=== PATIENT | female | born 1960 | race Caucasian/White ===

== ENCOUNTER 2017-02-17 12:41 | Observation (INO) | payer OTHER ==
[~2017-02-17] VITALS: Ht 147.3 cm; Wt 83.4 kg
[~2017-02-17 12:41] MED LIST: DICL50TA3 PO; LEVO125T4 PO; LORA-373 PO; OMEP40CA2 PO
[2017-02-17 15:18] VITALS: BP 127/90; PULSE 93; RESP 18; TEMP 99; O2SAT 96
[2017-02-17] MEDS ORDERED: SODIUM CHLORIDE 0.9% FLUSH 10 ML FLUSH IV FLUSH PRN (16:00)
[2017-02-17] MEDS: NS + KCL 20 MEQ INJ 1,000 ML IV SCH (17:08)
[2017-02-17] MEDS: ONDANSETRON HCL 4 MG/2 ML VIAL IV PUSH PRN ×2 (17:08→23:28)
[2017-02-17] MEDS: ACETAMINOPHEN/HYDROcodone 325 MG/5 MG TAB PO PRN (17:09)
--- NOTE | 2017-02-17 17:30 | HHI.HP ---
[facility] Jose Mancuso MD Admission Diagnosis Diagnoses: (1) Sepsis Diagnosis: Principal (2) Diverticulitis Diagnosis: Principal (3) Leukocytosis Diagnosis: Principal Chief Complaint: Abdominal pain Travel History International Travel<30 Days: No Contact w/Intl Traveler <30 Da: No Sepsis Criteria SIRS Criteria (2 or more): Heart rate over 90, WBC > 98442, < 4000 or > 10% bands Sepsis Criteria (SIRS+source): Infect source susp/known History of Present Illness Written by Juliano Joe, acting as scribe for Dr. Saini on 02/17/17 at 17: 30. 56 year-old female with known history of asthma, hypothyroidism, hyperlipidemia , gastroesophageal reflux who presented to hospital because of abdominal pain. Patient states that her symptoms started one week ago where she had a minor abdominal discomfort located in the left middle area which was a 3/10 on a pain scale. Patient states that on the pain started moving all over her abdomen with developing abdominal distention, shooting pain down in her abdomen. Patient states that she had been constipated for 2 days and has not been able to eat for the last 2 days. She is only been drinking fluids. She states that her last bowel movement was green. She denied any hematochezia, melena. She did have 2 episodes of nausea vomiting 1 time night and one time yesterday morning. She denied any hematemesis or coffee-ground emesis. Patient states that all but she can't get comfortable without lying down. She states that whenever she sat up her pain was 5-6 on a pain scale. Because her pain has not improved and progressively got worse she went to emergency department for evaluation. Patient was found to have criteria for sepsis with leukocytosis, tachycardia, and CT finding of diverticulitis. Patient denies any previous history of diverticulitis. She has never had a colonoscopy. Review of Systems Gastrointestinal: COMPLAINS OF: Abdominal pain, Constipation, Nausea, Vomiting Musculoskeletal: COMPLAINS OF: Joint pain Except as stated in HPI: all other systems reviewed are Neg Past Family Social History Past Medical History Hyperlipidemia Hypothyroidism asthma Gastroesophageal reflux Past Surgical History Hysterectomy Right hip surgery Hiatal hernia surgery Reported Medications Reported Meds & Active Scripts Active Reported Lorazepam 0.5 Mg Tab 0.5 Mg PO BID Levothyroxine (Levothyroxine Sodium) 125 Mcg Tab 125 Mcg PO DAILY Diclofenac Sodium DR (Diclofenac Sodium) 50 Mg Tabdr 50 Mg PO BID Omeprazole 40 Mg Cap 40 Mg PO DAILY Allergies: Coded Allergies: No Known Allergies (Verified Allergy, Unknown, 02/17/17) Family History Reviewed is significant for mother with diabetes, father had intracranial hemorrhage Social History Patient does smoke intermittently. Approximately 2 cigarettes a day. Denies any alcohol use. She does smoke marijuana occasionally Physical Exam Vital Signs Vital Signs Date Time Temp Pulse Resp B/P (MAP) Pulse Ox O2 Delivery O2 Flow Rate FiO2 02/17/17 15:18 99.0 93 18 127/90 (102) 96 Physical Exam GENERAL: Well-developed, well-nourished, in no acute distress. alert and orientated HEENT: Head is normocephalic without any lesions or masses noted. Facial features are symmetric. Eyes: Pupils equal round reactive to light. Extraocular muscles are intact. Conjunctivae were clear. Oropharyngeal: Pharynx without any erythema edema. Tongue is midline without deviation. Buccal mucosa is moist without any masses or lesions NECK: Supple without any masses. Trachea midline no deviation. No JVD, no bruits are appreciated CARDIAC: Regular rhythm, regular rate. S1/S2 are heard. No murmurs gallops or rubs. LUNGS: Clear to auscultation bilaterally. No wheeze, rhonchi or rales. No use of accessory muscles on inspiration or expiration. ABDOMEN: Soft, mild generalized abdominal tenderness. Nondistended. Bowel sounds heard in all 4 quadrants. No organomegaly or masses. Negative rebound, negative guarding EXTREMITIES: No edema, pulses are equal bilaterally. No cyanosis or clubbing NEUROLOGY: Mood and affect appear appropriate. Cranial nerves II through XII grossly intact. Muscle strength 5/5 in upper and lower extremities bilaterally. Deep tendon reflexes are 2+ in upper and lower extremities bilaterally. Septic Shock Reassessment Heart: Regular rate and rhythm Lungs: Clear Skin: Warm, [place] Peripheral Pulses: Bounding Right Radial Bounding Left Radial Capillary Refill: Brisk, <2 seconds Caprini VTE Risk Assessment Caprini VTE Risk Assessment: Mod/High Risk (score >= 2) Caprini Risk Assessment Model Point Value = 1 Point Value = 2 Point Value = 3 Point Value = 5 Age 41-60 Minor surgery BMI > 25 kg/m2 Swollen legs Varicose veins or History of unexplained or recurrent spontaneous Oral contraceptives or hormone replacement Sepsis (< 1 month) Serious lung disease, including pneumonia (< 1 month) Abnormal pulmonary function Acute myocardial infarction Congestive heart failure (< 1 month) History of inflammatory bowel disease Medical patient at bed rest Age 61-74 Arthroscopic surgery Major open surgery (> 45 min) Laparoscopic surgery (> 45 min) Malignancy Confined to bed (> 72 hours) Immobilizing plaster cast Central venous access Age >= 75 History of VTE Family history of VTE Factor V Leiden Prothrombin [id number] Lupus anticoagulant Anticardiolipin antibodies Elevated serum homocysteine Heparin-induced thrombocytopenia Other congenital or acquired thrombophilia Stroke (< 1 month) Elective arthroplasty Hip, pelvis, or leg fracture Acute spinal cord injury (< 1 month) Prophylaxis Regimen Total Risk Factor Score Risk Level Prophylaxis Regimen 0-1 Low Early ambulation 2 Moderate Order ONE of the following: *Sequential Compression Device (SCD) *Heparin 5000 units SQ BID 3-4 Higher Order ONE of the following medications: *Heparin 5000 units SQ TID *Enoxaparin/Lovenox 40 mg SQ daily (WT < 150 kg, CrCl > 30 mL/min) *Enoxaparin/Lovenox 30 mg SQ daily (WT < 150 kg, CrCl > 10-29 mL/min) *Enoxaparin/Lovenox 30 mg SQ BID (WT < 150 kg, CrCl > 30 mL/min) AND/OR *Sequential Compression Device (SCD) 5 or more Highest Order ONE of the following medications: *Heparin 5000 units SQ TID (Preferred with Epidurals) *Enoxaparin/Lovenox 40 mg SQ daily (WT < 150 kg, CrCl > 30 mL/min) *Enoxaparin/Lovenox 30 mg SQ daily (WT < 150 kg, CrCl > 10-29 mL/min) *Enoxaparin/Lovenox 30 mg SQ BID (WT < 150 kg, CrCl > 30 mL/min) AND *Sequential Compression Device (SCD) Assessment and Plan Assessment and Plan Sepsis Patient met criteria on admission with leukocytosis, tachycardia, radiculitis Patient started on empirical antibiotics include Cipro and Flagyl Urine analysis was unremarkable Obtain blood cultures Monitor for any fever, signs of worsening infection Diverticulitis CT scan does indicate focal inflammatory changes with the mid sigmoid colon suggestive of diverticulitis. Patient started on Cipro and Flagyl Continue nothing by mouth, IV fluids, pain control Monitor for clinical improvement Hypothyroidism Continue home medications DVT prevention Sequential compression devices Juliano Joe Feb 17, 2017 17:30 Pretty Saini MD Feb 17, 2017 17:30
[2017-02-17 20:00] VITALS: BP 133/94; PULSE 91; RESP 18; TEMP 98.3; O2SAT 96
[2017-02-17] MEDS: metroNIDAZOLE 500 MG INJ 100 ML IV SCH (20:42)
[2017-02-17] MEDS: SODIUM CHLORIDE 0.9% FLUSH 10 ML FLUSH IV FLUSH SCH (21:00)
[2017-02-17] MEDS ORDERED: PROMETHAZINE HCL 25 MG SUPP RECTAL ONE (21:30)
[2017-02-17] MEDS: CIPROFLOXACIN 400 MG PREMIX 200 ML IV SCH (21:52)
[2017-02-17] MEDS: ACETAMINOPHEN 325 MG TAB PO PRN (23:37)
[2017-02-18] VITALS: BP 112/75; PULSE 84; RESP 16; TEMP 98; O2SAT 95
[2017-02-18 04:00] VITALS: BP 102/67; PULSE 82; RESP 18; TEMP 97.7; O2SAT 96
[2017-02-18] MEDS: metroNIDAZOLE 500 MG INJ 100 ML IV SCH ×3 (04:13→21:14)
[2017-02-18] MEDS: NS + KCL 20 MEQ INJ 1,000 ML IV SCH ×2 (04:13→15:59)
[2017-02-18] MEDS: LEVOTHYROXINE SODIUM 125 MCG TAB PO SCH (05:24)
[2017-02-18 07:08] LABS: BASOPHIL # 0.1 TH/MM3 (0-0.2); BASOPHIL % 0.8 % (0.0-2.0); EOSINOPHIL # 0.2 TH/MM3 (0-0.4); EOSINOPHIL % 1.4 % (0.0-4.0); HEMATOCRIT 37.1 % (35.0-46.0); HEMO FLAGS DIFF FINAL; LYMPH % 17.4 % (9.0-44.0); LYMPHOCYTE # 2.2 TH/MM3 (1.0-4.8); MEAN CELL VOLUME 87.6 FL (80.0-100.0); MEAN CORPUSCULAR HEMOGLOBIN 29.3 PG (27.0-34.0); MEAN CORPUSCULAR HGB CONC 33.4 % (32.0-36.0); MONO % 8.9 % (0.0-8.0); NEUT % 71.5 % (16.0-70.0); PLATELET COUNT 195 TH/MM3 (150-450); RED BLOOD COUNT 4.23 MIL/MM3 (4.00-5.30); RED CELL DISTRIBUTION WIDTH 13.2 % (11.6-17.2); WHITE BLOOD COUNT 12.6 TH/MM3 (4.0-11.0)
[2017-02-18 07:09] LABS: POTASSIUM 3.7 MEQ/L (3.5-5.1)
[2017-02-18 07:12] LABS: BICARBONATE 25.4 MEQ/L (21.0-32.0)
[2017-02-18 08:00] VITALS: BP 116/79; PULSE 85; RESP 16; TEMP 98.7; O2SAT 95
[2017-02-18] MEDS: PANTOPRAZOLE SOD 40 MG DELAYED RELEASE TAB PO SCH (09:25)
[2017-02-18] MEDS: SODIUM CHLORIDE 0.9% FLUSH 10 ML FLUSH IV FLUSH SCH ×2 (09:25→21:00)
[2017-02-18] MEDS: CIPROFLOXACIN 400 MG PREMIX 200 ML IV SCH ×2 (09:25→22:30)
[2017-02-18] MEDS: ACETAMINOPHEN/HYDROcodone 325 MG/5 MG TAB PO PRN ×2 (09:26→22:30)
[2017-02-18] MEDS: ONDANSETRON HCL 4 MG/2 ML VIAL IV PUSH PRN (09:26)
[2017-02-18 12:00] VITALS: BP 99/70; PULSE 83; RESP 15; TEMP 97.9; O2SAT 95
--- NOTE | 2017-02-18 12:18 | HHI.PR ---
Subjective Remarks No abdominal pain, no nausea or vomiting, patient eating Jell-O and doing well with that Objective Vitals Vital Signs Date Time Temp Pulse Resp B/P (MAP) Pulse Ox O2 Delivery O2 Flow Rate FiO2 02/18/17 10:36 18 02/18/17 08:00 98.7 85 16 116/79 (91) 95 02/18/17 04:00 97.7 82 18 102/67 (79) 96 02/18/17 00:00 98.0 84 16 112/75 (87) 95 02/17/17 20:00 98.3 91 18 133/94 (107) 96 02/17/17 15:18 99.0 93 18 127/90 (102) 96 I/O 02/17/17 02/17/17 02/17/17 02/18/17 02/18/17 02/18/17 07:00 15:00 23:00 07:00 15:00 23:00 Intake Total 1672 ml 1420 ml Balance 1672 ml 1420 ml Intake Oral 480 ml 480 ml IV Total 1192 ml 940 ml # Voids 5 3 # Bowel Movements 0 0 Result Diagram: 02/18/17 0650 02/18/17 0650 Objective Remarks GENERAL: This is a well-nourished, well-developed patient, in no apparent distress. SKIN: No rashes, warm and dry HEAD: Atraumatic. Normocephalic. EYES: Pupils equal round and reactive. Extraocular motions intact. No scleral icterus. ENT: Nose without bleeding, or drainage, Airway patent. NECK: Trachea midline. Supple CARDIOVASCULAR: Regular rate and rhythm without murmurs, gallops, or rubs. RESPIRATORY: Fair air entry bilaterally. No wheezes, rales, or rhonchi. GASTROINTESTINAL: Abdomen soft, non-tender, nondistended. Positive bowel sounds MUSCULOSKELETAL: Extremities without clubbing, cyanosis, or edema. Pedal pulses appreciated NEUROLOGICAL: Awake and alert. Moves all extremity. Normal speech.no focal neurological deficit A/P Problem List: (1) Sepsis ICD Code: A41.9 - Sepsis, unspecified organism (2) Diverticulitis ICD Code: K57.92 - Diverticulitis of intestine, part unspecified, without perforation or abscess without bleeding (3) Leukocytosis ICD Code: D72.829 - Elevated white blood cell count, unspecified Assessment and Plan Sepsis Patient met criteria on admission with leukocytosis, tachycardia, diverticuli Continue empirical antibiotics include Cipro and Flagyl Urine analysis was unremarkable Obtain blood cultures Monitor for any fever, signs of worsening infection Leukocytosis 12 K BTB seen and Diverticulitis CT scan does indicate focal inflammatory changes with the mid sigmoid colon suggestive of diverticulitis. Patient started on Cipro and Flagyl Continue nothing by mouth, IV fluids, pain control Monitor for clinical improvement Hypothyroidism Continue home medications Pretty Saini MD Feb 18, 2017 12:18
[2017-02-18 16:00] VITALS: BP 116/77; PULSE 92; RESP 16; TEMP 99.3; O2SAT 94
[2017-02-18 20:00] VITALS: BP 123/73; PULSE 101; RESP 20; TEMP 99.7; O2SAT 93
[2017-02-19] VITALS: BP 116/76; PULSE 98; RESP 18; TEMP 98.6; O2SAT 93
[2017-02-19] MEDS: NS + KCL 20 MEQ INJ 1,000 ML IV SCH ×2 (03:45→17:20)
[2017-02-19] MEDS: ACETAMINOPHEN 325 MG TAB PO PRN (05:41)
[2017-02-19] MEDS: LEVOTHYROXINE SODIUM 125 MCG TAB PO SCH (05:41)
[2017-02-19] MEDS: metroNIDAZOLE 500 MG INJ 100 ML IV SCH ×3 (07:27→20:36)
[2017-02-19 08:00] VITALS: BP 132/73; PULSE 87; RESP 18; TEMP 97.5; O2SAT 95
[2017-02-19] MEDS: PANTOPRAZOLE SOD 40 MG DELAYED RELEASE TAB PO SCH (08:42)
[2017-02-19] MEDS: SODIUM CHLORIDE 0.9% FLUSH 10 ML FLUSH IV FLUSH SCH ×2 (08:47→21:00)
[2017-02-19] MEDS: CIPROFLOXACIN 400 MG PREMIX 200 ML IV SCH ×3 (08:47→22:22)
--- NOTE | 2017-02-19 10:49 | HHI.PR ---
Subjective Remarks Patient still having significant tenderness to palpation in her abdomen No nausea or vomiting, she did pass some stool no blood I would keep her tonight for 1 more day of iv antibiotic, slowly advance her diet hopefully discharge in a.m. if abdominal pain improved Objective Vitals Vital Signs Date Time Temp Pulse Resp B/P (MAP) Pulse Ox O2 Delivery O2 Flow Rate FiO2 02/19/17 08:00 97.5 87 18 132/73 (92) 95 02/19/17 00:00 98.6 98 18 116/76 (89) 93 02/18/17 20:00 99.7 101 20 123/73 (90) 93 02/18/17 16:00 99.3 92 16 116/77 (90) 94 02/18/17 12:00 97.9 83 15 99/70 (80) 95 I/O 02/18/17 02/18/17 02/18/17 02/19/17 02/19/17 02/19/17 07:00 15:00 23:00 07:00 15:00 23:00 Intake Total 1420 ml 720 ml 755 ml 1100 ml Balance 1420 ml 720 ml 755 ml 1100 ml Intake Oral 480 ml 420 ml 480 ml 480 ml IV Total 940 ml 300 ml 275 ml 620 ml # Voids 3 1 4 3 # Bowel Movements 0 0 0 Result Diagram: 02/18/1750 02/18/17 0650 Objective Remarks GENERAL: This is a well-nourished, well-developed patient, in no apparent distress. SKIN: No rashes, warm and dry HEAD: Atraumatic. Normocephalic. EYES: Pupils equal round and reactive. Extraocular motions intact. No scleral icterus. ENT: Nose without bleeding, or drainage, Airway patent. NECK: Trachea midline. Supple CARDIOVASCULAR: Regular rate and rhythm without murmurs, gallops, or rubs. RESPIRATORY: Fair air entry bilaterally. No wheezes, rales, or rhonchi. GASTROINTESTINAL: Abdomen soft, non-tender, nondistended. Positive bowel sounds MUSCULOSKELETAL: Extremities without clubbing, cyanosis, or edema. Pedal pulses appreciated NEUROLOGICAL: Awake and alert. Moves all extremity. Normal speech.no focal neurological deficit A/P Problem List: (1) Sepsis ICD Code: A41.9 - Sepsis, unspecified organism (2) Diverticulitis ICD Code: K57.92 - Diverticulitis of intestine, part unspecified, without perforation or abscess without bleeding (3) Leukocytosis ICD Code: D72.829 - Elevated white blood cell count, unspecified Assessment and Plan Sepsis Patient met criteria on admission with leukocytosis, tachycardia, diverticuli Continue empirical antibiotics include Cipro and Flagyl Urine analysis was unremarkable Obtain blood cultures Monitor for any fever, signs of worsening infection Leukocytosis 12 K BTB seen and Diverticulitis CT scan does indicate focal inflammatory changes with the mid sigmoid colon suggestive of diverticulitis. Patient started on Cipro and Flagyl Advance diet gradually, DC IV fluids when oral diet improved, pain control Monitor for clinical improvement Hypothyroidism Continue home medications Discharge Planning In a.m. if abdominal tenderness improved Pretty Saini MD Feb 19, 2017 10:49
[2017-02-19 12:00] VITALS: BP 142/94; PULSE 92; RESP 18; TEMP 98.4; O2SAT 96
[2017-02-19 16:00] VITALS: BP_SYST 110; BP_SYST 136; BP_DIAS 63; BP_DIAS 78; PULSE 112; PULSE 60; RESP 18; RESP 20; TEMP 97.8; TEMP 99; O2SAT 95; O2SAT 96
[2017-02-19 20:00] VITALS: BP 114/76; PULSE 112; RESP 18; TEMP 99.8; O2SAT 94
[2017-02-20] VITALS: BP 124/76; PULSE 106; RESP 20; TEMP 98.2; O2SAT 96
[2017-02-20] MEDS: NS + KCL 20 MEQ INJ 1,000 ML IV SCH (03:39)
[2017-02-20] MEDS: metroNIDAZOLE 500 MG INJ 100 ML IV SCH (03:39)
[2017-02-20] MEDS: LEVOTHYROXINE SODIUM 125 MCG TAB PO SCH (05:28)
[2017-02-20 08:00] VITALS: BP 119/91; PULSE 84; RESP 20; TEMP 97.8; O2SAT 96
[2017-02-20] MEDS: SODIUM CHLORIDE 0.9% FLUSH 10 ML FLUSH IV FLUSH SCH (09:42)
[2017-02-20] MEDS: CIPROFLOXACIN 400 MG PREMIX 200 ML IV SCH (09:42)
[2017-02-20] MEDS: PANTOPRAZOLE SOD 40 MG DELAYED RELEASE TAB PO SCH (09:42)
[2017-02-20] MEDS ORDERED: CIPR-9 PO (11:26)
[2017-02-20] MEDS ORDERED: METR500T10 PO (11:26)
--- NOTE | 2017-02-20 11:27 | HHI.DCPOC ---
Discharge Care Plan Diagnosis: (1) Diverticulitis Goals to Promote Your Health * To prevent worsening of your condition and complications * To maintain your health at the optimal level Directions to Meet Your Goals Take your medications as prescribed Follow your dietary instruction Follow activity as directed Keep your appointments as scheduled Take your immunizations and boosters as scheduled If your symptoms worsen call your PCP, if no PCP go to Urgent Care Center or Emergency Room Smoking is Dangerous to Your Health. Avoid second hand smoke Call the 24-hour hour crisis hotline for domestic abuse at Subha Martinez MD Feb 20, 2017 11:27
--- NOTE | 2017-02-20 11:29 | HHI.DS ---
Discharge Summary Admission Date Feb 17, 2017 at 15:08 Discharge Date: Feb 20, 2017 Admitting Diagnosis Diverticulitis (1) Sepsis ICD Code: A41.9 - Sepsis, unspecified organism Diagnosis: Principal (2) Diverticulitis ICD Code: K57.92 - Diverticulitis of intestine, part unspecified, without perforation or abscess without bleeding Diagnosis: Principal (3) Leukocytosis ICD Code: D72.829 - Elevated white blood cell count, unspecified Diagnosis: Principal Procedures none Brief History - From Admission Written by Juliano Joe, acting as scribe for Dr. Saini on 02/17/17 at 17: 30. 56 year-old female with known history of asthma, hypothyroidism, hyperlipidemia , gastroesophageal reflux who presented to hospital because of abdominal pain. Patient states that her symptoms started one week ago where she had a minor abdominal discomfort located in the left middle area which was a 3/10 on a pain scale. Patient states that on the pain started moving all over her abdomen with developing abdominal distention, shooting pain down in her abdomen. Patient states that she had been constipated for 2 days and has not been able to eat for the last 2 days. She is only been drinking fluids. She states that her last bowel movement was green. She denied any hematochezia, melena. She did have 2 episodes of nausea vomiting 1 time night and one time yesterday morning. She denied any hematemesis or coffee-ground emesis. Patient states that all but she can't get comfortable without lying down. She states that whenever she sat up her pain was 5-6 on a pain scale. Because her pain has not improved and progressively got worse she went to emergency department for evaluation. Patient was found to have criteria for sepsis with leukocytosis, tachycardia, and CT finding of diverticulitis. Patient denies any previous history of diverticulitis. She has never had a colonoscopy. CBC/BMP: 02/18/17 0650 02/18/17 0650 Significant Findings Laboratory Tests Test 02/18/17 06:50 White Blood Count 12.6 TH/MM3 (4.0-11.0) Neutrophils (%) (Auto) 71.5 % (16.0-70.0) Monocytes (%) (Auto) 8.9 % (0.0-8.0) Neutrophils # (Auto) 9.0 TH/MM3 (1.8-7.7) Monocytes # (Auto) 1.1 TH/MM3 (0-0.9) Calcium Level 8.3 MG/DL (8.5-10.1) Imaging CT abdomen and pelvis completed 02/17 at [facility], did show mid sigmoid diverticulitis PE at Discharge GENERAL: This is a well-nourished, well-developed patient, in no apparent distress. SKIN: No rashes, warm and dry HEAD: Atraumatic. Normocephalic. EYES: Pupils equal round and reactive. Extraocular motions intact. No scleral icterus. ENT: Nose without bleeding, or drainage, Airway patent. NECK: Trachea midline. Supple CARDIOVASCULAR: Regular rate and rhythm without murmurs, gallops, or rubs. RESPIRATORY: Fair air entry bilaterally. No wheezes, rales, or rhonchi. GASTROINTESTINAL: Abdomen soft, non-tender, nondistended. Positive bowel sounds MUSCULOSKELETAL: Extremities without clubbing, cyanosis, or edema. Pedal pulses appreciated NEUROLOGICAL: Awake and alert. Moves all extremity. Normal speech.no focal neurological deficit Pt update on day of discharge Patient seen and evaluated in follow-up for diverticulitis. Overall improved. Abdominal pain and bowels are improved. No fever. Discharge plans discussed with patient and family at bedside Hospital Course This patient is a 56 her female who is treated for a flare of diverticulitis. She has had diverticular disease in the past but never had a flare of the inflammation. She was given IV antibiotics and improved. Overall patient did well and was discharged home after IV fluids and antibiotics Pt Condition on Discharge: Good Discharge Disposition: Discharge Home Discharge Time: > 30 minutes Discharge Instructions DIET: Follow Instructions for: Diverticulitis Diet, Low Fat Diet Activities you can perform: Regular-No Restrictions Follow up Referrals: PCP Follow-up - 1 Week New Medications: Ciprofloxacin (Cipro) 500 Mg Tab 500 MG PO BID for Infection, #20 TAB 0 Refills Metronidazole (Metronidazole) 500 Mg Tab 500 MG PO TID for Infection, #30 TAB 0 Refills Continued Medications: Diclofenac Sodium DR (Diclofenac Sodium DR) 50 Mg Tabdr 50 MG PO BID, TAB 0 Refills Levothyroxine (Levothyroxine) 125 Mcg Tab 125 MCG PO DAILY for Thyroid, TAB 0 Refills Lorazepam (Lorazepam) 0.5 Mg Tab 0.5 MG PO BID, TAB 0 Refills Omeprazole (Omeprazole) 40 Mg Cap 40 MG PO DAILY, CAP 0 Refills Subha Martinez MD Feb 20, 2017 11:29
== END 2017-02-20 12:52 | disposition home or self-care (01) ==
LOC: PHEDDLT 14:58 → PH3A 15:08
PROVIDERS: ADMIT Hospitalist; ATTEND Hospitalist
DX: K57.92 Diverticulitis of intestine, part unspecified, without perforation or abscess without bleeding (principal); A41.9 Sepsis, unspecified organism; E03.9 Hypothyroidism, unspecified; R00.0 Tachycardia, unspecified; K21.9 Gastro-esophageal reflux disease without esophagitis; J45.909 Unspecified asthma, uncomplicated; E78.5 Hyperlipidemia, unspecified; K59.00 Constipation, unspecified; R11.2 Nausea with vomiting, unspecified; F17.210 Nicotine dependence, cigarettes, uncomplicated; F12.90 Cannabis use, unspecified, uncomplicated
CPT/HCPCS: 74177; 80048; 80053; 81001; 83690; 85025; 87040; 96365; 96366; 96368; 96375; G0378; J0744; J2405; J3480; J7030; Q9967; 96361; 96367

== ENCOUNTER 2017-04-06 20:00 | Inpatient (IN) | payer OTHER, MEDICARE ==
[~2017-04-06] VITALS: Ht 147.3 cm; Wt 83.0 kg
[~2017-04-06 20:00] MED LIST changes: +CIPR-9 PO; -LORA-373 PO; +LORA0.5T PO; +METR1TAB76 PO
[2017-04-06 20:14] VITALS: BP 147/103; PULSE 125; RESP 18; TEMP 97.9; O2SAT 96
[2017-04-06 23:21] VITALS: BP 133/92; PULSE 98; RESP 18; O2SAT 95
[2017-04-06] MEDS ORDERED: SODIUM CHLOR 0.9% 1000 ML INJ 1,000 ML IV SCH (23:54)
[2017-04-07] VITALS (8 sets, daily range): BP systolic 94–133; BP diastolic 67–87; PULSE 75–84; RESP 18–20; TEMP 96.5–98; O2SAT 93–97
[2017-04-07] MEDS ORDERED: ONDANSETRON HCL 4 MG/2 ML VIAL IVP ONE
[2017-04-07] MEDS ORDERED: MORPHINE SULFATE 4 MG/ML INJ IV PUSH ONE
[2017-04-07] MEDS ORDERED: PIPERACIL-TAZO 3.375 GM PREMIX 50 ML IV ONE
[2017-04-07 00:34] LABS: AUTOMATED NEUTROPHIL # 8.7 TH/MM3 (1.8-7.7); BASOPHIL # 0.1 TH/MM3 (0-0.2); BASOPHIL % 0.7 % (0.0-2.0); EOSINOPHIL # 0.1 TH/MM3 (0-0.4); EOSINOPHIL % 1.2 % (0.0-4.0); HEMATOCRIT 43.7 % (35.0-46.0); LYMPH % 16.6 % (9.0-44.0); LYMPHOCYTE # 1.9 TH/MM3 (1.0-4.8); MEAN CELL VOLUME 88.5 FL (80.0-100.0); MEAN CORPUSCULAR HGB CONC 31.7 % (32.0-36.0); MONO % 6.4 % (0.0-8.0); NEUT % 75.1 % (16.0-70.0); PLATELET COUNT 296 TH/MM3 (150-450); RED BLOOD COUNT 4.94 MIL/MM3 (4.00-5.30); RED CELL DISTRIBUTION WIDTH 14.2 % (11.6-17.2); WHITE BLOOD COUNT 11.5 TH/MM3 (4.0-11.0)
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
[2017-04-07 00:41] LABS: HEMO FLAGS DIFF FINAL
[2017-04-07 00:43] LABS: CHLORIDE 104 MEQ/L (98-107); POTASSIUM 3.3 MEQ/L (3.5-5.1); SODIUM (NA) 136 MEQ/L (136-145)
[2017-04-07 00:47] LABS: ANION GAP 8 MEQ/L (5-15); BICARBONATE 24.3 MEQ/L (21.0-32.0); BLOOD UREA NITROGEN 14 MG/DL (7-18)
[2017-04-07 00:50] LABS: ALT (GPT) 20 U/L (10-53); AST (GOT) 13 U/L (15-37); GLOMERULAR FILTRATION RATE 85 ML/MIN (>89)
[2017-04-07 00:51] LABS: TOTAL BILIRUBIN ADULT 0.3 MG/DL (0.2-1.0)
[2017-04-07 00:53] LABS: ALKALINE PHOSPHATASE 87 U/L (45-117)
[2017-04-07] MEDS ORDERED: LACTULOSE SYRUP 20 GM/30 ML CUP PO PRN (01:00)
[2017-04-07] MEDS ORDERED: SODIUM CHLORIDE 0.9% FLUSH 10 ML FLUSH IV FLUSH PRN ×2 (01:00)
[2017-04-07] MEDS ORDERED: MAGNESIUM HYDROXIDE SUSP 30 ML CUP PO PRN (01:00)
[2017-04-07] MEDS ORDERED: SENNOSIDES 8.6 MG TAB PO PRN (01:00)
[2017-04-07] MEDS ORDERED: BISACODYL 10 MG SUPP RECTAL PRN (01:00)
[2017-04-07] MEDS ORDERED: ACETAMINOPHEN 325 MG TAB PO PRN (01:00)
[2017-04-07 01:04] LABS: APTT (PATIENT) 27.1 SEC (24.3-30.1); PROTHROMBIN TIME - PATIENT 10.8 SEC (9.8-11.6)
--- NOTE | 2017-04-07 01:05 | PD ---
HPI Chief Complaint: Abdominal Pain Time Seen by Provider: 23:54 Travel History International Travel<30 days: No Contact w/Intl Traveler<30days: No Traveled to known affect area: No History of Present Illness HPI 56-year-old female presents to the emergency department for evaluation of acute diverticulitis with abscess. Patient states she's had abdominal pain and recurrent diverticulitis since the middle of February with hospitalization here in the [facility] as well as in [place]. Patient was seen by her service correspondent today who is located in the [facility] area and she was referred to [facility] for an outpatient CT abdomen and pelvis. Patient was informed by her service correspondent that it showed evidence of acute diverticulitis and abscess and patient is currently taking Cipro and Flagyl for diverticulitis. Patient has had subjective fever and chills. Patient denies nausea or vomiting. Patient was encouraged to come to the hospital to be admitted and patient decided to return to [place] instead of staying in the [facility]. Patient denies other concerns or complaints. Patient is unable to identify exacerbating or alleviating factors. Patient rates her pain 6-8/10 in intensity. PFS Past Medical History Narrative Medical anxiety diverticulitis hypothyroidism tobacco use marijuana use nursing notes reviewed Anxiety: Yes Cancer: No Cardiovascular Problems: No Diminished Hearing: No Diverticulitis: Yes GERD: Yes Genitourinary: No Hiatal Hernia: Yes Musculoskeletal: No Neurologic: No Psychiatric: Yes Reproductive: No Respiratory: No Thyroid Disease: Yes Influenza Vaccination: Yes ?: Not Past Surgical History Abdominal Surgery: Yes (HERNIA REPAIR) Cardiac Surgery: No Gynecologic Surgery: Yes (ablation) Hysterectomy: Yes (Partial) Other Surgery: Yes Social History Alcohol Use: No Tobacco Use: Yes (ocassional) Substance Use: Yes (MARIJUANA OCC) Allergies-Medications (Allergen,Severity, Reaction): Coded Allergies: No Known Allergies (Verified Allergy, Unknown, 02/17/17) Reported Meds & Prescriptions Reported Meds & Active Scripts Active Metronidazole 500 Mg Tab 500 Mg PO TID Cipro (Ciprofloxacin HCl) 500 Mg Tab 500 Mg PO BID Reported Lorazepam 0.5 Mg Tab 0.5 Mg PO BID Levothyroxine (Levothyroxine Sodium) 125 Mcg Tab 125 Mcg PO DAILY Diclofenac Sodium DR (Diclofenac Sodium) 50 Mg Tabdr 50 Mg PO BID Omeprazole 40 Mg Cap 40 Mg PO DAILY Review of Systems Except as stated in HPI: all other systems reviewed are Neg General / Constitutional: Positive: Fever, Chills HENT: No: Congestion Cardiovascular: No: Chest Pain or Discomfort Respiratory: No: Shortness of Breath Gastrointestinal: Positive: Nausea, Abdominal Pain, No: Vomiting, Diarrhea Genitourinary: No: Flank Pain Musculoskeletal: No: Myalgias, Arthralgias Skin: No Rash Neurologic: No: Weakness Psychiatric: Positive: Anxiety Endocrine: No: Heat Intolerance Hematologic/Lymphatic: No: Easy Bruising Physical Exam Narrative GENERAL: Well-developed well-nourished female in no respiratory distress SKIN: Warm and dry. HEAD: Normocephalic. EYES: No scleral icterus. No injection or drainage. NECK: Supple, trachea midline. No JVD or lymphadenopathy. CARDIOVASCULAR: Regular rate and rhythm without murmurs, gallops, or rubs. RESPIRATORY: Breath sounds equal bilaterally. No accessory muscle use. GASTROINTESTINAL: Abdomen soft, bilateral lower quadrant tenderness to palpation without guarding or rebound, nondistended. MUSCULOSKELETAL: No cyanosis, or edema. BACK: Nontender without obvious deformity. No CVA tenderness. Data Data Last Documented VS Vital Signs Date Time Temp Pulse Resp B/P (MAP) Pulse Ox O2 Delivery O2 Flow Rate FiO2 04/07/17 00:49 95 Room Air 04/07/17 00:46 16 04/06/17 23:21 98 04/06/17 20:14 97.9 Orders Orders Complete Blood Count With Diff (04/06/17 23:54) Comprehensive Metabolic Panel (04/06/17 23:54) Lipase (04/06/17 23:54) Lactic Acid (04/06/17 23:54) Prothrombin Time / Inr (Pt) (04/06/17 23:54) Act Partial Throm Time (Ptt) (04/06/17 23:54) Urinalysis - C+S If Indicated (04/06/17 23:54) Iv Access Insert/Monitor (04/06/17 23:54) Ecg Monitoring (04/06/17 23:54) Oximetry (04/06/17 23:54) Morphine Inj (Morphine Inj) (04/07/17 00:00) Ondansetron Inj (Zofran Inj) (04/07/17 00:00) Sodium Chlor 0.9% 1000 Ml Inj (Ns 1000 M (04/06/17 23:54) Sodium Chloride 0.9% Flush (Ns Flush) (04/07/17 00:00) Chest, Single Ap (04/06/17 23:54) Piperacil-Tazo 3.375 Gm Premix (Zosyn 3. (04/07/17 00:00) NPO (04/06/17 23:54) Blood Culture (04/06/17 23:54) Piperacil-Tazo 4.5 Gm Premix (Zosyn 4.5 (04/07/17 06:00) Admit To Inpatient (04/07/17 ) Vital Signs (Adult) Q4H (04/07/17 00:57) Activity Oob With Assistance (04/07/17 00:57) Intake + Output RAEANN.QSHIFT (04/07/17 00:57) Diet Npo (04/07/17 Breakfast) Sodium Chlor 0.9% 1000 Ml Inj (Ns 1000 M (04/07/17 00:57) Sodium Chloride 0.9% Flush (Ns Flush) (04/07/17 01:00) Sodium Chloride 0.9% Flush (Ns Flush) (04/07/17 09:00) Ondansetron Inj (Zofran Inj) (04/07/17 01:00) Comprehensive Metabolic Panel (04/08/17 06:00) Complete Blood Count With Diff (04/08/17 06:00) Scd Bilateral/Knee High RAEANN.BID (04/07/17 00:57) Tee Bilateral/Knee High RAEANN.QSHIFT (04/07/17 01:00) Acetaminophen (Tylenol) (04/07/17 01:00) Morphine Inj (Morphine Inj) (04/07/17 01:00) Morphine Inj (Morphine Inj) (04/07/17 01:00) Docusate Sodium-Senna (Kelly-Colace) (04/07/17 09:00) Magnesium Hydroxide Liq (Milk Of Magnesi (04/07/17 01:00) Sennosides (Senokot) (04/07/17 01:00) Bisacodyl Supp (Dulcolax Supp) (04/07/17 01:00) Lactulose Liq (Lactulose Liq) (04/07/17 01:00) Inpatient Certification (04/07/17 ) Levothyroxine (Synthroid) (04/07/17 06:00) Lorazepam (Ativan) (04/07/17 09:00) Pantoprazole (Protonix) (04/07/17 09:00) Admit Order (Ed Use Only) (04/07/17 ) Activity Oob With Assistance (04/07/17 00:59) Notify Dr: Other (04/07/17 00:59) Consult General Surgery (04/07/17 ) Invasive Rad Dept Consult (04/07/17 ) Analytics Developer / Telemetry RAEANN.Q8H (04/07/17 00:59) Labs Laboratory Tests Test 04/07/17 00:15 White Blood Count 11.5 TH/MM3 Red Blood Count 4.94 MIL/MM3 Hemoglobin 13.8 GM/DL Hematocrit 43.7 % Mean Corpuscular Volume 88.5 FL Mean Corpuscular Hemoglobin 28.0 PG Mean Corpuscular Hemoglobin Concent 31.7 % Red Cell Distribution Width 14.2 % Platelet Count 296 TH/MM3 Mean Platelet Volume 8.8 FL Neutrophils (%) (Auto) 75.1 % Lymphocytes (%) (Auto) 16.6 % Monocytes (%) (Auto) 6.4 % Eosinophils (%) (Auto) 1.2 % Basophils (%) (Auto) 0.7 % Neutrophils # (Auto) 8.7 TH/MM3 Lymphocytes # (Auto) 1.9 TH/MM3 Monocytes # (Auto) 0.7 TH/MM3 Eosinophils # (Auto) 0.1 TH/MM3 Basophils # (Auto) 0.1 TH/MM3 CBC Comment DIFF FINAL Differential Comment Prothrombin Time 10.8 SEC Prothromb Time International Ratio 1.0 RATIO Activated Partial Thromboplast Time 27.1 SEC Blood Urea Nitrogen 14 MG/DL Creatinine 0.71 MG/DL Random Glucose 113 MG/DL Total Protein 8.3 GM/DL Albumin 3.0 GM/DL Calcium Level 9.0 MG/DL Alkaline Phosphatase 87 U/L Aspartate Amino Transf (AST/SGOT) 13 U/L Alanine Aminotransferase (ALT/SGPT) 20 U/L Total Bilirubin 0.3 MG/DL Sodium Level 136 MEQ/L Potassium Level 3.3 MEQ/L Chloride Level 104 MEQ/L Carbon Dioxide Level 24.3 MEQ/L Anion Gap 8 MEQ/L Estimat Glomerular Filtration Rate 85 ML/MIN Lactic Acid Level 0.9 mmol/L Lipase 126 U/L MDM Medical Decision Making Medical Screen Exam Complete: Yes Emergency Medical Condition: Yes Medical Record Reviewed: Yes Interpretation(s) Last Impressions Chest X-Ray 04/06/17 [id number] Signed Impressions: Service Date/Time: Friday, April 07, 2017 00:11 - CONCLUSION: No acute abnormality is identified. Jose Martinez MD CBC & BMP Diagram 04/07/17 00:15 Total Protein 8.3 H, Albumin 3.0 L, Calcium Level 9.0, Alkaline Phosphatase 87, Aspartate Amino Transf (AST/SGOT) 13 L, Alanine Aminotransferase (ALT/SGPT) 20, Total Bilirubin 0.3 Vital Signs Date Time Temp Pulse Resp B/P (MAP) Pulse Ox O2 Delivery O2 Flow Rate FiO2 04/07/17 00:49 95 Room Air 04/07/17 00:46 16 04/06/17 23:21 98 18 133/92 (106) 95 Room Air 04/06/17 23:14 18 04/06/17 20:14 97.9 125 18 147/103 (118) 96 Differential Diagnosis Abdominal pain, diverticulitis, abscess, perforation, UTI Narrative Course Request for patient's CT abdomen and pelvis performed at 3:30 [facility] was obtained and was consistent with a 3.3 x 3.2 x 3.4 cm abscess of the mid inferior wall of the sigmoid: Adherent to the wall with inflammatory changes of the bladder no free air no free fluid. Patient's imaging study was discussed with on-call general surgery and interventional radiology. Patient will be admitted to [facility] with consult to general surgery and interventional radiology regarding possible drain placement. Lab values resulted and patient given IV dose of Zosyn as she has developed abscess while on Cipro and Flagyl and continues to have evidence of acute diverticulitis on outpatient oral antibiotic. Patient's case also discussed with KYARA Melendez for admission Patient is aware of plan for admission and pain has been managed with morphine. Physician Communication Physician Communication Discussed with Gen. surgery; interventional radiology; medicine service Diagnosis Primary Impression: Abscess of sigmoid colon due to diverticulitis Admitting Information Admitting Physician Requests: Admit Isi Arellano MD Apr 07, 2017 01:05
[2017-04-07] MEDS: SODIUM CHLOR 0.9% 1000 ML INJ 1,000 ML IV SCH ×4 (01:52→23:59)
[2017-04-07] MEDS: ONDANSETRON HCL 4 MG/2 ML VIAL IVP PRN ×3 (02:56→18:27)
[2017-04-07] MEDS: MORPHINE SULFATE 4 MG/ML INJ IV PUSH PRN ×2 (02:57→06:39)
[2017-04-07] MEDS: LEVOTHYROXINE SODIUM 125 MCG TAB PO SCH (06:38)
[2017-04-07] MEDS: PIPERACIL-TAZO 4.5 GM PREMIX 100 ML IV SCH ×4 (06:38→23:56)
[2017-04-07] MEDS: SODIUM CHLORIDE 0.9% FLUSH 10 ML FLUSH IV FLUSH SCH ×2 (09:00→20:07)
[2017-04-07] MEDS: DOCUSATE SODIUM 50 MG/SENNA 8.6 MG TAB PO SCH ×2 (09:28→20:07)
[2017-04-07] MEDS: PANTOPRAZOLE SOD 40 MG DELAYED RELEASE TAB PO SCH (09:28)
[2017-04-07] MEDS: LORazepam 0.5 MG TAB PO SCH ×2 (09:29→20:07)
--- NOTE | 2017-04-07 10:15 | MB ---
cc: HELEN MEYER MD DATE OF CONSULTATION: 04/07/2017 REASON FOR CONSULTATION: Abdominal pain, history of diverticulitis, diverticular abscess. HISTORY OF PRESENT ILLNESS The patient is 56-year-old female presents to the emergency department with acute onset of diverticular abscess and abdominal pain. She states the pain has been going on since approximately February for which she was admitted for diverticulitis, placed on p.o. IV antibiotics with some improvement. However she notes that continued and a course of both IV and p.o. antibiotics. She did develop a worsening acute onset of abdominal pain within the last couple days that was 12/14 currently is on for out 10 after IV pain medication. She denied any fevers or chills. She does have occasional nausea and vomiting. She has pain primarily located in the left pelvis and umbilical region. She came to [facility] further workup including CT scan showing diverticular abscess to 1/2 cm. Therefore she was transferred to [place] for further intervention in management. She reports completing p.o. antibiotics yesterday. She has had a history of colonoscopy in 2014 which she reports was negative. PAST MEDICAL HISTORY Diverticulitis, hypothyroidism, reflux, hiatal hernia thyroid disease. PAST SURGICAL HISTORY Hernia repair, hysterectomy, right hip surgery SOCIAL HISTORY Denies EtOH occasional smoking. Occasional THC. ALLERGIES NO KNOWN DRUG ALLERGIES. MEDICATIONS See EMR. FAMILY HISTORY Further diabetes. Both parents obese. Father with hypertension. REVIEW OF SYSTEMS GENERAL: Denies headaches or chills. HEAD, EYES, EARS, NOSE, AND THROAT: Denies eye pain, ear pain. NECK: Denies swelling or pain. LUNGS: Denies cough or wheeze. HEART: Denies palpitation or chest pain. ABDOMEN: Complained of nausea, occasional vomiting and abdominal pain. Denies diarrhea. GENITOURINARY: Denies dysuria, hematuria. MUSCULOSKELETAL: Denies arthralgia, myalgias. SKIN: Denies rash or lesion. NEUROLOGIC: Denies numbness or weakness. PSYCHIATRIC: Complains of anxiety. ENDOCRINE: Denies polyuria, polydipsia. PHYSICAL EXAMINATION IN GENERAL: The patient in no acute distress. VITAL SIGNS: Temperature 97.9, pulse 98, respirations 60, blood pressure 123/75, saturation 97% on room air. HEAD, EYES, EARS, NOSE, AND THROAT: Pupils equal round reactive. Normal some gait traumatic. NECK: Supple. Trachea midline. LUNGS: Clear to auscultation bilateral expansion. HEART: S1-S2 regular. ABDOMEN: Soft, positives palpation in the infraumbilical area left pelvic area and no rebound. No guarding. EXTREMITIES: Warm, well-perfused. NEUROLOGIC: GCS of 15, 5/5 motor all extremities. LABORATORY AND DIAGNOSTIC DATA WBC 11.5. He will 30.8, hematocrit 43.7, platelets 296. Sodium 136, potassium 3.3, BUN of 14, creatinine 0.7, lactate 0.9, AST 13, ALT 20, albumin 40, INR one. CT scanner is unavailable at this time A chest x-ray shows no abnormality. At the review of previous CT scan done in mid February showing diverticulitis without abscess. Reports a CT scan done in the [facility] showing a 3 1/2 cm abscess. Official reports and images are pending. ASSESSMENT The patient is 56-year-old female acute recurrent divert due to light is now with abscess. PLAN A full clinical radiologic laboratory workup the patient above-named issues including acute diverticulitis at this point I recommend interventional consultation for a possible abscess drainage and evaluation. Further I recommend n.p.o. IV fluids, pain control, IV antibiotics will continue to follow with abdominal exams discussed with the patient regarding her somewhat longer chronic nature and not responsive to antibiotics. Therefore may warrant surgical intervention this hospital stay. I also discussed possible colostomy, but did discuss we will initially attempt nonoperative management. She does have a colonoscopy scheduled in June. I have discussed with her that would be prudent but may change based on clinical status. MD BETH Mcleod/sonya /8:07 AM /8:32 AM
[2017-04-07 10:27] LABS: BLOOD, URINE NEG (NEG); GLUCOSE,URINE NEG (NEG); KETONE, URINE NEG (NEG); NITRITE,URINE NEG (NEG)
[2017-04-07 10:43] LABS: COMMENT (UR) CULT NOT INDICATED; CULTURE IF INDICATED CULT NOT INDICATED; METHOD OF COLLECTION CLEAN CATCH; SQUAMOUS EPITHELIAL CELL URINE 0-5 /hpf (0-5); URINE COLOR YELLOW (YELLW/STRAW); WBC, URINE 0-2 /hpf (0-5)
[2017-04-07] MEDS ORDERED: DIATRIZOATE MEGLUM/DIATRIZOATE SOD 9 ML CUP PO ONE (11:30)
--- NOTE | 2017-04-07 15:00 | HHI.HP ---
[facility]PI Service [facility] Primary [facility] Physician Non-Staff Admission Diagnosis acute diverticulitis w abscess Diagnoses: (1) Diverticulitis (2) Leukocytosis (3) Abscess of sigmoid colon due to diverticulitis Chief Complaint: Abdominal pain, nausea and vomiting Travel History International Travel<30 Days: No Contact w/Intl Traveler <30 Da: No Traveled to Known Affected Are: No Sepsis Criteria SIRS Criteria (2 or more): Heart rate over 90, WBC > 93728, < 4000 or > 10% bands History of Present Illness Written by Dawn Bui, acting as scribe for Dr. Martinez on 04/07/17 at 14:37. Mrs. James is a 56-year-old female patient with a known medical history of diverticulitis, hypothyroidism and GERD who presented to the [facility] ED with continued abdominal pain. Patient states she was admitted to the hospital in February for diverticulitis and placed on IV antibiotics during hospitalization and was discharged on PO antibiotics, admitting to finishing the course yesterday. Patient states that some improvement was seen with intermittent continued abdominal pain but noticed the past several days she has developed a worsening pain. The pain "felt like she was giving ", rated a 10/10 on pain scale, located in her lower abdomen. Denies any recent fever, chills. Does admit to nausea and vomiting, has been unable to keep anything down this morning. Denies any recent dysuria. Admits to a few bouts of diarrhea. Denies any hematochezia. A CT was performed showing diverticular abscess. Last colonoscopy was in 2014 which was reportedly negative. Review of Systems Constitutional: DENIES: Fever, Chills Eyes: DENIES: Diplopia Ears, nose, mouth, throat: DENIES: Vertigo Respiratory: DENIES: Cough, Shortness of breath Cardiovascular: DENIES: Chest pain Gastrointestinal: COMPLAINS OF: Abdominal pain, Diarrhea, Nausea, Vomiting, DENIES: Black stools, Bloody stools, Constipation Musculoskeletal: DENIES: Joint pain Hematologic/lymphatic: DENIES: Bruising Psychiatric: DENIES: Anxiety Except as stated in HPI: all other systems reviewed are Neg Past Family Social History Past Medical History Hyperlipidemia Hypothyroidism asthma Gastroesophageal reflux Past Surgical History Hysterectomy Right hip surgery Hiatal hernia surgery Reported Medications Active Metronidazole 500 Mg Tab 500 Mg PO TID Cipro (Ciprofloxacin HCl) 500 Mg Tab 500 Mg PO BID Reported Lorazepam 0.5 Mg Tab 0.5 Mg PO BID Levothyroxine (Levothyroxine Sodium) 125 Mcg Tab 125 Mcg PO DAILY Diclofenac Sodium DR (Diclofenac Sodium) 50 Mg Tabdr 50 Mg PO BID Omeprazole 40 Mg Cap 40 Mg PO DAILY Allergies: Coded Allergies: No Known Allergies (Verified Allergy, Unknown, 02/17/17) Active Ordered Medications Current Medications Medications (Trade) Dose Ordered Sig/Shilpi Route Start Time Stop Time Status Last Admin Piperacillin Sod/ Tazobactam Sod 100 ml @ 200 mls/hr Q6H IV 04/07/17 06:00 04/07/17 12:03 Sodium Chloride 1,000 ml @ 100 mls/hr Q10H IV 04/07/17 00:57 04/07/17 10:57 (NS Flush) 2 ml UNSCH PRN IV FLUSH 04/07/17 01:00 (NS Flush) 2 ml BID IV FLUSH 04/07/17 09:00 (Zofran Inj) 4 mg Q6H PRN IVP 04/07/17 01:00 04/07/17 09:28 (Tylenol) 650 mg Q6H PRN PO 04/07/17 01:00 (Morphine Inj) 1 mg Q3H PRN IV PUSH 04/07/17 01:00 (Morphine Inj) 2 mg Q3H PRN IV PUSH 04/07/17 01:00 04/07/17 06:39 (Kelly-Colace) 1 tab BID PO 04/07/17 09:00 04/07/17 09:28 (Milk Of Magnesia Liq) 30 ml Q12H PRN PO 04/07/17 01:00 (Senokot) 17.2 mg Q12H PRN PO 04/07/17 01:00 (Dulcolax Supp) 10 mg DAILY PRN RECTAL 04/07/17 01:00 (Lactulose Liq) 30 ml DAILY PRN PO 04/07/17 01:00 (Synthroid) 125 mcg DAILY@0600 PO 04/07/17 06:00 04/07/17 06:38 (Ativan) 0.5 mg BID PO 04/07/17 09:00 04/07/17 09:29 (Protonix) 40 mg DAILY PO 04/07/17 09:00 04/07/17 09:28 Family History Reviewed is significant for mother with diabetes, father had intracranial hemorrhage Social History Patient does smoke intermittently. Approximately 2 cigarettes a day. Denies any alcohol use. She does smoke marijuana occasionally Physical Exam Vital Signs Vital Signs Date Time Temp Pulse Resp B/P (MAP) Pulse Ox O2 Delivery O2 Flow Rate FiO2 04/07/17 12:00 96.8 77 18 119/75 (90) 97 04/07/17 08:00 96.6 75 18 94/67 (76) 93 04/07/17 03:05 83 04/07/17 03:01 96.5 80 20 123/75 (91) 97 04/07/17 02:20 83 18 116/82 (93) 96 04/07/17 00:49 95 Room Air 04/07/17 00:46 16 04/06/17 23:21 98 18 133/92 (106) 95 Room Air 04/06/17 23:14 18 04/06/17 20:14 97.9 125 18 147/103 (118) 96 Physical Exam GENERAL: Well-developed, well-nourished, in no acute distress. alert and orientated HEENT: Head is normocephalic without any lesions or masses noted. Facial features are symmetric. Eyes: Pupils equal round reactive to light. Extraocular muscles are intact. Conjunctivae were clear. NECK: Supple. Trachea midline no deviation. No JVD, no bruits are appreciated CARDIAC: Regular rhythm, regular rate. S1/S2 are heard. No murmurs gallops or rubs. LUNGS: Clear to auscultation bilaterally. No wheeze, rhonchi or rales. No use of accessory muscles on inspiration or expiration. ABDOMEN: Soft, mild generalized abdominal tenderness. Nondistended. Bowel sounds heard in all 4 quadrants. No organomegaly or masses. Pain to palpation around umbilical area. EXTREMITIES: No edema, pulses are equal bilaterally. No cyanosis or clubbing NEUROLOGY: Mood and affect appear appropriate. Cranial nerves II through XII grossly intact. Muscle strength 5/5 in upper and lower extremities bilaterally. Deep tendon reflexes are 2+ in upper and lower extremities bilaterally. Laboratory Laboratory Tests Test 04/07/17 00:15 04/07/17 10:15 White Blood Count 11.5 Red Blood Count 4.94 Hemoglobin 13.8 Hematocrit 43.7 Mean Corpuscular Volume 88.5 Mean Corpuscular Hemoglobin 28.0 Mean Corpuscular Hemoglobin Concent 31.7 Red Cell Distribution Width 14.2 Platelet Count 296 Mean Platelet Volume 8.8 Neutrophils (%) (Auto) 75.1 Lymphocytes (%) (Auto) 16.6 Monocytes (%) (Auto) 6.4 Eosinophils (%) (Auto) 1.2 Basophils (%) (Auto) 0.7 Neutrophils # (Auto) 8.7 Lymphocytes # (Auto) 1.9 Monocytes # (Auto) 0.7 Eosinophils # (Auto) 0.1 Basophils # (Auto) 0.1 CBC Comment DIFF FINAL Differential Comment Prothrombin Time 10.8 Prothromb Time International Ratio 1.0 Activated Partial Thromboplast Time 27.1 Blood Urea Nitrogen 14 Creatinine 0.71 Random Glucose 113 Total Protein 8.3 Albumin 3.0 Calcium Level 9.0 Alkaline Phosphatase 87 Aspartate Amino Transf (AST/SGOT) 13 Alanine Aminotransferase (ALT/SGPT) 20 Total Bilirubin 0.3 Sodium Level 136 Potassium Level 3.3 Chloride Level 104 Carbon Dioxide Level 24.3 Anion Gap 8 Estimat Glomerular Filtration Rate 85 Lactic Acid Level 0.9 Lipase 126 Urine Collection Type CLEAN CATCH Urine Color YELLOW Urine Turbidity CLEAR Urine pH 5.0 Urine Specific [place] 1.026 Urine Protein NEG Urine Glucose (UA) NEG Urine Ketones NEG Urine Occult Blood NEG Urine Nitrite NEG Urine Bilirubin NEG Urine Leukocyte Esterase NEG Urine WBC 0-2 Urine Squamous Epithelial Cells 0-5 Microscopic Urinalysis Comment CULT NOT INDICATED Urine Collection Time 10:15 Date/Time Source Procedure Growth Status 04/07/17 00:20 Blood Peripheral Aerobic Blood Culture Pending Received 04/07/17 00:20 Blood Peripheral Anaerobic Blood Culture Pending Received Result Diagram: 04/07/17 0015 04/07/17 0015 Imaging Last Impressions Chest X-Ray 04/06/17 0220 Signed Impressions: Service Date/Time: Friday, April 07, 2017 00:11 - CONCLUSION: No acute abnormality is identified. MD Gordo Tobias VTE Risk Assessment Caprini VTE Risk Assessment: No/Low Risk (score <= 1) Caprini Risk Assessment Model Point Value = 1 Point Value = 2 Point Value = 3 Point Value = 5 Age 41-60 Minor surgery BMI > 25 kg/m2 Swollen legs Varicose veins or History of unexplained or recurrent spontaneous Oral contraceptives or hormone replacement Sepsis (< 1 month) Serious lung disease, including pneumonia (< 1 month) Abnormal pulmonary function Acute myocardial infarction Congestive heart failure (< 1 month) History of inflammatory bowel disease Medical patient at bed rest Age 61-74 Arthroscopic surgery Major open surgery (> 45 min) Laparoscopic surgery (> 45 min) Malignancy Confined to bed (> 72 hours) Immobilizing plaster cast Central venous access Age >= 75 History of VTE Family history of VTE Factor V Leiden Prothrombin [id number] Lupus anticoagulant Anticardiolipin antibodies Elevated serum homocysteine Heparin-induced thrombocytopenia Other congenital or acquired thrombophilia Stroke (< 1 month) Elective arthroplasty Hip, pelvis, or leg fracture Acute spinal cord injury (< 1 month) Prophylaxis Regimen Total Risk Factor Score Risk Level Prophylaxis Regimen 0-1 Low Early ambulation 2 Moderate Order ONE of the following: *Sequential Compression Device (SCD) *Heparin 5000 units SQ BID 3-4 Higher Order ONE of the following medications: *Heparin 5000 units SQ TID *Enoxaparin/Lovenox 40 mg SQ daily (WT < 150 kg, CrCl > 30 mL/min) *Enoxaparin/Lovenox 30 mg SQ daily (WT < 150 kg, CrCl > 10-29 mL/min) *Enoxaparin/Lovenox 30 mg SQ BID (WT < 150 kg, CrCl > 30 mL/min) AND/OR *Sequential Compression Device (SCD) 5 or more Highest Order ONE of the following medications: *Heparin 5000 units SQ TID (Preferred with Epidurals) *Enoxaparin/Lovenox 40 mg SQ daily (WT < 150 kg, CrCl > 30 mL/min) *Enoxaparin/Lovenox 30 mg SQ daily (WT < 150 kg, CrCl > 10-29 mL/min) *Enoxaparin/Lovenox 30 mg SQ BID (WT < 150 kg, CrCl > 30 mL/min) AND *Sequential Compression Device (SCD) Assessment and Plan Problem List: (1) Abscess of sigmoid colon due to diverticulitis ICD Code: K57.20 - Diverticulitis of large intestine with perforation and abscess without bleeding Status: Acute Plan: CT was performed at [facility] reportedly showing a 3.5 cm abscess. Awaiting official reports, unavailable in EMR. CXR reviewed showing no acute abnormality. Blood cultures drawn and pending. Follow. UA unremarkable. Lactic acid 0.9. Control pain, Morphine IV available PRN per pain scale. Bowel regimen, hold for diarrhea. Continue Protonix. Control nausea, Zofran available PRN. Started on Zosyn IV, continue. Consult placed to general surgery, has seen patient who has consulted radiology to possibly perform an I & D of the found abscess although surgeon requesting further imaging of CT. Ordered and awaiting results. Continue to follow. Until then, supportive care. (2) Leukocytosis ICD Code: D72.829 - Elevated white blood cell count, unspecified Plan: Mild. WBC 11.5 on presentation. Suspect secondary to above. Monitor for fevers. Follow CBC. Continue IV antibiotics. Continue IVF. (3) Hypokalemia ICD Code: E87.6 - Hypokalemia Plan: Suspect secondary to vomiting and diarrhea. K 3.3 on presentation. Replace as needed. Follow BMP. DVT Prophylaxis: SCDs. (4) Hypothyroidism ICD Code: E03.9 - Hypothyroidism, unspecified Plan: Continue home Levothyroxine. Assessment and Plan This note was transcribed by leander [[email or web address]]. I, Dr. Subha Martinez personally performed the history, physical exam, and medical decision making; and confirmed the accuracy of the information in the transcribed note. Authenticated by Dr. Subha Martinez on 04/07/17 at 15:03. Dawn Bui Apr 07, 2017 15:00 Subha Martinez MD Apr 07, 2017 16:06
[2017-04-07] MEDS ORDERED: POTASSIUM CHLOR 20 MEQ PREMIX 100 ML IV ONE (15:15)
[2017-04-07] MEDS ORDERED: IOHEXOL 350 MG/ML 10 ML VIAL (for RAD DIAG) IVCONTRAST ONE (16:48)
--- NOTE | 2017-04-07 17:04 | RADRPT ---
EXAM DATE/TIME: 04/07/2017 16:27 [facility] COMPARISON: CT ABDOMEN & PELVIS W CONTRAST, February 17, 2017, 10:08. INDICATIONS : Bilateral lower quadrant pain; evaluate for abscess. IV CONTRAST: 90 cc Omnipaque 350 (iohexol) IV ORAL CONTRAST: Partial prescribed oral contrast ingested. RADIATION DOSE: 21.03 CTDIvol (mGy) MEDICAL HISTORY : Diverticulitis. Hernia, hiatal. Gastroesophageal reflux disease. SURGICAL HISTORY : Hernia repair, partial hysterectomy, right pelvis fracture repair. ENCOUNTER: Initial ACUITY: 1 week PAIN SCALE: 6/10 LOCATION: Bilateral lower quadrant TECHNIQUE: Volumetric scanning of the abdomen and pelvis was performed. Using automated exposure control and ad justment of the mA and/or kV according to patient size, radiation dose was kept as low as reasonably achievable to obtain optimal diagnostic quality images. DICOM format image data is available electro nically for review and comparison. FINDINGS: Chronic diverticular disease and moderate severity acute diverticulitis seen of the sigmoid colon. Th ere is a very irregular fluid collection of the mid sigmoid colon measuring approximately 3.2 x 4.6 x 2.7 cm in size. It is contiguous with the roof of the urinary bladder and a fistula track may be dev eloping. However, I don't see any air in the urinary bladder to fully substantiate this. Umbilical hernia measuring approximately 2.5 cm across again noted. There is a short loop of small corbin wel contains in the hernia sac but no obstruction or inflammatory changes. Liver, spleen, pancreas, adrenal glands and kidneys are all within normal limits. Moderate size hiatal hernia noted, not significantly changed. Trace left base atelectasis noted. CONCLUSION: 1. Irregular diverticular abscess in the deep pelvic cavity and contiguous with the roof of the urina ry bladder. A safe drainage path is not clearly visualized. Interventional radiology consultation is pending. 2. Umbilical hernia containing fat and a short segment of small bowel. No obstruction or induration. 3. Small to moderate hiatal hernia again noted. 4. Trace left base atelectasis. Jose Tavares MD on April 07, 2017 at 16:54 Board Certified Radiologist. This report was verified electronically.
--- NOTE | 2017-04-07 17:10 | PD.RAD ---
Radiology Note IR consulted regarding drainage of diverticular abscess. This collection is too small for drainage at this time. Brenden Lopez MD Apr 07, 2017 17:10
[2017-04-08] VITALS (8 sets, daily range): BP systolic 118–141; BP diastolic 67–94; PULSE 85–94; RESP 16–20; TEMP 97.6–98.6; O2SAT 95–99
[2017-04-08] MEDS: PIPERACIL-TAZO 4.5 GM PREMIX 100 ML IV SCH ×3 (05:16→16:53)
[2017-04-08] MEDS: LEVOTHYROXINE SODIUM 125 MCG TAB PO SCH (05:17)
[2017-04-08 07:23] LABS: AUTOMATED NEUTROPHIL # 8.6 TH/MM3 (1.8-7.7); BASOPHIL % 0.2 % (0.0-2.0); EOSINOPHIL # 0.2 TH/MM3 (0-0.4); EOSINOPHIL % 1.4 % (0.0-4.0); HEMATOCRIT 38.5 % (35.0-46.0); HEMO FLAGS DIFF FINAL; LYMPH % 12.9 % (9.0-44.0); LYMPHOCYTE # 1.4 TH/MM3 (1.0-4.8); MEAN CELL VOLUME 89.4 FL (80.0-100.0); MEAN CORPUSCULAR HEMOGLOBIN 28.4 PG (27.0-34.0); MEAN CORPUSCULAR HGB CONC 31.8 % (32.0-36.0); MONO % 6.5 % (0.0-8.0); PLATELET COUNT 278 TH/MM3 (150-450); WHITE BLOOD COUNT 10.9 TH/MM3 (4.0-11.0)
[2017-04-08 07:25] LABS: CHLORIDE 105 MEQ/L (98-107); POTASSIUM 3.5 MEQ/L (3.5-5.1); SODIUM (NA) 140 MEQ/L (136-145)
[2017-04-08 07:30] LABS: ANION GAP 8 MEQ/L (5-15); BICARBONATE 26.8 MEQ/L (21.0-32.0)
[2017-04-08 07:31] LABS: BLOOD UREA NITROGEN 4 MG/DL (7-18)
[2017-04-08 07:33] LABS: ALT (GPT) 15 U/L (10-53); AST (GOT) 11 U/L (15-37); GLOMERULAR FILTRATION RATE 110 ML/MIN (>89)
[2017-04-08 07:35] LABS: TOTAL BILIRUBIN ADULT 0.6 MG/DL (0.2-1.0)
[2017-04-08 07:36] LABS: ALKALINE PHOSPHATASE 69 U/L (45-117)
--- NOTE | 2017-04-08 07:38 | HHI.PR ---
Subjective Remarks Seen in follow-up for intra-abdominal abscess. No events overnight. Patient without complaints today. Pain is minimal. No fevers. She findings discussed with patient Objective Vitals Vital Signs Date Time Temp Pulse Resp B/P (MAP) Pulse Ox O2 Delivery O2 Flow Rate FiO2 04/08/17 04:00 98.6 87 20 129/70 (89) 97 04/08/17 00:30 98.3 85 20 118/67 (84) 95 04/08/17 00:00 98.3 85 20 118/67 (84) 95 04/07/17 20:00 97.6 84 20 132/87 (102) 97 04/07/17 20:00 83 04/07/17 15:58 98.0 81 18 133/78 (96) 96 04/07/17 12:00 96.8 77 18 119/75 (90) 97 04/07/17 08:00 96.6 75 18 94/67 (76) 93 I/O 04/07/17 04/07/17 04/07/17 04/08/17 04/08/17 04/08/17 07:00 15:00 23:00 07:00 15:00 23:00 Intake Total 1050 ml 100 ml 1014 ml Output Total 400 ml Balance 1050 ml -400 ml 100 ml 1014 ml Intake Oral 0 ml IV Total 1050 ml 100 ml 1014 ml Output Emesis 400 ml # Voids 0 3 1 5 # Bowel Movements 0 Result Diagram: 04/08/17 0628 04/08/17 0628 Imaging Last Impressions Abdomen/Pelvis CT 04/07/17 0000 Signed Impressions: Service Date/Time: Friday, April 07, 2017 16:27 - CONCLUSION: 1. Irregular diverticular abscess in the deep pelvic cavity and contiguous with the roof of the urinary bladder. A safe drainage path is not clearly visualized. Interventional radiology consultation is pending. 2. Umbilical hernia containing fat and a short segment of small bowel. No obstruction or induration. 3. Small to moderate hiatal hernia again noted. 4. Trace left base atelectasis. Jose Tavares MD Chest X-Ray 04/06/17 0881 Signed Impressions: Service Date/Time: Friday, April 07, 2017 00:11 - CONCLUSION: No acute abnormality is identified. Jose Martinez MD Objective Remarks GENERAL: This is a well-nourished, well-developed patient, in no apparent distress. CARDIOVASCULAR: Regular rate and rhythm without murmurs, gallops, or rubs. RESPIRATORY: Clear to auscultation. Breath sounds equal bilaterally. No wheezes , rales, or rhonchi. GASTROINTESTINAL: Abdomen soft, non-tender, nondistended. Normal active bowel sounds MUSCULOSKELETAL: Extremities without clubbing, cyanosis, or edema. NEURO: Alert & Oriented x4 to person, place, time, situation. Moves all ext x4 A/P Problem List: (1) Abscess of sigmoid colon due to diverticulitis ICD Code: K57.20 - Diverticulitis of large intestine with perforation and abscess without bleeding Status: Acute Plan: Repeat CT abdomen pelvis does show of intra-abdominal abscess Continue IV Zosyn, IV morphine for pain as needed Protonix General surgery consult appreciated, collection too small for drainage per IR (2) Leukocytosis ICD Code: D72.829 - Elevated white blood cell count, unspecified Plan: Resolved, continue to follow clinically (3) Hypokalemia ICD Code: E87.6 - Hypokalemia Plan: Resolved (4) Hypothyroidism ICD Code: E03.9 - Hypothyroidism, unspecified Plan: Continue home Levothyroxine. Assessment and Plan Activity ad jaymie., telemetry Subha Ugarte MD Apr 08, 2017 07:38
--- NOTE | 2017-04-08 07:56 | HHI.PR ---
cc: Shaw Mae MD Subjective Subjective Notes no fevers, pain better, ir unable to drain abscess Objective Vitals/I&O Vital Signs Date Time Temp Pulse Resp B/P (MAP) Pulse Ox O2 Delivery O2 Flow Rate FiO2 04/08/17 04:00 98.6 87 20 129/70 (89) 97 04/07/17 00:49 Room Air Labs Laboratory Tests Test 04/07/17 10:15 04/08/17 06:28 Urine Collection Type CLEAN CATCH Urine Color YELLOW Urine Turbidity CLEAR Urine pH 5.0 Urine Specific [place] 1.026 Urine Protein NEG Urine Glucose (UA) NEG Urine Ketones NEG Urine Occult Blood NEG Urine Nitrite NEG Urine Bilirubin NEG Urine Leukocyte Esterase NEG Urine WBC 0-2 Urine Squamous Epithelial Cells 0-5 Microscopic Urinalysis Comment CULT NOT INDICATED Urine Collection Time 10:15 White Blood Count 10.9 Red Blood Count 4.30 Hemoglobin 12.2 Hematocrit 38.5 Mean Corpuscular Volume 89.4 Mean Corpuscular Hemoglobin 28.4 Mean Corpuscular Hemoglobin Concent 31.8 Red Cell Distribution Width 14.0 Platelet Count 278 Mean Platelet Volume 9.1 Neutrophils (%) (Auto) 79.0 Lymphocytes (%) (Auto) 12.9 Monocytes (%) (Auto) 6.5 Eosinophils (%) (Auto) 1.4 Basophils (%) (Auto) 0.2 Neutrophils # (Auto) 8.6 Lymphocytes # (Auto) 1.4 Monocytes # (Auto) 0.7 Eosinophils # (Auto) 0.2 Basophils # (Auto) 0.0 CBC Comment DIFF FINAL Differential Comment Blood Urea Nitrogen 4 Creatinine 0.57 Random Glucose 84 Total Protein 7.1 Albumin 2.5 Calcium Level 8.4 Alkaline Phosphatase 69 Aspartate Amino Transf (AST/SGOT) 11 Alanine Aminotransferase (ALT/SGPT) 15 Total Bilirubin 0.6 Sodium Level 140 Potassium Level 3.5 Chloride Level 105 Carbon Dioxide Level 26.8 Anion Gap 8 Estimat Glomerular Filtration Rate 110 Date/Time Source Procedure Growth Status 04/07/17 00:20 Blood Peripheral Aerobic Blood Culture Pending Received 04/07/17 00:20 Blood Peripheral Anaerobic Blood Culture Pending Received Abdomen: Other (soft mild ttp, no rebound, no guarding) A/P Assessment and Plan recurrent diverticulitis, abscess PLAN ok for clear liq diet abx pain control IR unable to drain abscess [facility] Shaw Mae MD Apr 08, 2017 07:56
[2017-04-08] MEDS: SODIUM CHLORIDE 0.9% FLUSH 10 ML FLUSH IV FLUSH SCH ×2 (09:00→21:19)
[2017-04-08] MEDS: DOCUSATE SODIUM 50 MG/SENNA 8.6 MG TAB PO SCH ×2 (09:00→21:19)
[2017-04-08] MEDS: LORazepam 0.5 MG TAB PO SCH ×2 (09:11→21:19)
[2017-04-08] MEDS: PANTOPRAZOLE SOD 40 MG DELAYED RELEASE TAB PO SCH (09:11)
--- NOTE | 2017-04-08 13:26 | RADRPT ---
EXAM DATE/TIME: 04/07/2017 00:00 [facility] COMPARISON: CT ABDOMEN & PELVIS W CONTRAST, April 07, 2017, 16:27. CONSULT: Interventional radiology was counseled regarding possible drainage of a suspected pelvic diverticular abscess. Review of recent CT exam demonstrates a developing phlegmonous collection in the very deep central pelvis caudal to the sigmoid diverticulitis. Abscess is not mature and there is insufficient focal volume for drainage catheter placement. Recommend continued antibiotic treatment with short int erval CT exam to assess for interval change. If the abscess has grown or matured further, percutaneou s drainage may be feasible. Brenden Lopez MD on April 08, 2017 at 13:20 Board Certified Radiologist. This report was verified electronically.
[2017-04-08] MEDS: SODIUM CHLOR 0.9% 1000 ML INJ 1,000 ML IV SCH (16:03)
[2017-04-08] MEDS: MORPHINE SULFATE 4 MG/ML INJ IV PUSH PRN (21:31)
[2017-04-09 01:27] VITALS: BP 130/73; PULSE 84; RESP 20; TEMP 97.8; O2SAT 95
[2017-04-09] MEDS: PIPERACIL-TAZO 4.5 GM PREMIX 100 ML IV SCH ×5 (01:59→23:36)
[2017-04-09] MEDS: SODIUM CHLOR 0.9% 1000 ML INJ 1,000 ML IV SCH ×3 (01:59→23:36)
[2017-04-09] MEDS: LEVOTHYROXINE SODIUM 125 MCG TAB PO SCH (05:45)
--- NOTE | 2017-04-09 07:28 | HHI.PR ---
cc: Shaw Mae MD Subjective Subjective Notes no fevers, increased pain overnight, +bm Objective Vitals/I&O Vital Signs Date Time Temp Pulse Resp B/P (MAP) Pulse Ox O2 Delivery O2 Flow Rate FiO2 04/09/17 01:27 97.8 84 20 130/73 (92) 95 04/07/17 00:49 Room Air Labs Date/Time Source Procedure Growth Status 04/07/17 00:20 Blood Peripheral Aerobic Blood Culture - Preliminary NO GROWTH IN 1 DAY Resulted 04/07/17 00:20 Blood Peripheral Anaerobic Blood Culture - Preliminary NO GROWTH IN 1 DAY Resulted Abdomen: Other (soft +ttp pelvic area, no rebound) A/P Assessment and Plan recurrent diverticulitis, abscess, IR unable to drain abscess PLAN ok for clear liq diet, will advance to full liquid abx pain control consider surgical intervention vs reCT in a few days Shaw Mae MD Apr 09, 2017 07:28
[2017-04-09 08:00] VITALS: BP 142/89; PULSE 78; RESP 16; TEMP 97.6; O2SAT 94
[2017-04-09 08:43] LABS: AUTOMATED NEUTROPHIL # 7.9 TH/MM3 (1.8-7.7); BASOPHIL # 0.1 TH/MM3 (0-0.2); BASOPHIL % 0.6 % (0.0-2.0); EOSINOPHIL # 0.2 TH/MM3 (0-0.4); EOSINOPHIL % 1.5 % (0.0-4.0); HEMATOCRIT 37.8 % (35.0-46.0); HEMO FLAGS DIFF FINAL; LYMPHOCYTE # 1.3 TH/MM3 (1.0-4.8); MEAN CELL VOLUME 89.2 FL (80.0-100.0); MEAN CORPUSCULAR HEMOGLOBIN 29.6 PG (27.0-34.0); MEAN CORPUSCULAR HGB CONC 33.2 % (32.0-36.0); MONO % 6.5 % (0.0-8.0); NEUT % 78.4 % (16.0-70.0); PLATELET COUNT 266 TH/MM3 (150-450); RED BLOOD COUNT 4.24 MIL/MM3 (4.00-5.30); WHITE BLOOD COUNT 10.1 TH/MM3 (4.0-11.0)
[2017-04-09] MEDS: LORazepam 0.5 MG TAB PO SCH ×2 (09:15→20:38)
[2017-04-09] MEDS: DOCUSATE SODIUM 50 MG/SENNA 8.6 MG TAB PO SCH ×2 (09:15→22:14)
[2017-04-09] MEDS: SODIUM CHLORIDE 0.9% FLUSH 10 ML FLUSH IV FLUSH SCH ×2 (09:15→20:38)
[2017-04-09] MEDS: PANTOPRAZOLE SOD 40 MG DELAYED RELEASE TAB PO SCH (09:15)
--- NOTE | 2017-04-09 11:22 | HHI.PR ---
Subjective Remarks Follow-up for repeat current diverticulitis and diverticular abscess Patient very emotional and stated that she is a little better but her pain is severe with different position. Patient very frustrated that she has been in and out of hospital since February almost every 2 weeks with no resolution of her symptoms. Patient stated that she really wants this to resolve during this admission. Deny any nausea vomiting. Remains afebrile. Objective Vitals Vital Signs Date Time Temp Pulse Resp B/P (MAP) Pulse Ox O2 Delivery O2 Flow Rate FiO2 04/09/17 01:27 97.8 84 20 130/73 (92) 95 04/08/17 20:00 97.6 94 20 121/76 (91) 96 04/08/17 14:00 98.2 94 16 141/94 (110) 99 04/08/17 12:00 98.2 93 16 140/75 (96) 96 I/O 04/08/17 04/08/17 04/08/17 04/09/17 04/09/17 04/09/17 07:00 15:00 23:00 07:00 15:00 23:00 Intake Total 1014 ml 200 ml Balance 1014 ml 200 ml Intake Oral 0 ml IV Total 1014 ml 200 ml # Voids 5 Result Diagram: 04/09/1725 04/08/17 0628 Imaging Objective Remarks GENERAL: In no acute distress CARDIOVASCULAR: Regular rate and rhythm without murmurs, gallops, or rubs. RESPIRATORY: Breath sounds equal bilaterally. No accessory muscle use. GASTROINTESTINAL: Abdomen soft, nondistended. + TTP lower abdomen. Negative for any peritoneal signs. MUSCULOSKELETAL: No cyanosis, or edema. BACK: Nontender without obvious deformity. No CVA tenderness. Medications and IVs Current Medications Morphine Sulfate (Morphine Inj) 3 mg ONCE ONCE IV PUSH Last administered on 00:41; Start 04/07/17 at 00:00; Stop 04/07/17 at 00:01; Status DC Ondansetron HCl (Zofran Inj) 4 mg ONCE ONCE IVP Last administered on 00:41; Start 04/07/17 at 00:00; Stop 04/07/17 at 00:01; Status DC Sodium Chloride 1,000 ml @ 125 mls/hr Q8H IV Last administered on 04/07/17 00 :40; Start 04/06/17 at 23:54; Stop 04/07/17 at 01:10; Status DC Sodium Chloride (NS Flush) 2 ml UNSCH PRN IV FLUSH FLUSH AFTER USING IV ACCESS ; Start 04/07/17 at 00:00; Stop 04/07/17 at 01:07; Status DC Piperacillin Sod/ Tazobactam Sod 50 ml @ 100 mls/hr ONCE ONCE IV Last administered on 04/07/17 00:40; Start 04/07/17 at 00:00; Stop 04/07/17 at 00:29 ; Status DC Piperacillin Sod/ Tazobactam Sod 100 ml @ 200 mls/hr Q6H IV Last administered on 04/09/17 05:44; Start 04/07/17 at 06:00 Sodium Chloride 1,000 ml @ 100 mls/hr Q10H IV Last administered on 04/09/17 01:59; Start 04/07/17 at 00:57 Sodium Chloride (NS Flush) 2 ml UNSCH PRN IV FLUSH FLUSH AFTER USING IV ACCESS ; Start 04/07/17 at 01:00 Sodium Chloride (NS Flush) 2 ml BID IV FLUSH Last administered on 04/08/17 21: 19; Start 04/07/17 at 09:00 Ondansetron HCl (Zofran Inj) 4 mg Q6H PRN IVP NAUSEA OR VOMITING Last administered on 04/07/17 18:27; Start 04/07/17 at 01:00 Acetaminophen (Tylenol) 650 mg Q6H PRN PO FEVER/PAIN SCALE 1 TO 2 Last administered on 04/08/17 17:34; Start 04/07/17 at 01:00 Morphine Sulfate (Morphine Inj) 1 mg Q3H PRN IV PUSH Pain 3-5; Start 04/07/17 at 01:00 Morphine Sulfate (Morphine Inj) 2 mg Q3H PRN IV PUSH Pain 6-10 Last administered on 04/08/17 21:31; Start 04/07/17 at 01:00 Senna/Docusate Sodium (Kelly-Colace) 1 tab BID PO Last administered on 09:15; Start 04/07/17 at 09:00 Magnesium Hydroxide (Milk Of Magnesia Liq) 30 ml Q12H PRN PO Mild constipation ; Start 04/07/17 at 01:00 Sennosides (Senokot) 17.2 mg Q12H PRN PO Moderate constipation; Start 04/07/17 at 01:00 Bisacodyl (Dulcolax Supp) 10 mg DAILY PRN RECTAL SEVERE CONSITIPATION; Start 04/07/17 at 01:00 Lactulose (Lactulose Liq) 30 ml DAILY PRN PO SEVERE CONSITIPATION; Start at 01:00 Levothyroxine Sodium (Synthroid) 125 mcg DAILY@0600 PO Last administered on 05:45; Start 04/07/17 at 06:00 Lorazepam (Ativan) 0.5 mg BID PO Last administered on 04/09/17 09:15; Start 04/07/17 at 09:00 Pantoprazole Sodium (Protonix) 40 mg DAILY PO Last administered on 04/09/17 09 :15; Start 04/07/17 at 09:00 Diatrizoate Meglum/ Diatrizoate Sod ( Gastroview Liq) 18 ml ONCE ONCE PO Last administered on 04/07/17 12:02; Start 04/07/17 at 11:30; Stop 04/07/17 at 11:31; Status DC Potassium Chloride 100 ml @ 50 mls/hr BOLUS ONCE IV Last administered on 04/07 16:00; Start 04/07/17 at 15:15; Stop 04/07/17 at 17:14; Status DC Iohexol (Omnipaque 350 Inj) 90 ml STK-MED ONCE IVCONTRAST Last administered on 04/07/17 16:48; Start 04/07/17 at 16:48; Stop 04/07/17 at 16:49; Status DC A/P Problem List: (1) Abscess of sigmoid colon due to diverticulitis ICD Code: K57.20 - Diverticulitis of large intestine with perforation and abscess without bleeding Status: Acute (2) Leukocytosis ICD Code: D72.829 - Elevated white blood cell count, unspecified (3) Hypokalemia ICD Code: E87.6 - Hypokalemia (4) Hypothyroidism ICD Code: E03.9 - Hypothyroidism, unspecified Assessment and Plan Abscess of sigmoid colon due to diverticulitis, recurrence -General surgeon following. -Currently on Zosyn. Continue with Zosyn. -Per general surgery will repeat CT scan of the abdomen and a couple days to determine if patient needs surgery. Hypokalemia -Replenish as needed. Hypothyroidism -Continue with Synthroid. Discharge Planning Patient will need a repeat CT scan in a couple days and possible surgery. Viviana Leon MD Apr 09, 2017 11:22
[2017-04-09 12:00] VITALS: BP 134/83; PULSE 91; RESP 16; TEMP 97.8; O2SAT 96
[2017-04-09] MEDS: MORPHINE SULFATE 4 MG/ML INJ IV PUSH PRN ×2 (13:02→22:15)
[2017-04-09 16:00] VITALS: BP 131/87; PULSE 85; RESP 16; TEMP 98.8; O2SAT 98
[2017-04-09 20:00] VITALS: BP 132/85; PULSE 90; RESP 20; TEMP 98.5; O2SAT 97
[2017-04-10] VITALS: BP 119/72; PULSE 78; RESP 20; TEMP 97.6; O2SAT 96
[2017-04-10 04:00] VITALS: BP 134/84; PULSE 80; RESP 22; TEMP 97.6; O2SAT 97
[2017-04-10] MEDS: LEVOTHYROXINE SODIUM 125 MCG TAB PO SCH (05:09)
[2017-04-10] MEDS: PIPERACIL-TAZO 4.5 GM PREMIX 100 ML IV SCH ×4 (05:09→23:56)
[2017-04-10 08:00] VITALS: BP 135/94; PULSE 76; RESP 16; TEMP 98; O2SAT 95
[2017-04-10] MEDS: PANTOPRAZOLE SOD 40 MG DELAYED RELEASE TAB PO SCH (08:31)
[2017-04-10] MEDS: DOCUSATE SODIUM 50 MG/SENNA 8.6 MG TAB PO SCH ×2 (08:31→20:32)
[2017-04-10] MEDS: SODIUM CHLOR 0.9% 1000 ML INJ 1,000 ML IV SCH ×2 (08:31→22:39)
[2017-04-10] MEDS: LORazepam 0.5 MG TAB PO SCH ×2 (08:31→20:32)
[2017-04-10] MEDS: SODIUM CHLORIDE 0.9% FLUSH 10 ML FLUSH IV FLUSH SCH ×2 (08:32→20:32)
--- NOTE | 2017-04-10 10:28 | HHI.PR ---
cc: Shaw Mae MD Subjective Subjective Notes Sitting on the side of the bed Emotional about being in the hospital Objective Vitals/I&O Vital Signs Date Time Temp Pulse Resp B/P (MAP) Pulse Ox O2 Delivery O2 Flow Rate FiO2 04/10/17 08:00 98.0 76 16 135/94 (108) 95 04/07/17 00:49 Room Air Labs Date/Time Source Procedure Growth Status 04/07/17 00:20 Blood Peripheral Aerobic Blood Culture - Preliminary NO GROWTH IN 2 DAYS Resulted 04/07/17 00:20 Blood Peripheral Anaerobic Blood Culture - Preliminary NO GROWTH IN 2 DAYS Resulted Cardiovascular: Regular Lungs: Clear Abdomen: Other (abdominal tenderness with palpation ) Extremities: No edema A/P Assessment and Plan 56 year old female with recurrent acute diverticulitis; failed outpatient treatment -Full liquids; NPO after MN -Obtain consent---diagnostic laparoscopy, laparoscopic washout; placement of drain for tomorrow -Labs in AM -OOB and mobilize -IS -[facility] consult for lower abdominal pain Attending Statement patient seen at bedside persistent pain, unable for ir drain, will place surgical drain possible diversion with ileostomy and drain Attestation The exam, history, and the medical decision-making described in the above note were completed with the assistance of the mid-level provider. I reviewed and agree with the findings presented. I attest that I had a [id number] encounter with the patient on the same day, and personally performed and documented my assessment and findings in the medical record. Haley Soto Apr 10, 2017 10:28 Shaw Mae MD Apr 16, 2017 21:14
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
[2017-04-10 12:00] VITALS: BP 118/74; PULSE 98; RESP 18; TEMP 97.7; O2SAT 96
[2017-04-10 16:00] VITALS: BP 133/89; PULSE 101; RESP 16; TEMP 98.9; O2SAT 95
--- NOTE | 2017-04-10 16:09 | HHI.PR ---
Subjective Remarks Follow-up visit for recurrent diverticulitis, diverticular abscess. Patient seen and examined today. Sitting in bed. Reports she occasionally has abdominal pain but no worsening. Denies any nausea, vomiting, diarrhea. Patient is very tearful states that she was in the bathroom earlier because she was attending to her brother that has been disabled in giving him a shower. Patient states that there is just 2 of them and that there are nobody to take care of his brother and she is concerned that when she goes to surgery tomorrow that nobody will provide food for her brother. Otherwise, denies pain or discomfort, fevers, chills, chest pain, shortness of breath or dyspnea. Afebrile Objective Vitals Vital Signs Date Time Temp Pulse Resp B/P (MAP) Pulse Ox O2 Delivery O2 Flow Rate FiO2 04/10/17 12:00 97.7 98 18 118/74 (89) 96 04/10/17 08:00 98.0 76 16 135/94 (108) 95 04/10/17 04:00 97.6 80 22 134/84 (101) 97 04/10/17 00:00 97.6 78 20 119/72 (88) 96 04/09/17 20:00 98.5 90 20 132/85 (101) 97 I/O 04/09/17 04/09/17 04/09/17 04/10/17 04/10/17 04/10/17 07:00 15:00 23:00 07:00 15:00 23:00 Intake Total 200 ml 100 ml 1580 ml 1085 ml Balance 200 ml 100 ml 1580 ml 1085 ml Intake Oral 480 ml 480 ml IV Total 200 ml 100 ml 1100 ml 605 ml # Voids 6 2 # Bowel Movements 3 Result Diagram: 04/09/17 0825 04/08/17 0628 Imaging Last Impressions Abdomen/Pelvis CT 04/07/17 0000 Signed Impressions: Service Date/Time: Friday, April 07, 2017 16:27 - CONCLUSION: 1. Irregular diverticular abscess in the deep pelvic cavity and contiguous with the roof of the urinary bladder. A safe drainage path is not clearly visualized. Interventional radiology consultation is pending. 2. Umbilical hernia containing fat and a short segment of small bowel. No obstruction or induration. 3. Small to moderate hiatal hernia again noted. 4. Trace left base atelectasis. Jose Tavares MD Chest X-Ray 04/06/17 3417 Signed Impressions: Service Date/Time: Friday, April 07, 2017 00:11 - CONCLUSION: No acute abnormality is identified. Jose Martinez MD Objective Remarks GENERAL: This is an obese female patient, in no apparent distress. SKIN: Warm and dry HEENT: Normocephalic. Pupils equal round and reactive. Nose without bleeding. Airway patent. NECK: Trachea midline. No JVD. Supple. CARDIOVASCULAR: Regular rate and rhythm without murmurs, gallops, or rubs. RESPIRATORY: Clear to auscultation. Breath sounds equal bilaterally. No wheezes , rales, or rhonchi. GASTROINTESTINAL: Abdomen soft, nondistended. Bowel Sounds normoactive x4. Tender to palpate lower abdomen toward suprapubic area. MUSCULOSKELETAL: Extremities without clubbing, cyanosis, or edema. NEUROLOGICAL: Awake and alert. Oriented to time, place, person. No focal neuro deficit. Moves all extremities. Normal speech. A/P Problem List: (1) Abscess of sigmoid colon due to diverticulitis ICD Code: K57.20 - Diverticulitis of large intestine with perforation and abscess without bleeding Status: Acute (2) Leukocytosis ICD Code: D72.829 - Elevated white blood cell count, unspecified (3) Hypokalemia ICD Code: E87.6 - Hypokalemia (4) Hypothyroidism ICD Code: E03.9 - Hypothyroidism, unspecified Assessment and Plan Patient is a 56-year-old female who came into the hospital for complaints of abdominal pain. Abscess of sigmoid colon due to diverticulitis, recurrence - General surgeon following. - Currently on Zosyn. Continue with Zosyn. - Plan for surgical procedure tomorrow. Nothing by mouth after midnight. - Pain management morphine IV Hypokalemia -Replenish as needed. Hypothyroidism -Continue with Synthroid DVT prop, SCDs, ambulatory Discuss condition with patient, nursing, Dr. Leon Discharge Planning Plan to DC home when cleared by surgery. Not ready for DC this procedure is to be done tomorrow. Zoe Guzman Apr 10, 2017 16:09
[2017-04-10 20:00] VITALS: BP_SYST 130; BP_SYST 167; BP_DIAS 80; BP_DIAS 84; PULSE 71; PULSE 90; RESP 18; RESP 22; TEMP 96.1; TEMP 97.4; O2SAT 96
--- NOTE | 2017-04-10 22:53 | RADRPT ---
EXAM DATE/TIME: 04/10/2017 21:27 [facility] COMPARISON: CT ABDOMEN & PELVIS W CONTRAST, April 07, 2017, 16:27. INDICATIONS : Pelvic pain. Known diverticular abscess. MEDICAL HISTORY : Gastroesophageal reflux disease. Thyroid disease. Dentures. Asthma. Diverticulitis. Hiatal hernia . SURGICAL HISTORY : Hernia repair. Partial hysterectomy. Right hip pins and plates. Ablation. ENCOUNTER: Initial ACUITY: 2 months PAIN SCORE: 10/10 LOCATION: Bilateral pelvis MEASUREMENTS: UTERUS Surgically absent RIGHT OVARY: 2.2 x 1.7 x 1.2 cm LEFT OVARY: Non visualized FINDINGS: The study is suboptimal secondary to patient pain. UTERUS: Status post hysterectomy. There is an ill-defined complex fluid collection in the central pelvis elroy uring up to approximately 3.9 x 3.1 x 3.5 cm. This corresponds to the diverticular abscess seen on e CT. RIGHT OVARY: Ovary contains no mass or significant cystic lesion. LEFT OVARY: No ovarian tissue or adnexal mass. MISCELLANEOUS: No free fluid. CONCLUSION: 1. Visualization of a ill-defined complex fluid collection in the central pelvis corresponding to the known diverticular abscess seen on CT. 2. Unremarkable right ovary. 3. Status post hysterectomy. 4. Nonvisualization of the left ovary with no evidence of an adnexal mass. Tim Quinones MD on April 10, 2017 at 22:48 Board Certified Radiologist. This report was verified electronically.
[2017-04-10] MEDS: MORPHINE SULFATE 4 MG/ML INJ IV PUSH PRN (23:09)
[2017-04-11] VITALS: BP 140/92; PULSE 91; RESP 20; TEMP 97; O2SAT 95
[2017-04-11 04:00] VITALS: BP 141/87; PULSE 81; RESP 20; TEMP 97.6; O2SAT 95
[2017-04-11] MEDS: SODIUM CHLOR 0.9% 1000 ML INJ 1,000 ML IV SCH ×3 (04:57→23:12)
[2017-04-11] MEDS: LEVOTHYROXINE SODIUM 125 MCG TAB PO SCH (06:26)
[2017-04-11] MEDS: PIPERACIL-TAZO 4.5 GM PREMIX 100 ML IV SCH ×4 (06:26→23:10)
[2017-04-11] MEDS: PANTOPRAZOLE SOD 40 MG DELAYED RELEASE TAB PO SCH (07:52)
[2017-04-11] MEDS: DOCUSATE SODIUM 50 MG/SENNA 8.6 MG TAB PO SCH ×2 (07:52→20:52)
[2017-04-11] MEDS: SODIUM CHLORIDE 0.9% FLUSH 10 ML FLUSH IV FLUSH SCH ×2 (07:53→20:51)
[2017-04-11] MEDS: LORazepam 0.5 MG TAB PO SCH ×2 (07:53→20:52)
[2017-04-11 08:00] VITALS: BP 129/82; PULSE 75; RESP 16; TEMP 96.9; O2SAT 96
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
--- NOTE | 2017-04-11 09:41 | EKG ---
Date Performed: 04/11/2017 Time Performed: 08:19:59 PTAGE: 56 years EKG: Sinus rhythm LEFT ANTERIOR FASCICULAR BLOCK ABNORMAL ECG NO PREVIOUS TRACING DOCTOR: Rebecca Mast Interpretating Date/Time 04/11/2017 09:40:45
[2017-04-11] MEDS ORDERED: BUPIVACAINE/EPINEPHRINE 0.25% PF 30 ML VIAL ONE (10:03)
--- NOTE | 2017-04-11 10:43 | HHI.PR ---
Immediate Post Op Note Procedure Date: Apr 11, 2017 Pre Op Diagnosis: diverticular abscess Post Op Diagnosis: same Surgeon: Shaw Mae MD [employer] Principal(s): see or sheet Procedure: dx lap, lap washout and drain placement, diverting loop ileostomy Findings: scant purulent material Complications: none Specimen(s) removed: none Estimated blood loss: 5cc Anesthesia: General Drains: PRERNA Patient to: PACU Patient Condition: Good Shaw Mae MD Apr 11, 2017 10:43
[2017-04-11] MEDS ORDERED: ROCURONIUM INJ 50 MG/5 ML SYRINGE IV PUSH ONE (12:00)
[2017-04-11] MEDS ORDERED: NEOSTIGMINE 5 MG/5 ML SYRINGE IV PUSH ONE (12:00)
[2017-04-11] MEDS ORDERED: PROPOFOL 200 MG/20 ML AMP IV ONE (12:00)
[2017-04-11] MEDS ORDERED: GLYCOPYRROLATE 1 MG/5 ML SYRINGE IV PUSH ONE (12:00)
[2017-04-11] MEDS ORDERED: ONDANSETRON HCL 4 MG/2 ML VIAL IV ONE (12:00)
[2017-04-11] MEDS ORDERED: DEXAMETHASONE SOD PHOS 4 MG/ML VIAL IV ONE (12:00)
[2017-04-11] MEDS ORDERED: LACTATED RINGER'S 1000 ML INJ 2,000 ML IV ONE (12:00)
[2017-04-11] MEDS ORDERED: PHENYLEPH/NS 1000 MCG/10 ML SYR IV ONE (12:00)
[2017-04-11] MEDS ORDERED: MORPHINE SULFATE 4 MG/ML INJ IV ONE (12:00)
[2017-04-11] MEDS ORDERED: LABETALOL HCL 100 MG/20 ML VIAL IV ONE (12:00)
[2017-04-11] MEDS ORDERED: LIDOCAINE HCL 1% PF 5 ML SYRINGE OTHER ONE (12:00)
[2017-04-11] MEDS ORDERED: DO NOT ADM ANY ANTICOAGULANT DRUGS PRN (13:03)
[2017-04-11] MEDS ORDERED: SUGAMMADEX SODIUM 200 MG/2 ML VIAL IV PUSH ONE ×2 (13:20)
[2017-04-11] MEDS ORDERED: *morphine SULFATE 8 MG/ML PERIprocedure ONLY ONE (13:21)
--- NOTE | 2017-04-11 15:02 | HHI.PR ---
Subjective Remarks Follow-up visit recurrent diverticulitis, status post lap, lap washout drain placement and ileostomy placement. Patient seen and examined today. Laying in bed screaming she is in pain. Unable to open her eyes very drowsy but still is able to complain that the pain is inside her stomach. Patient is oriented to person, knows where she is at, no sweats year and month. Denies shortness of breath or dyspnea. According to nursing O2 sat was on the low side to The point O2 2-3 L nasal cannula. Objective Vitals Vital Signs Date Time Temp Pulse Resp B/P (MAP) Pulse Ox O2 Delivery O2 Flow Rate FiO2 04/11/17 13:26 14 04/11/17 13:00 97.8 84 20 157/95 (115) 92 Simple Mask 10 04/11/17 08:00 96.9 75 16 129/82 (98) 96 04/11/17 04:00 97.6 81 20 141/87 (105) 95 04/11/17 00:00 97.0 91 20 140/92 (108) 95 04/10/17 20:00 97.4 90 18 130/84 (99) 96 04/10/17 16:00 98.9 101 16 133/89 (104) 95 I/O 04/10/17 04/10/17 04/10/17 04/11/17 04/11/17 04/11/17 07:00 15:00 23:00 07:00 15:00 23:00 Intake Total 1085 ml 2870 ml 1015 ml 2347 ml Balance 1085 ml 2870 ml 1015 ml 2347 ml Intake Oral 480 ml 720 ml 240 ml IV Total 605 ml 2150 ml 775 ml 2347 ml # Voids 2 3 2 # Bowel Movements 1 0 Result Diagram: 04/09/17 0825 04/08/17 0628 Imaging Last Impressions Pelvis Ultrasound 04/10/17 0000 Signed Impressions: Service Date/Time: Monday, April 10, 2017 21:27 - CONCLUSION: 1. Visualization of a ill-defined complex fluid collection in the central pelvis corresponding to the known diverticular abscess seen on CT. 2. Unremarkable right ovary. 3. Status post hysterectomy. 4. Nonvisualization of the left ovary with no evidence of an adnexal mass. Tim Quinones MD Abdomen/Pelvis CT 04/07/17 0000 Signed Impressions: Service Date/Time: Friday, April 07, 2017 16:27 - CONCLUSION: 1. Irregular diverticular abscess in the deep pelvic cavity and contiguous with the roof of the urinary bladder. A safe drainage path is not clearly visualized. Interventional radiology consultation is pending. 2. Umbilical hernia containing fat and a short segment of small bowel. No obstruction or induration. 3. Small to moderate hiatal hernia again noted. 4. Trace left base atelectasis. Jose Tavares MD Chest X-Ray 04/06/17 2354 Signed Impressions: Service Date/Time: Friday, April 07, 2017 00:11 - CONCLUSION: No acute abnormality is identified. Jose Martinez MD Objective Remarks GENERAL: This is an obese female patient, in no apparent distress. SKIN: Warm and dry HEENT: Normocephalic. Pupils equal round and reactive. Nose without bleeding. Airway patent. NECK: Trachea midline. No JVD. Supple. CARDIOVASCULAR: Regular rate and rhythm without murmurs, gallops, or rubs. RESPIRATORY: Clear to auscultation. Breath sounds equal bilaterally. No wheezes , rales, or rhonchi. GASTROINTESTINAL: Abdomen soft, nondistended. Bowel Sounds hypoactive. PRERNA drain left lower quadrant, draining serous sanguinous. Ileostomy on the right quadrant stoma is pink, draining sanguinous drain was small amount with clots. MUSCULOSKELETAL: Extremities without clubbing, cyanosis, or edema. NEUROLOGICAL: Awake and alert. Oriented to time, place, person. No focal neuro deficit. Moves all extremities. Normal speech. Procedures Status post lap, lap washed out and drain placement 04/11/17 Status post ileostomy placement 04/11/17 A/P Problem List: (1) Abscess of sigmoid colon due to diverticulitis ICD Code: K57.20 - Diverticulitis of large intestine with perforation and abscess without bleeding Status: Acute (2) Leukocytosis ICD Code: D72.829 - Elevated white blood cell count, unspecified (3) Hypokalemia ICD Code: E87.6 - Hypokalemia (4) Hypothyroidism ICD Code: E03.9 - Hypothyroidism, unspecified Assessment and Plan Patient is a 56-year-old female who came into the hospital for complaints of abdominal pain. Status post lap, lap washout and drain placement, ileostomy placement Abscess of sigmoid colon due to diverticulitis, recurrence - PRERNA drain on the left side draining serous sanguinous strain, ileostomy stoma was pink, draining sanguinous strain - Pain management IV morphine for now - As per surgery patient may advance diet to clears and tolerated - PT for eval and treatment post op - Currently on Zosyn. Continue with Zosyn. - Gen Sx following Hypokalemia -Replenish as needed. Hypothyroidism -Continue with Synthroid DVT prop, SCDs, ambulatory Discuss condition with patient, nursing, Dr. Leon Discharge Planning Plan to DC home when cleared by surgery. POD today. Zoe Guzman Apr 11, 2017 15:02
[2017-04-11] MEDS: MORPHINE SULFATE 4 MG/ML INJ IV PUSH PRN ×3 (15:08→21:07)
[2017-04-11 16:00] VITALS: BP_SYST 158; BP_SYST 174; BP_DIAS 106; BP_DIAS 98; PULSE 83; RESP 17; TEMP 98.7; O2SAT 95
--- NOTE | 2017-04-11 18:05 | MP ---
cc: HELEN MAE MD DATE OF SURGERY: 04/11/2017 PREOPERATIVE DIAGNOSIS: Diverticular abscess. POSTOPERATIVE DIAGNOSIS: Diverticular abscess. Intense inflammatory reaction, adhesions. SURGEON: Dr. Helen Mae. HANDS PARTER: See OR sheet. ANESTHESIA: GETA. IV FLUIDS 2100 cc ESTIMATED BLOOD LOSS: 5 cc PROCEDURE PERFORMED 1. Diagnostic laparoscopy 2. Laparoscopic washout with drain placement. 3. Diverting loop ileostomy. COMPLICATIONS: None. FINDINGS: Minimal purulent material, intense inflammatory response between sigmoid colon and bladder. Multiple interloop adhesions from previous surgeries. INDICATION The patient is a 56-year-old female who presents with acute onset of pain and diverticular abscess. She initially was worked up in February with findings of acute diverticulitis for which she has been treated intermittently with IV and p.o. antibiotics. She did develop recently diverticular abscess with attempted IR drainage without success due to location. Therefore decision was made for laparoscopic washout and drainage of abscess with drain placement and diversion. DETAILS OF PROCEDURE: The patient was taken to the operating suite, placed in supine position. She was prepped and draped in usual sterile fashion after induction of general endotracheal anesthesia. Brief time-out done stating correct patient, procedure, surgical site were all in agreement with this. Attention directed to the left upper quadrant where a stab armida incision was made after injection of local anesthetic with an 11-blade. Veress needle placed, intra-abdominal placement confirmed with saline drop test. Abdomen insufflated to 50 mm pneumoperitoneum. The Veress needle was changed for a 5-mm scope. Upon entrance there was no evidence of injury. There was noted to be multiple adhesions, multiple interloop small bowel adhesions well. Two other ports placed where there were noted not to be adhesions on the left lower quadrant, left mid quadrant. A 5 mm port is placed. The patient placed in Trendelenburg and airplaned to the left. The sigmoid was identified and noted to be intensely adhered to the bladder. Dissection was done with this and the presence of minimal purulence was noted. We continued working to try and completely separate the sigmoid from the bladder was not successful given the inflammatory intense reaction to the bladder. Given this difficulty, no further dissection was continued. Dissection was worked posteriorly with some soft tissue noted. There was noted to be the ovary with ovarian cyst that was encapsulated as well in the inflammatory reaction. After further attempts to try to mobilize again this was not successful to do so therefore this was left in place. At this point decision was made for diverting loop ileostomy. The cecum was identified. The terminal ileum was run proximally to a point approximately 12 cm proximal to the ileocecal valve. This was grasped with a locking grasper. Then attention was directed to the right lower quadrant where a place sufficient to bring up the diverting loop ileostomy was noted. An Allis clamp was used to grab the tissue. A ring of tissue was removed from the skin with a 15 blade. Further dissection done through subcutaneous tissue which was relatively deep with electro Bovie cautery. The anterior fascial cruciate incision was made in order to freely get two fingers between the muscle which was split and the peritoneum was incised again in order to get two fingers freely through. The abdomen was then re-insuflated. The loop of bowel was identified and grasped with a Greene and brought through the surgical wound. This was placed and the bridge was placed in between the mesentery. A transverse incision was made on the small bowel in order to facilitate working. The loop ileostomy was done and tagged to the skin with several 3-0 Vicryl sutures in a radial fashion. Once we were done with this, patency was confirmed and noted. The bridge was secured with 2-0 silk sutures. Next the abdomen insufflated to 10 millimeters, pneumoperitoneum noted. No tension on the loop ileostomy and then again noted to be patent. Therefore, a 19 Burmese Rakesh drain was placed to the anterior pelvis. Irrigation was done with a washing out prior to this. The drain was brought out through the left lower quadrant port and secured in placed with a 2-0 nylon. Pneumoperitoneum removed, ports were removed as well. 4-0 Monocryl was used to close the subcuticular fashion to the ports. Steroids dressings were placed. Lap and instruments were correct at the end of the procedure. The patient tolerated the procedure well, was extubated. No complications. MD BETH Mcleod/IVET /3:45 PM /4:23 PM
[2017-04-11 18:37] LABS: AUTOMATED NEUTROPHIL # 12.3 TH/MM3 (1.8-7.7); BASOPHIL % 0.2 % (0.0-2.0); HEMATOCRIT 37.9 % (35.0-46.0); HEMO FLAGS DIFF FINAL; LYMPH % 3.4 % (9.0-44.0); LYMPHOCYTE # 0.4 TH/MM3 (1.0-4.8); MEAN CELL VOLUME 89.1 FL (80.0-100.0); MEAN CORPUSCULAR HEMOGLOBIN 29.5 PG (27.0-34.0); MEAN CORPUSCULAR HGB CONC 33.2 % (32.0-36.0); MONO % 1.8 % (0.0-8.0); NEUT % 94.6 % (16.0-70.0); PLATELET COUNT 268 TH/MM3 (150-450); RED BLOOD COUNT 4.25 MIL/MM3 (4.00-5.30); RED CELL DISTRIBUTION WIDTH 14.4 % (11.6-17.2)
[2017-04-11 20:00] VITALS: BP 138/85; PULSE 90; RESP 20; TEMP 97.8; O2SAT 94
[2017-04-11 20:06] LABS: ANION GAP 9 MEQ/L (5-15); AST (GOT) 13 U/L (15-37); BICARBONATE 25.9 MEQ/L (21.0-32.0); BLOOD UREA NITROGEN 3 MG/DL (7-18); CHLORIDE 104 MEQ/L (98-107); GLOMERULAR FILTRATION RATE 128 ML/MIN (>89); POTASSIUM 3.5 MEQ/L (3.5-5.1); SODIUM (NA) 139 MEQ/L (136-145)
[2017-04-11 20:07] LABS: ALT (GPT) 8 U/L (10-53)
[2017-04-11 20:09] LABS: ALKALINE PHOSPHATASE 71 U/L (45-117); TOTAL BILIRUBIN ADULT 0.3 MG/DL (0.2-1.0)
[2017-04-12] VITALS: BP 145/87; PULSE 89; RESP 20; TEMP 96.8; O2SAT 97
[2017-04-12] MEDS: MORPHINE SULFATE 4 MG/ML INJ IV PUSH PRN ×4 (00:42→21:23)
[2017-04-12 04:00] VITALS: BP 130/86; PULSE 81; RESP 20; TEMP 97.8; O2SAT 98
[2017-04-12] MEDS: LEVOTHYROXINE SODIUM 125 MCG TAB PO SCH (05:35)
[2017-04-12] MEDS: PIPERACIL-TAZO 4.5 GM PREMIX 100 ML IV SCH ×3 (05:35→16:26)
[2017-04-12 08:00] VITALS: BP 150/94; PULSE 71; RESP 16; TEMP 97.5; O2SAT 97
[2017-04-12 08:10] LABS: HEMATOCRIT 35.5 % (35.0-46.0); MEAN CELL VOLUME 89.5 FL (80.0-100.0); MEAN CORPUSCULAR HEMOGLOBIN 29.5 PG (27.0-34.0); PLATELET COUNT 278 TH/MM3 (150-450); RED BLOOD COUNT 3.97 MIL/MM3 (4.00-5.30); REVIEW FLAG FINAL; WHITE BLOOD COUNT 10.7 TH/MM3 (4.0-11.0)
[2017-04-12 08:33] LABS: POTASSIUM 3.2 MEQ/L (3.5-5.1)
[2017-04-12] MEDS ORDERED: POTASSIUM CHLORIDE 20 MEQ CONTROLLED RELEASE TAB PO ONE (09:00)
[2017-04-12] MEDS: SODIUM CHLORIDE 0.9% FLUSH 10 ML FLUSH IV FLUSH SCH ×2 (09:00→21:23)
[2017-04-12] MEDS ORDERED: POTASSIUM CHLOR 20 MEQ PREMIX 100 ML IV ONE (09:00)
--- NOTE | 2017-04-12 09:17 | HHI.PR ---
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 Patient seen and examined today. Reports she still has pain but able to move around. Encouraged to be out of bed to chair and work with physical therapy today. Denies shortness of breath or dyspnea but states she gets out of breath occasionally with exertion. Denies nausea or vomiting. Denies fevers or chills. Objective Vitals Vital Signs Date Time Temp Pulse Resp B/P (MAP) Pulse Ox O2 Delivery O2 Flow Rate FiO2 04/12/17 08:00 97.5 71 16 150/94 (112) 97 04/12/17 04:00 97.8 81 20 130/86 (101) 98 04/12/17 00:00 96.8 89 20 145/87 (106) 97 04/11/17 20:00 97.8 90 20 138/85 (102) 94 04/11/17 16:00 98.7 83 17 174/106 (128) 95 158/98 (118) 04/11/17 14:25 97.6 82 16 146/89 (108) 95 Nasal Cannula 3 04/11/17 14:15 80 16 149/90 (109) 95 Nasal Cannula 3 04/11/17 14:00 79 16 152/88 (109) 94 Nasal Cannula 3 04/11/17 13:45 82 16 153/90 (111) 93 Nasal Cannula 3 04/11/17 13:30 83 15 151/89 (109) 96 Simple Mask 10 04/11/17 13:26 14 04/11/17 13:15 87 15 153/92 (112) 93 Simple Mask 10 04/11/17 13:00 97.8 84 20 157/95 (115) 92 Simple Mask 10 I/O 04/11/17 04/11/17 04/11/17 04/12/17 04/12/17 04/12/17 07:00 15:00 23:00 07:00 15:00 23:00 Intake Total 1015 ml 2447 ml 304 ml 1194 ml Output Total 100 ml 1365 ml Balance 1015 ml 2447 ml 204 ml -171 ml Intake Oral 240 ml 30 ml 240 ml IV Total 775 ml 2447 ml 274 ml 954 ml Output Urine Total 50 ml 1250 ml Stool Total 75 ml Drainage Total 50 ml 40 ml # Voids 2 0 4 # Bowel Movements 0 0 0 Result Diagram: 04/12/17 0705 04/12/17 0705 Imaging Last Impressions Pelvis Ultrasound 04/10/17 0000 Signed Impressions: Service Date/Time: Monday, April 10, 2017 21:27 - CONCLUSION: 1. Visualization of a ill-defined complex fluid collection in the central pelvis corresponding to the known diverticular abscess seen on CT. 2. Unremarkable right ovary. 3. Status post hysterectomy. 4. Nonvisualization of the left ovary with no evidence of an adnexal mass. Tim Quinones MD Abdomen/Pelvis CT 04/07/17 0000 Signed Impressions: Service Date/Time: Friday, April 07, 2017 16:27 - CONCLUSION: 1. Irregular diverticular abscess in the deep pelvic cavity and contiguous with the roof of the urinary bladder. A safe drainage path is not clearly visualized. Interventional radiology consultation is pending. 2. Umbilical hernia containing fat and a short segment of small bowel. No obstruction or induration. 3. Small to moderate hiatal hernia again noted. 4. Trace left base atelectasis. Jose Tavares MD Chest X-Ray 04/06/17 1467 Signed Impressions: Service Date/Time: Friday, April 07, 2017 00:11 - CONCLUSION: No acute abnormality is identified. Jose Martinez MD Objective Remarks GENERAL: This is an obese female patient, in no apparent distress. SKIN: Warm and dry HEENT: Normocephalic. Pupils equal round and reactive. Nose without bleeding. Airway patent. NECK: Trachea midline. No JVD. Supple. CARDIOVASCULAR: Regular rate and rhythm without murmurs, gallops, or rubs. RESPIRATORY: Clear to auscultation. Breath sounds equal bilaterally. No wheezes , rales, or rhonchi. GASTROINTESTINAL: Abdomen soft, nondistended. Bowel Sounds hypoactive. PRERNA drain left lower quadrant, draining serous sanguinous. Ileostomy on the right quadrant stoma is pink, draining sanguinous drain was small amount with clots. Scant amount stool. MUSCULOSKELETAL: Extremities without clubbing, cyanosis, or edema. NEUROLOGICAL: Awake and alert. Oriented to time, place, person. No focal neuro deficit. Moves all extremities. Normal speech. Procedures Status post lap, lap washed out and drain placement 04/11/17 Status post diverting ileostomy placement 04/11/17 A/P Problem List: (1) Abscess of sigmoid colon due to diverticulitis ICD Code: K57.20 - Diverticulitis of large intestine with perforation and abscess without bleeding Status: Acute (2) Leukocytosis ICD Code: D72.829 - Elevated white blood cell count, unspecified (3) Hypokalemia ICD Code: E87.6 - Hypokalemia (4) Hypothyroidism ICD Code: E03.9 - Hypothyroidism, unspecified Assessment and Plan Patient is a 56-year-old female who came into the hospital for complaints of abdominal pain. Status post lap, lap washout and drain placement, ileostomy placement Abscess of sigmoid colon due to diverticulitis, recurrence - PRERNA drain on the left side draining serous sanguinous strain, ileostomy stoma was pink, draining sanguinous strain - Pain management IV morphine for now - As per surgery patient may advance diet to clears and tolerated - PT for eval and treatment post op - Continue with Zosyn. By mouth Cipro Flagyl when discharge - Gen Sx following plan and recommendation is for patient to be discharged with antibiotics follow-up as an outpatient. Plan for 2-3 months to take out colon after bowel rest. - PT eval and treat Hypokalemia - Replenish as needed. Hypothyroidism - Continue with Synthroid DVT prop, SCDs, ambulatory Discuss condition with patient, nursing, Dr. Leon Discharge Planning Plan to DC home with [facility] when cleared by surgery. POD #1 today. Attending Statement The exam, history, and the medical decision-making described in the above note were completed with the assistance of the mid-level provider. I reviewed and agree with the findings presented. I attest that I had a [id number] encounter with the patient on the same day, and personally performed and documented my assessment and findings in the medical record. Patient found sleeping woke up by me. Patient has no complaints. She stated that the pain is controlled to morphine. Patient was seen with Haley Main from general surgery. Patient has not tried any clear liquids yet. She stated that she try to set in the chair yesterday but it was very comfortable. Gen NAD CV RRR. no r/m/g Resp CTA B/L Abd ostomy in place. Ostomy is erythematous. Minimal output. Drain in place serosanguineous. Negative for any peritoneal signs. Mild tenderness to palpation. Assessment and plan Recurrent diverticulitis with abscess Status post lap, lap washout and drain placement, ileostomy placement Patient currently on Levaquin. Once patient tolerates oral intake can switch over to Cipro and Flagyl. Encourage clear liquid diet. Advance as tolerated by surgeon. Continue with pain control and wants able to take oral intake switch over to oral pain meds. continue with supportive care. Zoe Guzman Apr 12, 2017 09:16 Viviana Leon MD Apr 12, 2017 11:48
[2017-04-12] MEDS: ONDANSETRON HCL 4 MG/2 ML VIAL IVP PRN (09:31)
[2017-04-12] MEDS: LORazepam 0.5 MG TAB PO SCH ×2 (09:35→21:23)
[2017-04-12] MEDS: PANTOPRAZOLE SOD 40 MG DELAYED RELEASE TAB PO SCH (09:35)
[2017-04-12] MEDS: DOCUSATE SODIUM 50 MG/SENNA 8.6 MG TAB PO SCH ×2 (09:35→21:23)
--- NOTE | 2017-04-12 10:24 | HHI.FF ---
Face to Face Verification Diagnosis: (1) Abscess of sigmoid colon due to diverticulitis (2) Diverticulitis (3) S/P ileostomy Physical Therapy Order: Evaluate and Treat, Improve ambulation, Strength and gait training Home Health Nursing Order: Medical education Signs/symptoms of disease process Wound care and dressing changes Nursing assessment with vital signs Instructions: Ileostomy care PRERNA Drain Care I have seen patient Genesis James on 04/12/17. My clinical findings support the need for the requested home health care services because: Ltd mobility - disease progression Limited ability to care for self Infection w/ risk of complications I certify that my clinical findings support that this patient is homebound because: Post-op weakness Unable to use public transportation Zoe Guzman Apr 12, 2017 10:24
[2017-04-12] MEDS ORDERED: NORC5TAB PO (10:28)
[2017-04-12] MEDS ORDERED: CIPR-9 PO (10:28)
[2017-04-12] MEDS ORDERED: METR1TAB76 PO (10:28)
--- NOTE | 2017-04-12 10:49 | PD.WCN.NOT ---
Wound Consult Description: Consult for NEW OSTOMY TEACHING of new ileostomy (04/11/17) per SANJIV Soto Communicated with: Patient Additional Information: Patient seen on [address] [place] [address] for ostomy assessment and teaching. Ostomy Type: Ileostomy (Loop ileostomy) Surgeon: Shaw Mae MD Date of Surgery: Apr 11, 2017 Complete: Education materials Educated patient on: Stoma appearance Stoma function How often to empty pouch How often to change wafer When antoni will be removed Additional information Patient seen on [address] [place] [address] for new ostomy assessment and teaching. Right sided stoma is noted as a loop ileostomy with antoni in place with a cut to fit wafer and clear open ended pouch that was cleaned and closed. There is minimal sanguinous liquid and clots noted in pouch that was not emptied. Stoma is red, oval, moderately protruding, moist, edematous, not functioning at this time. Wafer is intact, pouch is closed. No leaks noted. Patient will be seen again this afternoon/tomorrow morning for further teaching and to answer any questions she may have. Kelly R[facility]os [facility] Apr 12, 2017 10:49
[2017-04-12] MEDS: SODIUM CHLOR 0.9% 1000 ML INJ 1,000 ML IV SCH (10:57)
[2017-04-12 11:52] VITALS: O2SAT 100
[2017-04-12 16:00] VITALS: BP_SYST 152; BP_SYST 162; BP_DIAS 99; PULSE 86; RESP 16; TEMP 97.7; O2SAT 94
--- NOTE | 2017-04-12 16:57 | PD.WCN.NOT ---
Wound Consult Description: Consult for NEW OSTOMY TEACHING of new ileostomy (04/11/17) per SANJIV Soto Communicated with: Patient Recommendation: Empty pouch when 05/09-05/08 full Additional Information: Patient seen today for further teaching and ostomy assessment. Ostomy Type: Ileostomy Surgeon: Shaw Mae MD Date of Surgery: Apr 11, 2017 Complete: Education materials Educated patient on: When and how to remove wafer How to cleanse peristomal skin Stoma appearance and function Measuring stoma for correct size appliance Wafer sizes and options Pouching options How to apply moldable wafer How to attach the pouch Diet and foods that cause odor and gas Chewing foods well Output How to thicken stool Additional information Patient demonstrated how to place wafer on practice stoma and how to attach the pouch to the flange on the wafer. Patient also demonstrated how to open and close pouch. Patient had many questions that were answered regarding diet. Patient requested radio script writer to return on Sunday04/13/17 at 1100 for further teaching and demonstration. Kelly Ríos [facility] Apr 12, 2017 16:56
[2017-04-12 21:15] VITALS: BP 162/93; PULSE 93; RESP 19; TEMP 99.1; O2SAT 95
[2017-04-13] VITALS (8 sets, daily range): BP systolic 142–169; BP diastolic 86–107; PULSE 84–92; RESP 17–21; TEMP 97.3–99.3; O2SAT 92–95
[2017-04-13] MEDS: SODIUM CHLOR 0.9% 1000 ML INJ 1,000 ML IV SCH ×3 (01:02→18:27)
[2017-04-13] MEDS: PIPERACIL-TAZO 4.5 GM PREMIX 100 ML IV SCH ×4 (01:03→17:47)
[2017-04-13] MEDS: MORPHINE SULFATE 4 MG/ML INJ IV PUSH PRN ×3 (01:09→08:25)
[2017-04-13] MEDS: LEVOTHYROXINE SODIUM 125 MCG TAB PO SCH (06:37)
[2017-04-13] MEDS: LORazepam 0.5 MG TAB PO SCH ×2 (08:24→22:50)
[2017-04-13] MEDS: DOCUSATE SODIUM 50 MG/SENNA 8.6 MG TAB PO SCH ×2 (08:25→20:04)
[2017-04-13] MEDS: PANTOPRAZOLE SOD 40 MG DELAYED RELEASE TAB PO SCH (08:25)
[2017-04-13] MEDS: SODIUM CHLORIDE 0.9% FLUSH 10 ML FLUSH IV FLUSH SCH ×2 (08:26→20:05)
--- NOTE | 2017-04-13 12:03 | HHI.PR ---
Subjective Subjective Notes DELAYED ENTRY NOTE------ THIS IS A NOTE FOR APR 12 Resting in bed Pain moderate Dr. Leon also as at bedside Objective Vitals/I&O Vital Signs Date Time Temp Pulse Resp B/P (MAP) Pulse Ox O2 Delivery O2 Flow Rate FiO2 04/13/17 08:32 18 04/13/17 08:00 97.3 91 169/107 (127) 92 155/99 (117) 04/12/17 20:10 Nasal Cannula 2.00 Labs Date/Time Source Procedure Growth Status 04/07/17 00:20 Blood Peripheral Aerobic Blood Culture - Final NO GROWTH IN 5 DAYS Complete 04/07/17 00:20 Blood Peripheral Anaerobic Blood Culture - Final NO GROWTH IN 5 DAYS Complete Cardiovascular: Regular Lungs: Clear Abdomen: Other (obese abdomen; lap sites c/d/i; PRERNA with SS drainage; ileostomy ---stoma pink; no output ) Extremities: No edema A/P Assessment and Plan 56 year old female with recurrent acute diverticulitis; failed outpatient treatment; POD1 dx lap; ileostomy; drain placement -Sips of clear liquids -OOB and mobilize -Continue Zosyn -IS Attending Statement patient seen at bedside POD 1 Doing ok having pain will increase meds no fever ok for clears Attestation The exam, history, and the medical decision-making described in the above note were completed with the assistance of the mid-level provider. I reviewed and agree with the findings presented. I attest that I had a [id number] encounter with the patient on the same day, and personally performed and documented my assessment and findings in the medical record. Haley Soto Apr 13, 2017 12:03 Shaw Mae MD Apr 17, 2017 05:08
--- NOTE | 2017-04-13 12:06 | HHI.PR ---
Subjective Subjective Notes Resting in bed Painful RN Yolanda at bedside Objective Vitals/I&O Vital Signs Date Time Temp Pulse Resp B/P (MAP) Pulse Ox O2 Delivery O2 Flow Rate FiO2 04/13/17 08:32 18 04/13/17 08:00 97.3 91 169/107 (127) 92 155/99 (117) 04/12/17 20:10 Nasal Cannula 2.00 Labs Date/Time Source Procedure Growth Status 04/07/17 00:20 Blood Peripheral Aerobic Blood Culture - Final NO GROWTH IN 5 DAYS Complete 04/07/17 00:20 Blood Peripheral Anaerobic Blood Culture - Final NO GROWTH IN 5 DAYS Complete Cardiovascular: Regular Lungs: Clear Abdomen: Other (lap sites c/d/i; ilsostomy with pink stoma---minimal thin output; PRERNA with SS drainage ) Extremities: No edema A/P Assessment and Plan 56 year old female with recurrent acute diverticulitis; failed outpatient treatment; POD2 dx lap; ileostomy; drain placement -Advance to fulls although I did encourage small more frequent meals -OOB and mobilize -Continue Zosyn -IS -Start Lovenox -PT Attending Statement patient seen at bedside ok for fulls and needs to ambulate Attestation The exam, history, and the medical decision-making described in the above note were completed with the assistance of the mid-level provider. I reviewed and agree with the findings presented. I attest that I had a [id number] encounter with the patient on the same day, and personally performed and documented my assessment and findings in the medical record. Haley Soto Apr 13, 2017 12:06 Shaw Mae MD Apr 17, 2017 05:10
--- NOTE | 2017-04-13 12:57 | PD.WCN.NOT ---
Wound Consult Description: Consult for NEW OSTOMY TEACHING of new ileostomy (04/11/17) per SANJIV Soto Communicated with: Patient WENCESLAO Soto Recommendation: Empty pouch when 1/3-1/2 full Change wafer every 3-5 days and PRN before leaks occur Additional Information: Patient seen on [address] [place] [address] for ostomy assessment and teaching. Ostomy Type: Ileostomy Surgeon: Shaw Mae MD Date of Surgery: Apr 11, 2017 Complete: [facility] Education materials (at bedside), Rx (left on chart), Other (supplies ordered from [facility] for patient to go home with at discharge) Educated patient on: Stoma size Stoma output Appliances Food Ambulating Sitting up in chair to eat meals Changing the appliance Peristomal skin care Additional information Patient was seen on [place] for ostomy assessment and teaching. Patient is still complaining of pain on the lower midline abdomen area. Patient was encouraged to ambulate and sit up in chair for meals to help with bowels and flatus. Patient gave her verbal consent to receive [facility]'s starter kit with supplies. Patient states that her son had a colostomy when he was a baby and all of the information given is starting to come back to her. Stoma is red, oval , moist, edematous, antoni in place, measuring 1 1/4" by 1 3/4", not functioning at this time. Appliance is in place and noted without leaks. Pouch has minimal red/brown liquid noted that what not emptied by comic book writer. Kelly Ríos [facility] Apr 13, 2017 12:57
--- NOTE | 2017-04-13 12:57 | HHI.PR ---
Subjective Remarks Follow-up recurrent acute diverticulitis, failed outpatient therapy 04/13/17-patient seen and examined, currently tolerating current diet without any complication nausea and vomiting. Afebrile Objective Vitals Vital Signs Date Time Temp Pulse Resp B/P (MAP) Pulse Ox O2 Delivery O2 Flow Rate FiO2 04/13/17 12:00 97.7 91 20 151/97 (115) 92 04/13/17 08:32 18 04/13/17 08:00 97.3 91 21 169/107 (127) 92 155/99 (117) 04/13/17 04:00 98.1 84 18 142/86 (104) 93 04/13/17 00:00 99.3 92 20 158/89 (112) 93 04/12/17 21:15 99.1 93 19 162/93 (116) 95 04/12/17 20:10 Nasal Cannula 2.00 04/12/17 16:00 97.7 86 16 162/99 (120) 94 152/99 (116) I/O 04/12/17 04/12/17 04/12/17 04/13/17 04/13/17 04/13/17 07:00 15:00 23:00 07:00 15:00 23:00 Intake Total 1194 ml 100 ml 920 ml 652 ml 480 ml Output Total 1365 ml 30 ml 1325 ml Balance -171 ml 100 ml 890 ml -673 ml 480 ml Intake Oral 240 ml 920 ml IV Total 954 ml 100 ml 652 ml 480 ml Output Urine Total 1250 ml 1200 ml Stool Total 75 ml 75 ml Drainage Total 40 ml 30 ml 50 ml # Voids 9 # Bowel Movements 0 0 0 Result Diagram: 04/12/1770404/12/17704 Imaging Last Impressions Pelvis Ultrasound 04/10/17 0000 Signed Impressions: Service Date/Time: Monday, April 10, 2017 21:27 - CONCLUSION: 1. Visualization of a ill-defined complex fluid collection in the central pelvis corresponding to the known diverticular abscess seen on CT. 2. Unremarkable right ovary. 3. Status post hysterectomy. 4. Nonvisualization of the left ovary with no evidence of an adnexal mass. Tim Quinones MD Abdomen/Pelvis CT 04/07/17 0000 Signed Impressions: Service Date/Time: Friday, April 07, 2017 16:27 - CONCLUSION: 1. Irregular diverticular abscess in the deep pelvic cavity and contiguous with the roof of the urinary bladder. A safe drainage path is not clearly visualized. Interventional radiology consultation is pending. 2. Umbilical hernia containing fat and a short segment of small bowel. No obstruction or induration. 3. Small to moderate hiatal hernia again noted. 4. Trace left base atelectasis. Jose Tavares MD Chest X-Ray 04/06/17 [id number] Signed Impressions: Service Date/Time: Friday, April 07, 2017 00:11 - CONCLUSION: No acute abnormality is identified. Jose Martinez MD Objective Remarks GENERAL: NAD SKIN: Warm and dry. HEAD: Normocephalic. EYES: No scleral icterus. No injection or drainage. NECK: Supple, trachea midline. No JVD or lymphadenopathy. CARDIOVASCULAR: Regular rate and rhythm without murmurs, gallops, or rubs. RESPIRATORY: Breath sounds equal bilaterally. No accessory muscle use. GASTROINTESTINAL: Abdomen soft, non-tender, nondistended. Ileostomy bag in place; PRERNA drain in place MUSCULOSKELETAL: No cyanosis, or edema. BACK: Nontender without obvious deformity. No CVA tenderness. Procedures Status post lap, lap washed out and drain placement 04/11/17 Status post diverting ileostomy placement 04/11/17 A/P Problem List: (1) Abscess of sigmoid colon due to diverticulitis ICD Code: K57.20 - Diverticulitis of large intestine with perforation and abscess without bleeding Status: Acute (2) Leukocytosis ICD Code: D72.829 - Elevated white blood cell count, unspecified (3) Hypokalemia ICD Code: E87.6 - Hypokalemia (4) Hypothyroidism ICD Code: E03.9 - Hypothyroidism, unspecified Assessment and Plan 56-year-old female with Recurrent acute sigmoid diverticulitis - Status post lap, lap washout and drain placement, ileostomy placement - Management per general surgery - Continue with Zosyn. By mouth Cipro Flagyl when discharge - Pain management accordingly with Ofirmev and advance diet as tolerated - PT eval and treat Hypokalemia - Replenish as needed. Hypothyroidism - Continue with Synthroid DVT prop, Lovenox Elias Looney MD Apr 13, 2017 12:57
[2017-04-13] MEDS ORDERED: POTASSIUM CHLORIDE 25 MEQ EFFERVESCENT TAB PO ONE (14:00)
[2017-04-13] MEDS: ACETAMINOPHEN 1000 MG/100 ML 100 ML IV SCH ×2 (14:17→20:05)
[2017-04-13] MEDS: ENOXAPARIN SODIUM 40 MG/0.4 ML SYRINGE SQ SCH (14:18)
[2017-04-13] MEDS: ONDANSETRON HCL 4 MG/2 ML VIAL IVP PRN ×2 (14:21→20:03)
[2017-04-14] VITALS: BP 148/105; PULSE 88; RESP 16; TEMP 98.7; O2SAT 92
[2017-04-14] MEDS: PIPERACIL-TAZO 4.5 GM PREMIX 100 ML IV SCH ×4 (00:42→18:05)
[2017-04-14] MEDS: ACETAMINOPHEN 1000 MG/100 ML 100 ML IV SCH ×4 (02:15→19:57)
[2017-04-14] MEDS: ONDANSETRON HCL 4 MG/2 ML VIAL IVP PRN ×2 (02:16→14:12)
[2017-04-14] MEDS: MORPHINE SULFATE 4 MG/ML INJ IV PUSH PRN (02:58)
[2017-04-14] MEDS: LEVOTHYROXINE SODIUM 125 MCG TAB PO SCH (05:30)
[2017-04-14 06:33] LABS: AUTOMATED NEUTROPHIL # 9.5 TH/MM3 (1.8-7.7); BASOPHIL # 0.1 TH/MM3 (0-0.2); BASOPHIL % 0.7 % (0.0-2.0); EOSINOPHIL # 0.2 TH/MM3 (0-0.4); EOSINOPHIL % 1.6 % (0.0-4.0); HEMATOCRIT 40.2 % (35.0-46.0); HEMO FLAGS DIFF FINAL; LYMPH % 13.6 % (9.0-44.0); LYMPHOCYTE # 1.7 TH/MM3 (1.0-4.8); MEAN CELL VOLUME 89.3 FL (80.0-100.0); MEAN CORPUSCULAR HEMOGLOBIN 29.7 PG (27.0-34.0); MEAN CORPUSCULAR HGB CONC 33.3 % (32.0-36.0); MONO % 8.4 % (0.0-8.0); NEUT % 75.7 % (16.0-70.0); PLATELET COUNT 303 TH/MM3 (150-450); RED CELL DISTRIBUTION WIDTH 14.5 % (11.6-17.2); WHITE BLOOD COUNT 12.6 TH/MM3 (4.0-11.0)
[2017-04-14 07:07] LABS: BICARBONATE 21.9 MEQ/L (21.0-32.0); POTASSIUM 3.7 MEQ/L (3.5-5.1)
[2017-04-14 08:00] VITALS: BP 120/82; PULSE 93; RESP 16; TEMP 97.6; O2SAT 93
[2017-04-14] MEDS: LORazepam 0.5 MG TAB PO SCH ×2 (09:59→19:57)
[2017-04-14] MEDS: PANTOPRAZOLE SOD 40 MG DELAYED RELEASE TAB PO SCH (09:59)
[2017-04-14] MEDS: SODIUM CHLORIDE 0.9% FLUSH 10 ML FLUSH IV FLUSH SCH ×2 (10:00→19:57)
[2017-04-14] MEDS: DOCUSATE SODIUM 50 MG/SENNA 8.6 MG TAB PO SCH ×2 (10:00→19:57)
[2017-04-14] MEDS: SODIUM CHLOR 0.9% 1000 ML INJ 1,000 ML IV SCH ×2 (10:00→19:55)
--- NOTE | 2017-04-14 10:46 | HHI.PR ---
Subjective Remarks Follow-up recurrent acute diverticulitis, failed outpatient therapy 04/13/17-patient seen and examined, currently tolerating current diet without any complication nausea and vomiting. Afebrile 04/14/17-patient seen and examined, that she had episode of nausea and vomiting after taking by mouth as of yesterday. Currently stable. Objective Vitals Vital Signs Date Time Temp Pulse Resp B/P (MAP) Pulse Ox O2 Delivery O2 Flow Rate FiO2 04/14/17 08:00 97.6 93 16 120/82 (95) 93 04/14/17 00:00 98.7 88 16 148/105 (119) 92 04/13/17 20:00 98.2 90 17 163/97 (119) 95 04/13/17 18:25 93 04/13/17 16:00 98.8 92 21 144/97 (113) 93 04/13/17 14:47 16 04/13/17 13:28 93 04/13/17 12:00 97.7 91 20 151/97 (115) 92 I/O 04/13/17 04/13/17 04/13/17 04/14/17 04/14/17 04/14/17 06:59 14:59 22:59 06:59 14:59 22:59 Intake Total 652 ml 580 ml 500 ml 560 ml 100 ml Output Total 1325 ml 50 ml 2200 ml 1465 ml Balance -673 ml 530 ml -1700 ml -905 ml 100 ml Intake Oral 200 ml 360 ml IV Total 652 ml 580 ml 300 ml 200 ml 100 ml Output Urine Total 1200 ml 1900 ml Stool Total 75 ml 250 ml 875 ml Emesis 400 ml Drainage Total 50 ml 50 ml 50 ml 190 ml # Voids 2 # Bowel Movements 0 Result Diagram: 04/14/1751104/14/17511 Objective Remarks GENERAL: NAD SKIN: Warm and dry. HEAD: Normocephalic. EYES: No scleral icterus. No injection or drainage. NECK: Supple, trachea midline. No JVD or lymphadenopathy. CARDIOVASCULAR: Regular rate and rhythm without murmurs, gallops, or rubs. RESPIRATORY: Breath sounds equal bilaterally. No accessory muscle use. GASTROINTESTINAL: Abdomen soft, non-tender, nondistended. Ileostomy bag in place; PRERNA drain in place MUSCULOSKELETAL: No cyanosis, or edema. BACK: Nontender without obvious deformity. No CVA tenderness. Procedures Status post lap, lap washed out and drain placement 04/11/17 Status post diverting ileostomy placement 04/11/17 A/P Problem List: (1) Abscess of sigmoid colon due to diverticulitis ICD Code: K57.20 - Diverticulitis of large intestine with perforation and abscess without bleeding Status: Acute (2) Leukocytosis ICD Code: D72.829 - Elevated white blood cell count, unspecified (3) Hypokalemia ICD Code: E87.6 - Hypokalemia (4) Hypothyroidism ICD Code: E03.9 - Hypothyroidism, unspecified Assessment and Plan 56-year-old female with Recurrent acute sigmoid diverticulitis - Status post lap, lap washout and drain placement, ileostomy placement - Management per general surgery - Continue with Zosyn. By mouth Cipro Flagyl when discharge - Pain management accordingly with Ofirmev and advance diet as tolerated - PT eval and treat Hypokalemia - Resolved status post replacement Hypothyroidism - Continue with Synthroid DVT prop, Lovenox Elias Looney MD Apr 14, 2017 10:46
--- NOTE | 2017-04-14 11:59 | HHI.PR ---
cc: Antonio Bryson MD Subjective Subjective Notes DAILY PROGRESS NOTE FOR SURGICAL ATTENDING, DR. ANTONIO BRYSON Just got out of the shower Feels a lot better Ileostomy functional Would like regular diet to eat Doesn't like by mouth potassium would like it IV Objective Vitals/I&O Vital Signs Date Time Temp Pulse Resp B/P (MAP) Pulse Ox O2 Delivery O2 Flow Rate FiO2 04/14/17 08:00 97.6 93 16 120/82 (95) 93 04/12/17 20:10 Nasal Cannula 2.00 Labs Laboratory Tests Test 04/14/17 05:12 White Blood Count 12.6 Red Blood Count 4.50 Hemoglobin 13.4 Hematocrit 40.2 Mean Corpuscular Volume 89.3 Mean Corpuscular Hemoglobin 29.7 Mean Corpuscular Hemoglobin Concent 33.3 Red Cell Distribution Width 14.5 Platelet Count 303 Mean Platelet Volume 9.3 Neutrophils (%) (Auto) 75.7 Lymphocytes (%) (Auto) 13.6 Monocytes (%) (Auto) 8.4 Eosinophils (%) (Auto) 1.6 Basophils (%) (Auto) 0.7 Neutrophils # (Auto) 9.5 Lymphocytes # (Auto) 1.7 Monocytes # (Auto) 1.1 Eosinophils # (Auto) 0.2 Basophils # (Auto) 0.1 CBC Comment DIFF FINAL Differential Comment Blood Urea Nitrogen 4 Creatinine 0.54 Random Glucose 65 Calcium Level 9.1 Sodium Level 137 Potassium Level 3.7 Chloride Level 103 Carbon Dioxide Level 21.9 Anion Gap 12 Estimat Glomerular Filtration Rate 117 Date/Time Source Procedure Growth Status 04/07/17 00:20 Blood Peripheral Aerobic Blood Culture - Final NO GROWTH IN 5 DAYS Complete 04/07/17 00:20 Blood Peripheral Anaerobic Blood Culture - Final NO GROWTH IN 5 DAYS Complete Radiology Last Impressions Pelvis Ultrasound 04/10/17 0000 Signed Impressions: Service Date/Time: Monday, April 10, 2017 21:27 - CONCLUSION: 1. Visualization of a ill-defined complex fluid collection in the central pelvis corresponding to the known diverticular abscess seen on CT. 2. Unremarkable right ovary. 3. Status post hysterectomy. 4. Nonvisualization of the left ovary with no evidence of an adnexal mass. Tim Quinones MD Abdomen/Pelvis CT 04/07/17 0000 Signed Impressions: Service Date/Time: Friday, April 07, 2017 16:27 - CONCLUSION: 1. Irregular diverticular abscess in the deep pelvic cavity and contiguous with the roof of the urinary bladder. A safe drainage path is not clearly visualized. Interventional radiology consultation is pending. 2. Umbilical hernia containing fat and a short segment of small bowel. No obstruction or induration. 3. Small to moderate hiatal hernia again noted. 4. Trace left base atelectasis. Jose Tavares MD Chest X-Ray 04/06/17 [id number] Signed Impressions: Service Date/Time: Friday, April 07, 2017 00:11 - CONCLUSION: No acute abnormality is identified. Jose Martinez MD Cardiovascular: Regular Lungs: Clear Abdomen: Non-distended, Other (ileostomy with output), Post-op tenderness, BS normal Extremities: Perfused Wound Wound : Wound Location: Abdomen Appearance: Clean & Dry Dressing: Dry A/P Problem List: (1) Ileostomy in place ICD Codes: Z93.2 - Ileostomy status Status: Acute (2) Diverticulitis ICD Codes: K57.92 - Diverticulitis of intestine, part unspecified, without perforation or abscess without bleeding Status: Acute (3) S/P ileostomy ICD Codes: Z93.2 - Ileostomy status Status: Acute Assessment and Plan 66-year-old female status post laparoscopic drainage of severe diverticulitis with ileostomy which is functional Plan advance diet Attending Statement NOTE FOR SURGICAL ATTENDING, DR. ANTONIO BRYSON I attest that I had a [id number] encounter with the patient on the same day, and personally performed and documented my assessment and findings in the medical record. The following services were provided during this hospital visit: Chart data review, vital sign assessments/reviewing monitor data Review of consultations notes if present. Medication orders/review and/or management Ordering and/or reviewing lab tests Ordering and/or interpreting/reviewing x-rays and/or diagnostic studies Care of the patient and discussion of the patient with the care team Documentation time To help prompt me to consider important information that might be impacting today's encounter and assessment, information from prior notes written by myself or my colleagues may have been "brought forward/copy and pasted" into today's note. Antonio Bryson MD Apr 14, 2017 11:59
[2017-04-14 12:00] VITALS: BP 122/99; PULSE 115; RESP 18; TEMP 96.8; O2SAT 99
[2017-04-14] MEDS: ENOXAPARIN SODIUM 40 MG/0.4 ML SYRINGE SQ SCH (13:25)
[2017-04-14 16:00] VITALS: BP 135/97; PULSE 110; RESP 17; TEMP 98.2; O2SAT 97
[2017-04-14 20:00] VITALS: BP 143/98; PULSE 97; RESP 20; TEMP 98.6; O2SAT 96
[2017-04-14 23:48] VITALS: BP 136/84; PULSE 89; RESP 18; TEMP 98.9; O2SAT 96
[2017-04-15] MEDS: PIPERACIL-TAZO 4.5 GM PREMIX 100 ML IV SCH ×5 (00:29→23:05)
[2017-04-15] MEDS: ACETAMINOPHEN 1000 MG/100 ML 100 ML IV SCH ×2 (00:29→10:05)
[2017-04-15] MEDS: LEVOTHYROXINE SODIUM 125 MCG TAB PO SCH (05:09)
[2017-04-15 08:00] VITALS: BP 149/97; PULSE 95; RESP 17; TEMP 96.8; O2SAT 97
[2017-04-15] MEDS: SODIUM CHLORIDE 0.9% FLUSH 10 ML FLUSH IV FLUSH SCH ×2 (09:00→20:17)
--- NOTE | 2017-04-15 09:57 | HHI.PR ---
Subjective Remarks Follow-up recurrent acute diverticulitis, failed outpatient therapy 04/13/17-patient seen and examined, currently tolerating current diet without any complication nausea and vomiting. Afebrile 04/14/17-patient seen and examined, that she had episode of nausea and vomiting after taking by mouth as of yesterday. Currently stable. 04/15/17-patient seen and examined, currently on regular diet with patient although did not eat much but tolerated without any complication of nausea and vomiting.Complains of insomnia Objective Vitals Vital Signs Date Time Temp Pulse Resp B/P (MAP) Pulse Ox O2 Delivery O2 Flow Rate FiO2 04/15/17 08:00 96.8 95 17 149/97 (114) 97 04/14/17 23:48 98.9 89 18 136/84 (101) 96 04/14/17 20:00 98.6 97 20 143/98 (113) 96 04/14/17 16:00 98.2 110 17 135/97 (110) 97 04/14/17 12:00 96.8 115 18 122/99 (107) 99 I/O 04/14/17 04/14/17 04/14/17 04/15/17 04/15/17 04/15/17 07:00 15:00 23:00 07:00 15:00 23:00 Intake Total 560 ml 400 ml 1035 ml 880 ml Output Total 1465 ml 120 ml 750 ml 1260 ml Balance -905 ml 280 ml 285 ml -380 ml Intake Oral 360 ml 120 ml 680 ml IV Total 200 ml 400 ml 915 ml 200 ml Stool Total 875 ml 700 ml 1200 ml Emesis 400 ml Drainage Total 190 ml 120 ml 50 ml 60 ml # Voids 2 5 4 Result Diagram: 04/14/1751104/14/17511 Objective Remarks GENERAL: NAD SKIN: Warm and dry. HEAD: Normocephalic. EYES: No scleral icterus. No injection or drainage. NECK: Supple, trachea midline. No JVD or lymphadenopathy. CARDIOVASCULAR: Regular rate and rhythm without murmurs, gallops, or rubs. RESPIRATORY: Breath sounds equal bilaterally. No accessory muscle use. GASTROINTESTINAL: Abdomen soft, non-tender, nondistended. Ileostomy bag in place; PRERNA drain in place MUSCULOSKELETAL: No cyanosis, or edema. BACK: Nontender without obvious deformity. No CVA tenderness. Procedures Status post lap, lap washed out and drain placement 04/11/17 Status post diverting ileostomy placement 04/11/17 A/P Problem List: (1) Abscess of sigmoid colon due to diverticulitis ICD Code: K57.20 - Diverticulitis of large intestine with perforation and abscess without bleeding Status: Acute (2) Leukocytosis ICD Code: D72.829 - Elevated white blood cell count, unspecified (3) Hypokalemia ICD Code: E87.6 - Hypokalemia (4) Hypothyroidism ICD Code: E03.9 - Hypothyroidism, unspecified Assessment and Plan 56-year-old female with Recurrent acute sigmoid diverticulitis - Status post lap, lap washout and drain placement, ileostomy placement - Management per general surgery - Continue with Zosyn. By mouth Cipro Flagyl when discharge - Pain management accordingly with Ofirmev and continue healthy diet - PT eval and treat Hypokalemia - Resolved status post replacement Hypothyroidism - Continue with Synthroid Insomnia Start Restoril PRN HS DVT prop, Lovenox Elias Looney MD Apr 15, 2017 09:57
[2017-04-15] MEDS: PANTOPRAZOLE SOD 40 MG DELAYED RELEASE TAB PO SCH (10:06)
[2017-04-15] MEDS: LORazepam 0.5 MG TAB PO SCH ×2 (10:06→20:17)
[2017-04-15] MEDS: DOCUSATE SODIUM 50 MG/SENNA 8.6 MG TAB PO SCH ×2 (10:06→20:17)
[2017-04-15 12:00] VITALS: BP 136/88; PULSE 95; RESP 16; TEMP 97.2; O2SAT 95
[2017-04-15] MEDS: ENOXAPARIN SODIUM 40 MG/0.4 ML SYRINGE SQ SCH (13:29)
[2017-04-15 16:00] VITALS: BP 121/79; PULSE 106; RESP 16; TEMP 97.6; O2SAT 97
--- NOTE | 2017-04-15 16:01 | HHI.PR ---
cc: Ron Bryson MD Subjective Subjective Notes DAILY PROGRESS NOTE FOR SURGICAL ATTENDING, DR. RON BRYSON Eating regular diet Ambulating to bath room emptying her ileostomy bag Objective Vitals/I&O Vital Signs Date Time Temp Pulse Resp B/P (MAP) Pulse Ox O2 Delivery O2 Flow Rate FiO2 04/15/17 12:00 97.2 95 16 136/88 (104) 95 04/15/17 10:27 2.00 04/12/17 20:10 Nasal Cannula Labs Date/Time Source Procedure Growth Status 04/07/17 00:20 Blood Peripheral Aerobic Blood Culture - Final NO GROWTH IN 5 DAYS Complete 04/07/17 00:20 Blood Peripheral Anaerobic Blood Culture - Final NO GROWTH IN 5 DAYS Complete Radiology Last Impressions Pelvis Ultrasound 04/10/17 0000 Signed Impressions: Service Date/Time: Monday, April 10, 2017 21:27 - CONCLUSION: 1. Visualization of a ill-defined complex fluid collection in the central pelvis corresponding to the known diverticular abscess seen on CT. 2. Unremarkable right ovary. 3. Status post hysterectomy. 4. Nonvisualization of the left ovary with no evidence of an adnexal mass. Tim Quinones MD Abdomen/Pelvis CT 04/07/17 0000 Signed Impressions: Service Date/Time: Friday, April 07, 2017 16:27 - CONCLUSION: 1. Irregular diverticular abscess in the deep pelvic cavity and contiguous with the roof of the urinary bladder. A safe drainage path is not clearly visualized. Interventional radiology consultation is pending. 2. Umbilical hernia containing fat and a short segment of small bowel. No obstruction or induration. 3. Small to moderate hiatal hernia again noted. 4. Trace left base atelectasis. Jose Tavares MD Chest X-Ray 04/06/17 2354 Signed Impressions: Service Date/Time: Friday, April 07, 2017 00:11 - CONCLUSION: No acute abnormality is identified. Jose Martinez MD Cardiovascular: Regular Lungs: Clear Abdomen: Non-distended, Other (PRERNA in place when I stripped the drain cause some discomfort left lower quadrant), Post-op tenderness Wound Wound : Wound Location: Abdomen Appearance: Clean & Dry (ileostomy present with output) A/P Problem List: (1) Ileostomy in place ICD Codes: Z93.2 - Ileostomy status Status: Acute (2) Diverticulitis ICD Codes: K57.92 - Diverticulitis of intestine, part unspecified, without perforation or abscess without bleeding Status: Acute (3) S/P ileostomy ICD Codes: Z93.2 - Ileostomy status Status: Acute Assessment and Plan 66-year-old female status post laparoscopic drainage of severe diverticulitis with ileostomy which is functional Tolerating regular diet Having some draining discomfort Continue IV antibiotics Attending Statement NOTE FOR SURGICAL ATTENDING, DR. RON BRYSON I attest that I had a [id number] encounter with the patient on the same day, and personally performed and documented my assessment and findings in the medical record. The following services were provided during this hospital visit: Chart data review, vital sign assessments/reviewing monitor data Review of consultations notes if present. Medication orders/review and/or management Ordering and/or reviewing lab tests Ordering and/or interpreting/reviewing x-rays and/or diagnostic studies Care of the patient and discussion of the patient with the care team Documentation time To help prompt me to consider important information that might be impacting today's encounter and assessment, information from prior notes written by myself or my colleagues may have been "brought forward/copy and pasted" into today's note. Ron Bryson MD Apr 15, 2017 16:01
[2017-04-15] MEDS: ONDANSETRON HCL 4 MG/2 ML VIAL IVP PRN (16:12)
[2017-04-15] MEDS: MORPHINE SULFATE 4 MG/ML INJ IV PUSH PRN ×2 (16:13→20:17)
[2017-04-15 20:14] VITALS: BP 135/84; PULSE 82; RESP 18; TEMP 98.6; O2SAT 96
[2017-04-15 21:03] VITALS: O2SAT 96
[2017-04-15] MEDS: TEMAZEPAM 15 MG CAP PO PRN (21:37)
[2017-04-16 00:19] VITALS: BP 115/79; PULSE 95; RESP 17; TEMP 97.5; O2SAT 94
[2017-04-16] MEDS: MORPHINE SULFATE 4 MG/ML INJ IV PUSH PRN ×3 (02:25→21:15)
[2017-04-16] MEDS: PIPERACIL-TAZO 4.5 GM PREMIX 100 ML IV SCH ×4 (05:40→23:36)
[2017-04-16] MEDS: LEVOTHYROXINE SODIUM 125 MCG TAB PO SCH (05:40)
[2017-04-16] MEDS: PANTOPRAZOLE SOD 40 MG DELAYED RELEASE TAB PO SCH (08:40)
[2017-04-16] MEDS: SODIUM CHLORIDE 0.9% FLUSH 10 ML FLUSH IV FLUSH SCH ×2 (08:40→21:16)
[2017-04-16] MEDS: DOCUSATE SODIUM 50 MG/SENNA 8.6 MG TAB PO SCH ×2 (08:40→21:10)
[2017-04-16] MEDS: LORazepam 0.5 MG TAB PO SCH ×2 (08:40→21:10)
--- NOTE | 2017-04-16 11:12 | HHI.PR ---
Subjective Remarks Follow-up recurrent acute diverticulitis, failed outpatient therapy 04/13/17-patient seen and examined, currently tolerating current diet without any complication nausea and vomiting. Afebrile 04/14/17-patient seen and examined, that she had episode of nausea and vomiting after taking by mouth as of yesterday. Currently stable. 04/15/17-patient seen and examined, currently on regular diet with patient although did not eat much but tolerated without any complication of nausea and vomiting.Complains of insomnia 04/16/17-patient seen and examined, states she was so much in pain yesterday after attempt to unclog her PRERNA drain by surgery. Able to sleep a few hours last night. Tolerated by mouth however not taking much Objective Vitals Vital Signs Date Time Temp Pulse Resp B/P (MAP) Pulse Ox O2 Delivery O2 Flow Rate FiO2 04/16/17 08:59 18 04/16/17 00:19 97.5 95 17 115/79 (91) 94 04/15/17 21:03 96 Nasal Cannula 2.00 04/15/17 20:14 98.6 82 18 135/84 (101) 96 04/15/17 16:00 97.6 106 16 121/79 (93) 97 04/15/17 12:00 97.2 95 16 136/88 (104) 95 I/O 04/15/17 04/15/17 04/15/17 04/16/17 04/16/17 04/16/17 06:59 14:59 22:59 06:59 14:59 22:59 Intake Total 880 ml 200 ml 1060 ml 780 ml Output Total 1260 ml 1105 ml 400 ml Balance -380 ml 200 ml -45 ml 380 ml Intake Oral 680 ml 960 ml 680 ml IV Total 200 ml 200 ml 100 ml 100 ml Stool Total 1200 ml 1000 ml 400 ml Drainage Total 60 ml 105 ml # Voids 4 5 4 Result Diagram: 04/14/17 0512 04/14/17 0512 Imaging Last Impressions Pelvis Ultrasound 04/10/17 0000 Signed Impressions: Service Date/Time: Monday, April 10, 2017 21:27 - CONCLUSION: 1. Visualization of a ill-defined complex fluid collection in the central pelvis corresponding to the known diverticular abscess seen on CT. 2. Unremarkable right ovary. 3. Status post hysterectomy. 4. Nonvisualization of the left ovary with no evidence of an adnexal mass. Tim Quinones MD Abdomen/Pelvis CT 04/07/17 0000 Signed Impressions: Service Date/Time: Friday, April 07, 2017 16:27 - CONCLUSION: 1. Irregular diverticular abscess in the deep pelvic cavity and contiguous with the roof of the urinary bladder. A safe drainage path is not clearly visualized. Interventional radiology consultation is pending. 2. Umbilical hernia containing fat and a short segment of small bowel. No obstruction or induration. 3. Small to moderate hiatal hernia again noted. 4. Trace left base atelectasis. Jose Tavares MD Chest X-Ray 04/06/17 2354 Signed Impressions: Service Date/Time: Friday, April 07, 2017 00:11 - CONCLUSION: No acute abnormality is identified. Jose Martinez MD Objective Remarks GENERAL: NAD SKIN: Warm and dry. HEAD: Normocephalic. EYES: No scleral icterus. No injection or drainage. NECK: Supple, trachea midline. No JVD or lymphadenopathy. CARDIOVASCULAR: Regular rate and rhythm without murmurs, gallops, or rubs. RESPIRATORY: Breath sounds equal bilaterally. No accessory muscle use. GASTROINTESTINAL: Abdomen soft, non-tender, nondistended. Ileostomy bag in place; PRERNA drain in place MUSCULOSKELETAL: No cyanosis, or edema. BACK: Nontender without obvious deformity. No CVA tenderness. Procedures Status post lap, lap washed out and drain placement 04/11/17 Status post diverting ileostomy placement 04/11/17 A/P Problem List: (1) Abscess of sigmoid colon due to diverticulitis ICD Code: K57.20 - Diverticulitis of large intestine with perforation and abscess without bleeding Status: Acute (2) Leukocytosis ICD Code: D72.829 - Elevated white blood cell count, unspecified (3) Hypokalemia ICD Code: E87.6 - Hypokalemia (4) Hypothyroidism ICD Code: E03.9 - Hypothyroidism, unspecified Assessment and Plan 56-year-old female with Recurrent acute sigmoid diverticulitis - Status post lap, lap washout and drain placement, ileostomy placement - Management per general surgery - Continue with Zosyn. By mouth Cipro Flagyl when discharge - Pain management accordingly with Ofirmev and continue healthy diet - PT eval and treat Hypokalemia - Resolved status post replacement Hypothyroidism - Continue with Synthroid Insomnia Continue Restoril PRN HS DVT prop, Lovenox Elias Looney MD Apr 16, 2017 11:12
[2017-04-16 12:00] VITALS: BP 107/71; PULSE 90; RESP 18; TEMP 97.1; O2SAT 94
--- NOTE | 2017-04-16 12:57 | HHI.PR ---
Subjective Subjective Notes Resting in bed Had uneventful night last night Tolerating small meals Objective Vitals/I&O Vital Signs Date Time Temp Pulse Resp B/P (MAP) Pulse Ox O2 Delivery O2 Flow Rate FiO2 04/16/17 08:59 18 04/16/17 00:19 97.5 95 115/79 (91) 94 04/15/17 21:03 Nasal Cannula 2.00 Labs Date/Time Source Procedure Growth Status 04/07/17 00:20 Blood Peripheral Aerobic Blood Culture - Final NO GROWTH IN 5 DAYS Complete 04/07/17 00:20 Blood Peripheral Anaerobic Blood Culture - Final NO GROWTH IN 5 DAYS Complete Radiology Last Impressions Pelvis Ultrasound 04/10/17 0000 Signed Impressions: Service Date/Time: Monday, April 10, 2017 21:27 - CONCLUSION: 1. Visualization of a ill-defined complex fluid collection in the central pelvis corresponding to the known diverticular abscess seen on CT. 2. Unremarkable right ovary. 3. Status post hysterectomy. 4. Nonvisualization of the left ovary with no evidence of an adnexal mass. Tim Quinones MD Abdomen/Pelvis CT 04/07/17 0000 Signed Impressions: Service Date/Time: Friday, April 07, 2017 16:27 - CONCLUSION: 1. Irregular diverticular abscess in the deep pelvic cavity and contiguous with the roof of the urinary bladder. A safe drainage path is not clearly visualized. Interventional radiology consultation is pending. 2. Umbilical hernia containing fat and a short segment of small bowel. No obstruction or induration. 3. Small to moderate hiatal hernia again noted. 4. Trace left base atelectasis. Jose Tavares MD Chest X-Ray 04/06/17 2513 Signed Impressions: Service Date/Time: Friday, April 07, 2017 00:11 - CONCLUSION: No acute abnormality is identified. Jose Martinez MD Cardiovascular: Regular Lungs: Clear Abdomen: Other (lap sites c/d/i; PRERNA with serous drainage; ileostomy with stool output; stoma pink ) Extremities: No edema A/P Problem List: (1) Ileostomy in place ICD Codes: Z93.2 - Ileostomy status Status: Acute (2) Diverticulitis ICD Codes: K57.92 - Diverticulitis of intestine, part unspecified, without perforation or abscess without bleeding Status: Acute (3) S/P ileostomy ICD Codes: Z93.2 - Ileostomy status Status: Acute Assessment and Plan 56 year old female with recurrent acute diverticulitis; failed outpatient treatment; POD5 dx lap; ileostomy; drain placement -Regular diet -OOB and mobilize -Continue Zosyn --likely transition to PO antibiotics in the AM -IS -Lovenox -PT -Pain control---encouraged the use of PO pain medications and use IV morphine for breakthrough pain Attending Statement Patient seen at bedside doing better still with some pain transition to po abx ambulate possible d/c toward end of week Attestation The exam, history, and the medical decision-making described in the above note were completed with the assistance of the mid-level provider. I reviewed and agree with the findings presented. I attest that I had a [id number] encounter with the patient on the same day, and personally performed and documented my assessment and findings in the medical record. Haley Soto Apr 16, 2017 12:57 Shaw Mae MD Apr 19, 2017 08:44
--- NOTE | 2017-04-16 13:01 | PD.WCN.NOT ---
Wound Consult Description: Consult for NEW OSTOMY TEACHING of new ileostomy (04/11/17) per SANJIV Soto Communicated with: Patient Recommendation: Empty pouch when 1/3-1/2 full Change wafer every 3-5 days and PRN before leaks occur Additional Information: Patient seen on [address] [place] [address] for ostomy teaching, assessment, and ostomy appliance change. Ostomy Type: Ileostomy (loop) Surgeon: Shaw Mae MD Date of Surgery: Apr 11, 2017 Complete: Starter kit (sent via [employer]), Education materials (at bedside), Rx (left on chart), Other (supplies ordered from [facility] for patient to go home with at discharge) Educated patient on: Changing the appliance every 3-5 days and PRN before leaks occur, and when experiencing itching sensations underneath appliance meaning the effluent (stool ) is beginning to touch the skin underneath the barrier (wafer). 1. Remove barrier with adhesive removal wipes 2. Assess skin for breakdown 3. Cleanse peristomal skin with water only 4. Allow skin to dry thoroughly 5. Skin prep peristomal skin if desired 6. Use stoma paste if antoni in still in place and sutured down 7. Apply new barrier cut to fit stoma size 1 3/4" round if antoni is still in place OR: 8. Apply new moldable 2 1/4" barrier stretched to fit around stoma and attach pouch 9. Close the end of the pouch 10. Warm appliance by placing hands over barrier and pouch for a few minutes to hep polymers adhere to skin Additional information Stoma on right abdomen is red, round, moist, natoni in place, measuring 1 3/4" with two lumens noted @ 3 and 9 o'clock. Coloplast cut to fit barrier was used in the changing of the appliance today with assistance from patient. Kelly Ríos [facility] Apr 16, 2017 13:01
[2017-04-16 16:00] VITALS: BP 121/74; PULSE 101; RESP 16; TEMP 97.1; O2SAT 95
[2017-04-16] MEDS: ENOXAPARIN SODIUM 40 MG/0.4 ML SYRINGE SQ SCH (16:25)
[2017-04-16 20:00] VITALS: BP 122/79; PULSE 101; RESP 18; TEMP 98.4; O2SAT 95
[2017-04-16] MEDS: ONDANSETRON HCL 4 MG/2 ML VIAL IVP PRN (21:14)
[2017-04-16] MEDS: TEMAZEPAM 15 MG CAP PO PRN (23:36)
[2017-04-17] VITALS: BP 111/73; PULSE 97; RESP 18; TEMP 97.5; O2SAT 94
[2017-04-17] MEDS: ACETAMINOPHEN/HYDROcodone 325 MG/5 MG TAB PO PRN (01:55)
[2017-04-17] MEDS: PIPERACIL-TAZO 4.5 GM PREMIX 100 ML IV SCH ×2 (05:04→12:01)
[2017-04-17] MEDS: MORPHINE SULFATE 4 MG/ML INJ IV PUSH PRN (05:04)
[2017-04-17] MEDS: LEVOTHYROXINE SODIUM 125 MCG TAB PO SCH (05:08)
[2017-04-17 08:00] VITALS: BP 92/64; PULSE 82; RESP 18; TEMP 97.9; O2SAT 94
[2017-04-17] MEDS: DOCUSATE SODIUM 50 MG/SENNA 8.6 MG TAB PO SCH ×2 (09:00→20:39)
[2017-04-17] MEDS: PANTOPRAZOLE SOD 40 MG DELAYED RELEASE TAB PO SCH (09:37)
[2017-04-17] MEDS: SODIUM CHLORIDE 0.9% FLUSH 10 ML FLUSH IV FLUSH SCH ×2 (09:37→20:41)
[2017-04-17] MEDS: LORazepam 0.5 MG TAB PO SCH ×2 (09:37→20:39)
--- NOTE | 2017-04-17 10:34 | HHI.PR ---
Subjective Remarks Follow-up recurrent acute diverticulitis, failed outpatient therapy 04/13/17-patient seen and examined, currently tolerating current diet without any complication nausea and vomiting. Afebrile 04/14/17-patient seen and examined, that she had episode of nausea and vomiting after taking by mouth as of yesterday. Currently stable. 04/15/17-patient seen and examined, currently on regular diet with patient although did not eat much but tolerated without any complication of nausea and vomiting.Complains of insomnia 04/16/17-patient seen and examined, states she was so much in pain yesterday after attempt to unclog her PRERNA drain by surgery. Able to sleep a few hours last night. Tolerated by mouth however not taking much 04/17/17-patient seen and examined, states she had some abdominal pain last night otherwise stable this AM. Objective Vitals Vital Signs Date Time Temp Pulse Resp B/P (MAP) Pulse Ox O2 Delivery O2 Flow Rate FiO2 04/17/17 08:00 97.9 82 18 92/64 (73) 94 04/17/17 00:00 97.5 97 18 111/73 (86) 94 04/16/17 20:00 98.4 101 18 122/79 (93) 95 04/16/17 16:00 97.1 101 16 121/74 (90) 95 04/16/17 12:00 97.1 90 18 107/71 (83) 94 I/O 04/16/17 04/16/17 04/16/17 04/17/17 04/17/17 04/17/17 07:00 15:00 23:00 07:00 15:00 23:00 Intake Total 780 ml 680 ml 200 ml Output Total 400 ml 610 ml 60 ml Balance 380 ml 70 ml 140 ml Intake Oral 680 ml 680 ml IV Total 100 ml 200 ml Stool Total 400 ml 550 ml Drainage Total 60 ml 60 ml # Voids 4 3 3 Result Diagram: 04/14/1751104/14/17511 Objective Remarks GENERAL: NAD SKIN: Warm and dry. HEAD: Normocephalic. EYES: No scleral icterus. No injection or drainage. NECK: Supple, trachea midline. No JVD or lymphadenopathy. CARDIOVASCULAR: Regular rate and rhythm without murmurs, gallops, or rubs. RESPIRATORY: Breath sounds equal bilaterally. No accessory muscle use. GASTROINTESTINAL: Abdomen soft, non-tender, nondistended. Ileostomy bag in place; PRERNA drain in place MUSCULOSKELETAL: No cyanosis, or edema. BACK: Nontender without obvious deformity. No CVA tenderness. Procedures Status post lap, lap washed out and drain placement 04/11/17 Status post diverting ileostomy placement 04/11/17 A/P Problem List: (1) Abscess of sigmoid colon due to diverticulitis ICD Code: K57.20 - Diverticulitis of large intestine with perforation and abscess without bleeding Status: Acute (2) Leukocytosis ICD Code: D72.829 - Elevated white blood cell count, unspecified (3) Hypokalemia ICD Code: E87.6 - Hypokalemia (4) Hypothyroidism ICD Code: E03.9 - Hypothyroidism, unspecified Assessment and Plan 56-year-old female with Recurrent acute sigmoid diverticulitis - Status post lap, lap washout and drain placement, ileostomy placement - Management per general surgery - Continue with Zosyn. Hopefully to switch to PO Cipro Flagyl today - Pain management accordingly with Ofirmev and continue healthy diet - PT eval and treat Hypokalemia - Resolved status post replacement Hypothyroidism - Continue with Synthroid Insomnia Continue Restoril PRN HS DVT prop, Lovenox Elias Looney MD Apr 17, 2017 10:34
--- NOTE | 2017-04-17 10:50 | HHI.FF ---
Face to Face Verification Diagnosis: (1) Abscess of sigmoid colon due to diverticulitis (2) Diverticulitis (3) Ileostomy in place (4) S/P ileostomy Home Health Nursing Order: Wound care and dressing changes Instructions: New ileostomy--continues teaching and management PRERNA ---routine care I have seen patient Genesis James on 04/17/17. My clinical findings support the need for the requested home health care services because: Limited ability to care for self High risk of falls I certify that my clinical findings support that this patient is homebound because: Post-op weakness Haley Soto [facility] Apr 17, 2017 10:50
[2017-04-17 12:00] VITALS: BP 126/72; PULSE 83; RESP 16; TEMP 96.6; O2SAT 96
[2017-04-17] MEDS ORDERED: LACTCHW3 CHEW (12:32)
[2017-04-17] MEDS ORDERED: PERI PO (12:32)
--- NOTE | 2017-04-17 12:34 | HHI.PR ---
Subjective Subjective Notes Resting in bed Had some pain in the LUQ last night Objective Vitals/I&O Vital Signs Date Time Temp Pulse Resp B/P (MAP) Pulse Ox O2 Delivery O2 Flow Rate FiO2 04/17/17 08:00 97.9 82 18 92/64 (73) 94 04/15/17 21:03 Nasal Cannula 2.00 Labs Date/Time Source Procedure Growth Status 04/07/17 00:20 Blood Peripheral Aerobic Blood Culture - Final NO GROWTH IN 5 DAYS Complete 04/07/17 00:20 Blood Peripheral Anaerobic Blood Culture - Final NO GROWTH IN 5 DAYS Complete Radiology Last Impressions Pelvis Ultrasound 04/10/17 0000 Signed Impressions: Service Date/Time: Monday, April 10, 2017 21:27 - CONCLUSION: 1. Visualization of a ill-defined complex fluid collection in the central pelvis corresponding to the known diverticular abscess seen on CT. 2. Unremarkable right ovary. 3. Status post hysterectomy. 4. Nonvisualization of the left ovary with no evidence of an adnexal mass. Tim Quinones MD Abdomen/Pelvis CT 04/07/17 0000 Signed Impressions: Service Date/Time: Friday, April 07, 2017 16:27 - CONCLUSION: 1. Irregular diverticular abscess in the deep pelvic cavity and contiguous with the roof of the urinary bladder. A safe drainage path is not clearly visualized. Interventional radiology consultation is pending. 2. Umbilical hernia containing fat and a short segment of small bowel. No obstruction or induration. 3. Small to moderate hiatal hernia again noted. 4. Trace left base atelectasis. Jose Tavares MD Chest X-Ray 04/06/17 1075 Signed Impressions: Service Date/Time: Friday, April 07, 2017 00:11 - CONCLUSION: No acute abnormality is identified. Jose Martinez MD Cardiovascular: Regular Lungs: Clear Abdomen: Non-distended, Other (lap sites c/d/i; PRERNA with serosanguineous drainage; ileostomy---stoma pink; stool in appliace ) Extremities: No edema A/P Problem List: (1) Ileostomy in place ICD Codes: Z93.2 - Ileostomy status Status: Acute (2) Diverticulitis ICD Codes: K57.92 - Diverticulitis of intestine, part unspecified, without perforation or abscess without bleeding Status: Acute (3) S/P ileostomy ICD Codes: Z93.2 - Ileostomy status Status: Acute Assessment and Plan 56 year old female with recurrent acute diverticulitis; failed outpatient treatment; POD5 dx lap; ileostomy; drain placement -Regular diet -OOB and mobilize -Labs today -Transition to PO antibiotics -Transition to PO pain mediations -IS -Lovenox -PT -CM consult for [facility]---face to face complete -Likely home in 24-48 hours Attending Statement Patient seen at bedside doing better still with pain po meds d/c when pain controlled Attestation The exam, history, and the medical decision-making described in the above note were completed with the assistance of the mid-level provider. I reviewed and agree with the findings presented. I attest that I had a [id number] encounter with the patient on the same day, and personally performed and documented my assessment and findings in the medical record. Problem Qualifiers (1) Diverticulitis: Qualified Codes: K57.80 - Diverticulitis of intestine, part unspecified, with perforation and abscess without bleeding Haley Soto Apr 17, 2017 12:34 Shaw Mae MD Apr 19, 2017 23:09
--- NOTE | 2017-04-17 12:34 | HHI.DS ---
Discharge Summary Admission Date Apr 07, 2017 at 01:03 Discharge Date: Apr 19, 2017 Admitting Diagnosis acute diverticulitis w abscess (1) Abscess of sigmoid colon due to diverticulitis ICD Code: K57.20 - Diverticulitis of large intestine with perforation and abscess without bleeding Status: Acute (2) Leukocytosis ICD Code: D72.829 - Elevated white blood cell count, unspecified Status: Resolved (3) Hypokalemia ICD Code: E87.6 - Hypokalemia (4) Hypothyroidism ICD Code: E03.9 - Hypothyroidism, unspecified Procedures Status post lap, lap washed out and drain placement 04/11/17 Status post diverting ileostomy placement 04/11/17 Brief History - From Admission Written by Dawn Bui, acting as scribe for Dr. Martinez on 04/07/17 at 14:37. Mrs. James is a 56-year-old female patient with a known medical history of diverticulitis, hypothyroidism and GERD who presented to the [place] ED with continued abdominal pain. Patient states she was admitted to the hospital in February for diverticulitis and placed on IV antibiotics during hospitalization and was discharged on PO antibiotics, admitting to finishing the course yesterday. Patient states that some improvement was seen with intermittent continued abdominal pain but noticed the past several days she has developed a worsening pain. The pain "felt like she was giving ", rated a 10/10 on pain scale, located in her lower abdomen. Denies any recent fever, chills. Does admit to nausea and vomiting, has been unable to keep anything down this morning. Denies any recent dysuria. Admits to a few bouts of diarrhea. Denies any hematochezia. A CT was performed showing diverticular abscess. Last colonoscopy was in 2014 which was reportedly negative. CBC/BMP: 04/14/17 0512 04/14/17 0512 Imaging Last Impressions Pelvis Ultrasound 04/10/17 0000 Signed Impressions: Service Date/Time: Monday, April 10, 2017 21:27 - CONCLUSION: 1. Visualization of a ill-defined complex fluid collection in the central pelvis corresponding to the known diverticular abscess seen on CT. 2. Unremarkable right ovary. 3. Status post hysterectomy. 4. Nonvisualization of the left ovary with no evidence of an adnexal mass. Tim Quinones MD Abdomen/Pelvis CT 04/07/17 0000 Signed Impressions: Service Date/Time: Friday, April 07, 2017 16:27 - CONCLUSION: 1. Irregular diverticular abscess in the deep pelvic cavity and contiguous with the roof of the urinary bladder. A safe drainage path is not clearly visualized. Interventional radiology consultation is pending. 2. Umbilical hernia containing fat and a short segment of small bowel. No obstruction or induration. 3. Small to moderate hiatal hernia again noted. 4. Trace left base atelectasis. Jose Tavares MD Chest X-Ray 04/06/17 2354 Signed Impressions: Service Date/Time: Friday, April 07, 2017 00:11 - CONCLUSION: No acute abnormality is identified. Jose Martinez MD PE at Discharge GENERAL: NAD SKIN: Warm and dry. HEAD: Normocephalic. EYES: No scleral icterus. No injection or drainage. NECK: Supple, trachea midline. No JVD or lymphadenopathy. CARDIOVASCULAR: Regular rate and rhythm without murmurs, gallops, or rubs. RESPIRATORY: Breath sounds equal bilaterally. No accessory muscle use. GASTROINTESTINAL: Abdomen soft, non-tender, nondistended. Ileostomy bag in place; PRERNA drain in place MUSCULOSKELETAL: No cyanosis, or edema. BACK: Nontender without obvious deformity. No CVA tenderness. Hospital Course Patient admitted secondary to Recurrent acute sigmoid diverticulitis for which Gen. surgery was consulted and she underwent lap, lap washout and drain placement, ileostomy placement. Patient diet was advanced accordingly and pain management was provided adequately. She was treated with IV antibiotics however switch to by mouth Cipro and Flagyl prior to discharge. All electrolyte abnormalities were corrected accordingly. Physical therapy was consulted. DVT and GI prophylaxis were provided. She was continued treatment for other chronic medical conditions. Prior to discharge, patient's condition improved vitals remained stable. Pt Condition on Discharge: Stable Discharge Disposition: Disch w/ Home Health Serv Discharge Time: > 30 minutes Discharge Instructions DIET: Follow Instructions for: Colostomy/Ileostomy Activities you can perform: Regular-No Restrictions Follow up Referrals: HOME HELP AIDE - 3 Weeks with Geni Bucio MD PCP Follow-up - 1 Week Surgical - 04/20/17 with Shaw Mae MD Appt set for SundayApr 20 at 10: 30AM with Dr. Mae New Orders: CT Abdomen W IV Contrast(Rout) - 04/27/17 New Medications: Hydrocodone-Acetaminophen (Walker) 5 Mg-325 Mg Tab 1-2 TAB PO Q4H PRN for PAIN for 14 Days, #20 TAB 0 Refills Lactobacillus Acidophilus (Lactinex) 1 Chew 1 TAB CHEW DAILY for Nutritional Supplement, #30 TAB 0 Refills Sennosides-Docusate Sodium (Gnp Senna Plus 8.6-50 mg) 8.6 Mg-50 Mg Tab 1 TAB PO BID for Prevent Constipation, #20 TAB Continued Medications: Ciprofloxacin (Cipro) 500 Mg Tab 500 MG PO BID for Infection, #14 TAB 0 Refills (This prescription has been renewed) Diclofenac Sodium DR (Diclofenac Sodium DR) 50 Mg Tabdr 50 MG PO BID, TAB 0 Refills Levothyroxine (Levothyroxine) 125 Mcg Tab 125 MCG PO DAILY for Thyroid, TAB 0 Refills Lorazepam (Lorazepam) 0.5 Mg Tab 0.5 MG PO BID, TAB 0 Refills Metronidazole (Metronidazole) 500 Mg Tab 500 MG PO TID for Infection, #21 TAB 0 Refills (This prescription has been renewed) Omeprazole (Omeprazole) 40 Mg Cap 40 MG PO DAILY, CAP 0 Refills Elias Looney MD Apr 17, 2017 12:34
[2017-04-17] MEDS: ENOXAPARIN SODIUM 40 MG/0.4 ML SYRINGE SQ SCH (14:55)
[2017-04-17] MEDS: metroNIDAZOLE 500 MG TAB PO SCH ×2 (14:55→20:40)
--- NOTE | 2017-04-17 15:55 | PD.WCN.NOT ---
Wound Consult Description: Consult for NEW OSTOMY TEACHING of new ileostomy (04/11/17) per SANJIV Soto Communicated with: Patient Recommendation: Empty pouch when 1/3-1/2 full Change wafer every 3-5 days and PRN before leaks occur Additional Information: Patient seen on [address] [place] [address] for ostomy assessment and teaching. Ostomy Type: Ileostomy (loop) Surgeon: Shaw Mae MD Date of Surgery: Apr 11, 2017 Complete: Starter kit (sent via [employer]), Education materials (at bedside), Rx (left on chart), Other (supplies ordered from [facility] for patient to go home with at discharge) Educated patient on: When to change appliance Appliances available in patient room are one piece cut to fit, 2 piece moldable , and 2 piece cut to fit Information regarding all the appliances in patient room given Additional information Patient states having a bad night last night with pain and not going home yet. Patient states that she has been emptying her pouch and getting more comfortable with it. Appliance is noted to be intact on right side abdomen with loop ileostomy being red, round, moist, moderately protruding, functioning with dark green effluent noted in pouch, with antoni still in place. Stoma is measuring 1 3/4" with Coloplast cut to fit appliance. Kelly Ríos [facility] Apr 17, 2017 15:55
[2017-04-17 16:00] VITALS: BP 118/74; PULSE 98; RESP 16; TEMP 97.8; O2SAT 93
[2017-04-17 16:35] LABS: AUTOMATED NEUTROPHIL # 7.1 TH/MM3 (1.8-7.7); BASOPHIL # 0.1 TH/MM3 (0-0.2); BASOPHIL % 0.7 % (0.0-2.0); EOSINOPHIL # 0.3 TH/MM3 (0-0.4); EOSINOPHIL % 3.2 % (0.0-4.0); HEMATOCRIT 41.1 % (35.0-46.0); HEMO FLAGS DIFF FINAL; LYMPH % 14.2 % (9.0-44.0); LYMPHOCYTE # 1.4 TH/MM3 (1.0-4.8); MEAN CELL VOLUME 89.1 FL (80.0-100.0); MEAN CORPUSCULAR HEMOGLOBIN 29.6 PG (27.0-34.0); MEAN CORPUSCULAR HGB CONC 33.2 % (32.0-36.0); MONO % 8.1 % (0.0-8.0); NEUT % 73.8 % (16.0-70.0); PLATELET COUNT 339 TH/MM3 (150-450); RED BLOOD COUNT 4.62 MIL/MM3 (4.00-5.30); RED CELL DISTRIBUTION WIDTH 14.6 % (11.6-17.2); WHITE BLOOD COUNT 9.5 TH/MM3 (4.0-11.0)
[2017-04-17 16:58] LABS: POTASSIUM 2.9 MEQ/L (3.5-5.1)
[2017-04-17] MEDS ORDERED: POTASSIUM CHLORIDE 10 MEQ CONTROLLED RELEASE TAB PO SCH (17:15)
[2017-04-17] MEDS: ONDANSETRON HCL 4 MG/2 ML VIAL IVP PRN ×2 (17:39→20:35)
[2017-04-17 20:00] VITALS: BP 125/79; PULSE 109; RESP 20; TEMP 97.7; O2SAT 97
[2017-04-17] MEDS: CIPROFLOXACIN 500 MG TAB PO SCH (20:39)
[2017-04-17] MEDS: TEMAZEPAM 15 MG CAP PO PRN (20:47)
[2017-04-18] VITALS: BP 115/78; PULSE 98; RESP 20; TEMP 98.4; O2SAT 94
[2017-04-18] MEDS: MORPHINE SULFATE 4 MG/ML INJ IV PUSH PRN (02:52)
[2017-04-18] MEDS: LEVOTHYROXINE SODIUM 125 MCG TAB PO SCH (04:57)
[2017-04-18] MEDS: metroNIDAZOLE 500 MG TAB PO SCH ×3 (04:57→20:38)
[2017-04-18 08:00] VITALS: BP 118/69; PULSE 85; RESP 18; TEMP 96.9; O2SAT 95
[2017-04-18] MEDS: CIPROFLOXACIN 500 MG TAB PO SCH ×2 (08:10→20:38)
[2017-04-18] MEDS: SODIUM CHLORIDE 0.9% FLUSH 10 ML FLUSH IV FLUSH SCH ×2 (08:10→20:40)
[2017-04-18] MEDS: LORazepam 0.5 MG TAB PO SCH ×2 (08:10→20:38)
[2017-04-18] MEDS: ACETAMINOPHEN/HYDROcodone 325 MG/5 MG TAB PO PRN ×2 (08:10→14:10)
[2017-04-18] MEDS: PANTOPRAZOLE SOD 40 MG DELAYED RELEASE TAB PO SCH (08:10)
[2017-04-18] MEDS: DOCUSATE SODIUM 50 MG/SENNA 8.6 MG TAB PO SCH ×2 (08:13→20:38)
--- NOTE | 2017-04-18 10:59 | HHI.PR ---
Subjective Remarks Follow-up recurrent acute diverticulitis, failed outpatient therapy 04/13/17-patient seen and examined, currently tolerating current diet without any complication nausea and vomiting. Afebrile 04/14/17-patient seen and examined, that she had episode of nausea and vomiting after taking by mouth as of yesterday. Currently stable. 04/15/17-patient seen and examined, currently on regular diet with patient although did not eat much but tolerated without any complication of nausea and vomiting.Complains of insomnia 04/16/17-patient seen and examined, states she was so much in pain yesterday after attempt to unclog her PRERNA drain by surgery. Able to sleep a few hours last night. Tolerated by mouth however not taking much 04/17/17-patient seen and examined, states she had some abdominal pain last night otherwise stable this AM. 04/18/17-patient seen and examined, abdominal pain much more tolerable today. No acute event overnight. Case discussed with general surgery and recommended watching patient 1 more day Objective Vitals Vital Signs Date Time Temp Pulse Resp B/P (MAP) Pulse Ox O2 Delivery O2 Flow Rate FiO2 04/18/17 08:00 96.9 85 18 118/69 (85) 95 04/18/17 00:00 98.4 98 20 115/78 (90) 94 04/17/17 20:00 97.7 109 20 125/79 (94) 97 04/17/17 16:00 97.8 98 16 118/74 (89) 93 04/17/17 12:00 96.6 83 16 126/72 (90) 96 I/O 04/17/17 04/17/17 04/17/17 04/18/17 04/18/17 04/18/17 07:00 15:00 23:00 07:00 15:00 23:00 Intake Total 200 ml 720 ml Output Total 60 ml 630 ml 300 ml Balance 140 ml 90 ml -300 ml Intake Oral 620 ml IV Total 200 ml 100 ml Stool Total 600 ml 300 ml Drainage Total 60 ml 30 ml 0 ml # Voids 3 3 2 Result Diagram: 04/17/17 1553 04/17/17 1553 Objective Remarks GENERAL: NAD SKIN: Warm and dry. HEAD: Normocephalic. EYES: No scleral icterus. No injection or drainage. NECK: Supple, trachea midline. No JVD or lymphadenopathy. CARDIOVASCULAR: Regular rate and rhythm without murmurs, gallops, or rubs. RESPIRATORY: Breath sounds equal bilaterally. No accessory muscle use. GASTROINTESTINAL: Abdomen soft, non-tender, nondistended. Ileostomy bag in place; PRERNA drain in place MUSCULOSKELETAL: No cyanosis, or edema. BACK: Nontender without obvious deformity. No CVA tenderness. Procedures Status post lap, lap washed out and drain placement 04/11/17 Status post diverting ileostomy placement 04/11/17 A/P Problem List: (1) Abscess of sigmoid colon due to diverticulitis ICD Code: K57.20 - Diverticulitis of large intestine with perforation and abscess without bleeding Status: Acute (2) Leukocytosis ICD Code: D72.829 - Elevated white blood cell count, unspecified (3) Hypokalemia ICD Code: E87.6 - Hypokalemia (4) Hypothyroidism ICD Code: E03.9 - Hypothyroidism, unspecified Assessment and Plan 56-year-old female with Recurrent acute sigmoid diverticulitis - Status post lap, lap washout and drain placement, ileostomy placement - Management per general surgery - s/p Zosyn. currently on PO Cipro Flagyl - Pain management accordingly with Ofirmev and continue healthy diet - PT eval and treat Hypokalemia - Resolved status post replacement Hypothyroidism - Continue with Synthroid Insomnia Continue Restoril PRN HS DVT prop, Lovenox Discharge Planning Likely discharge within next 24 hours Elias Looney MD Apr 18, 2017 10:59
[2017-04-18 12:00] VITALS: BP 117/73; PULSE 92; RESP 17; TEMP 96.8; O2SAT 94
--- NOTE | 2017-04-18 12:20 | PD.WCN.NOT ---
Wound Consult Description: Consult for NEW OSTOMY TEACHING of new ileostomy (04/11/17) per SANJIV Soto Communicated with: Patient Recommendation: Empty pouch when 1/3-1/2 full Change wafer every 3-5 days and PRN before leaks occur Additional Information: Patient seen on [address] [place] [address] for ostomy assessment and teaching. Ostomy Type: Ileostomy (loop) Surgeon: Shaw Mae MD Date of Surgery: Apr 11, 2017 Complete: Starter kit (sent via [employer]), Education materials (at bedside), Rx (left on chart), Other (supplies ordered from [facility] for patient to go home with at discharge) Educated patient on: Changing appliance tomorrow before dc. Additional information Patient seen on [address] [place] [address] for ostomy assessment and teaching. Patient was just finished showering and ambulating in hallway when seen in her room. Patient states that she has been emptying the pouch and would like to change the appliance tomorrow by herself with scientific writer available if needed. Ostomy appliance is intact and noted without leaks. Stoma is viable and functioning with soft green effluent noted in pouch. Kelly R[facility]os [facility] Apr 18, 2017 12:20
--- NOTE | 2017-04-18 13:07 | HHI.PR ---
Subjective Subjective Notes Resting in bed Had some mild pain overnight but pain medications help Objective Vitals/I&O Vital Signs Date Time Temp Pulse Resp B/P (MAP) Pulse Ox O2 Delivery O2 Flow Rate FiO2 04/18/17 12:00 96.8 92 17 117/73 (88) 94 04/15/17 21:03 Nasal Cannula 2.00 Labs Laboratory Tests Test 04/17/17 15:53 White Blood Count 9.5 Red Blood Count 4.62 Hemoglobin 13.7 Hematocrit 41.1 Mean Corpuscular Volume 89.1 Mean Corpuscular Hemoglobin 29.6 Mean Corpuscular Hemoglobin Concent 33.2 Red Cell Distribution Width 14.6 Platelet Count 339 Mean Platelet Volume 9.1 Neutrophils (%) (Auto) 73.8 Lymphocytes (%) (Auto) 14.2 Monocytes (%) (Auto) 8.1 Eosinophils (%) (Auto) 3.2 Basophils (%) (Auto) 0.7 Neutrophils # (Auto) 7.1 Lymphocytes # (Auto) 1.4 Monocytes # (Auto) 0.8 Eosinophils # (Auto) 0.3 Basophils # (Auto) 0.1 CBC Comment DIFF FINAL Differential Comment Blood Urea Nitrogen 17 Creatinine 0.78 Random Glucose 139 Calcium Level 8.9 Sodium Level 140 Potassium Level 2.9 Chloride Level 103 Carbon Dioxide Level 28.0 Anion Gap 9 Estimat Glomerular Filtration Rate 76 Date/Time Source Procedure Growth Status 04/07/17 00:20 Blood Peripheral Aerobic Blood Culture - Final NO GROWTH IN 5 DAYS Complete 04/07/17 00:20 Blood Peripheral Anaerobic Blood Culture - Final NO GROWTH IN 5 DAYS Complete Radiology Last Impressions Pelvis Ultrasound 04/10/17 0000 Signed Impressions: Service Date/Time: Monday, April 10, 2017 21:27 - CONCLUSION: 1. Visualization of a ill-defined complex fluid collection in the central pelvis corresponding to the known diverticular abscess seen on CT. 2. Unremarkable right ovary. 3. Status post hysterectomy. 4. Nonvisualization of the left ovary with no evidence of an adnexal mass. Tim Quinones MD Abdomen/Pelvis CT 04/07/17 0000 Signed Impressions: Service Date/Time: Friday, April 07, 2017 16:27 - CONCLUSION: 1. Irregular diverticular abscess in the deep pelvic cavity and contiguous with the roof of the urinary bladder. A safe drainage path is not clearly visualized. Interventional radiology consultation is pending. 2. Umbilical hernia containing fat and a short segment of small bowel. No obstruction or induration. 3. Small to moderate hiatal hernia again noted. 4. Trace left base atelectasis. Jose Tavares MD Chest X-Ray 04/06/17 9584 Signed Impressions: Service Date/Time: Friday, April 07, 2017 00:11 - CONCLUSION: No acute abnormality is identified. Jose Martinez MD Cardiovascular: Regular Lungs: Clear Abdomen: Other (lap sites c/d/i; PRERNA with serosanguineous drainage; ileostomy in place with pink stoma--- liquid stool in bag ) Extremities: No edema A/P Problem List: (1) Ileostomy in place ICD Codes: Z93.2 - Ileostomy status Status: Acute (2) Diverticulitis ICD Codes: K57.92 - Diverticulitis of intestine, part unspecified, without perforation or abscess without bleeding Status: Acute (3) S/P ileostomy ICD Codes: Z93.2 - Ileostomy status Status: Acute Assessment and Plan 56 year old female with recurrent acute diverticulitis; failed outpatient treatment; POD6 dx lap; ileostomy; drain placement -Regular diet -OOB and mobilize -Awaiting potassium level today ---replaced last night -Transition to PO antibiotics -Transition to PO pain mediations -IS -Lovenox -PT -CM consult for [facility]---face to face complete -Will get an outpatient CT scan in about a week -Likely home in 24-48 hours Attending Statement patient seen at bedside transition to po pt doing better d/c planning ostomy care Attestation The exam, history, and the medical decision-making described in the above note were completed with the assistance of the mid-level provider. I reviewed and agree with the findings presented. I attest that I had a [id number] encounter with the patient on the same day, and personally performed and documented my assessment and findings in the medical record. Problem Qualifiers (1) Diverticulitis: Qualified Codes: K57.80 - Diverticulitis of intestine, part unspecified, with perforation and abscess without bleeding Haley Soto Apr 18, 2017 13:07 Shaw Mae MD Apr 22, 2017 11:31
[2017-04-18] MEDS: ENOXAPARIN SODIUM 40 MG/0.4 ML SYRINGE SQ SCH (14:10)
[2017-04-18 16:00] VITALS: BP 121/82; PULSE 86; RESP 16; TEMP 96.2; O2SAT 96
[2017-04-18 20:27] VITALS: BP 126/82; PULSE 82; RESP 18; TEMP 96.7; O2SAT 95
[2017-04-18] MEDS: TEMAZEPAM 15 MG CAP PO PRN (20:37)
[2017-04-19 00:27] VITALS: BP 121/81; PULSE 95; RESP 20; TEMP 98; O2SAT 97
[2017-04-19] MEDS: ACETAMINOPHEN/HYDROcodone 325 MG/5 MG TAB PO PRN (02:46)
[2017-04-19] MEDS: metroNIDAZOLE 500 MG TAB PO SCH (04:59)
[2017-04-19] MEDS: LEVOTHYROXINE SODIUM 125 MCG TAB PO SCH (04:59)
[2017-04-19 08:00] VITALS: BP 120/80; PULSE 81; RESP 17; TEMP 95.3; O2SAT 94
[2017-04-19 08:48] LABS: POTASSIUM 3.4 MEQ/L (3.5-5.1)
[2017-04-19] MEDS ORDERED: POTASSIUM CHLORIDE 10 MEQ CONTROLLED RELEASE TAB PO ONE (10:00)
[2017-04-19] MEDS: DOCUSATE SODIUM 50 MG/SENNA 8.6 MG TAB PO SCH (10:08)
[2017-04-19] MEDS: SODIUM CHLORIDE 0.9% FLUSH 10 ML FLUSH IV FLUSH SCH (10:08)
[2017-04-19] MEDS: LORazepam 0.5 MG TAB PO SCH (10:08)
[2017-04-19] MEDS: CIPROFLOXACIN 500 MG TAB PO SCH (10:08)
[2017-04-19] MEDS: PANTOPRAZOLE SOD 40 MG DELAYED RELEASE TAB PO SCH (10:08)
[2017-04-19] MEDS: ONDANSETRON HCL 4 MG/2 ML VIAL IVP PRN (10:09)
--- NOTE | 2017-04-19 10:36 | PD.WCN.NOT ---
Wound Consult Description: Consult for NEW OSTOMY TEACHING of new ileostomy (04/11/17) per SANJIV Soto Communicated with: Patient WENCESLAO Lopez ARNP Recommendation: Empty pouch when 1/3-1/2 full Change wafer every 3-5 days and PRN before leaks occur using water only ( adhesive remover to take off appliance and cavilon skin prep before applying wafer) Additional Information: Patient seen on [address] [place] [address] for ostomy appliance change and teaching prior to discharge. Ostomy Type: Ileostomy (loop) Surgeon: Shaw Mae MD Date of Surgery: Apr 11, 2017 Complete: Starter kit (sent via [employer]), Education materials (at bedside), Rx (left on chart), Other (supplies ordered from [facility] for patient to go home with at discharge) Educated patient on: Changing appliance using adhesive removal wipes Cleansing skin with water only Measuring stoma Stoma appearance and function How to cut appliance if using cut to fit How to mold appliance if using a moldable appliance Allowing skin to dry, spray skin prep, and allow skin to dry thoroughly again Placing wafer (barrier) and then pouch Closing pouch at the bottom to prevent leaks Additional information Patient seen on [address] [place] [address] for ostomy assessment, teaching, and appliance change with WENCESLAO Lopez and SANJIV Soto at bedside. Patient removed barrier using adhesive remover wipes. Peristomal skin is erythematous and blanching with no open areas noted. Terry being held in by 2 sutures was removed per SANJIV Soto verbal order. Stoma is dark red, moist, oval, moderately protruding, measuring 1 1/2" tall and 1 3/4" wide, lumen noted @ 9 o'clock (with mucus) and 3 o'clock (functioning with green soft effluent). Mucocutaneous junction is unremarkable. Peristomal skin was cleansed with a moist warm washcloth and allowed to air dry while measuring and cutting barrier (wafer). Cavilon skin prep was sprayed on the peristomal skin and allowed to dry thoroughly. Stoma paste was used around stoma to help prevent leaks prior to patient applying barrier to skin. Patient was assisted in applying the pouch to the wafer. Patient then held her hands over the entire appliance to warm and help adhere to skin. Kelly Ríos [facility] Apr 19, 2017 10:36
--- NOTE | 2017-04-19 10:38 | HHI.PR ---
Subjective Remarks Follow-up recurrent acute diverticulitis, failed outpatient therapy 04/13/17-patient seen and examined, currently tolerating current diet without any complication nausea and vomiting. Afebrile 04/14/17-patient seen and examined, that she had episode of nausea and vomiting after taking by mouth as of yesterday. Currently stable. 04/15/17-patient seen and examined, currently on regular diet with patient although did not eat much but tolerated without any complication of nausea and vomiting.Complains of insomnia 04/16/17-patient seen and examined, states she was so much in pain yesterday after attempt to unclog her PRERNA drain by surgery. Able to sleep a few hours last night. Tolerated by mouth however not taking much 04/17/17-patient seen and examined, states she had some abdominal pain last night otherwise stable this AM. 04/18/17-patient seen and examined, abdominal pain much more tolerable today. No acute event overnight. Case discussed with general surgery and recommended watching patient 1 more day 04/19/17-patient seen and examined, stable and looking for discharge today. No acute event overnight. Objective Vitals Vital Signs Date Time Temp Pulse Resp B/P (MAP) Pulse Ox O2 Delivery O2 Flow Rate FiO2 04/19/17 08:00 95.3 81 17 120/80 (93) 94 04/19/17 00:27 98.0 95 20 121/81 (94) 97 04/18/17 20:27 96.7 82 18 126/82 (97) 95 04/18/17 16:00 96.2 86 16 121/82 (95) 96 04/18/17 12:00 96.8 92 17 117/73 (88) 94 I/O 04/18/17 04/18/17 04/18/17 04/19/17 04/19/17 04/19/17 07:00 15:00 23:00 07:00 15:00 23:00 Intake Total 480 ml 780 ml Output Total 300 ml 305 ml 310 ml Balance -300 ml 175 ml 470 ml Intake Oral 480 ml 780 ml Stool Total 300 ml 275 ml 300 ml Drainage Total 0 ml 30 ml 10 ml # Voids 2 5 4 Result Diagram: 04/17/17 1553 04/19/17 0733 Imaging Last Impressions Pelvis Ultrasound 04/10/17 0000 Signed Impressions: Service Date/Time: Monday, April 10, 2017 21:27 - CONCLUSION: 1. Visualization of a ill-defined complex fluid collection in the central pelvis corresponding to the known diverticular abscess seen on CT. 2. Unremarkable right ovary. 3. Status post hysterectomy. 4. Nonvisualization of the left ovary with no evidence of an adnexal mass. Tim Quinones MD Abdomen/Pelvis CT 04/07/17 0000 Signed Impressions: Service Date/Time: Friday, April 07, 2017 16:27 - CONCLUSION: 1. Irregular diverticular abscess in the deep pelvic cavity and contiguous with the roof of the urinary bladder. A safe drainage path is not clearly visualized. Interventional radiology consultation is pending. 2. Umbilical hernia containing fat and a short segment of small bowel. No obstruction or induration. 3. Small to moderate hiatal hernia again noted. 4. Trace left base atelectasis. Jose Tavares MD Chest X-Ray 04/06/17 2354 Signed Impressions: Service Date/Time: Friday, April 07, 2017 00:11 - CONCLUSION: No acute abnormality is identified. Jose Martinez MD Objective Remarks GENERAL: NAD SKIN: Warm and dry. HEAD: Normocephalic. EYES: No scleral icterus. No injection or drainage. NECK: Supple, trachea midline. No JVD or lymphadenopathy. CARDIOVASCULAR: Regular rate and rhythm without murmurs, gallops, or rubs. RESPIRATORY: Breath sounds equal bilaterally. No accessory muscle use. GASTROINTESTINAL: Abdomen soft, non-tender, nondistended. Ileostomy bag in place; PRERNA drain in place MUSCULOSKELETAL: No cyanosis, or edema. BACK: Nontender without obvious deformity. No CVA tenderness. Procedures Status post lap, lap washed out and drain placement 04/11/17 Status post diverting ileostomy placement 04/11/17 A/P Problem List: (1) Abscess of sigmoid colon due to diverticulitis ICD Code: K57.20 - Diverticulitis of large intestine with perforation and abscess without bleeding Status: Acute (2) Leukocytosis ICD Code: D72.829 - Elevated white blood cell count, unspecified Status: Resolved (3) Hypokalemia ICD Code: E87.6 - Hypokalemia (4) Hypothyroidism ICD Code: E03.9 - Hypothyroidism, unspecified Assessment and Plan 56-year-old female with Recurrent acute sigmoid diverticulitis - Status post lap, lap washout and drain placement, ileostomy placement - Management per general surgery - s/p Zosyn. currently on PO Cipro Flagyl - Pain management accordingly with Ofirmev and continue healthy diet - PT eval and treat Hypokalemia - Resolved status post replacement Hypothyroidism - Continue with Synthroid Insomnia Continue Restoril PRN HS DVT prop, Lovenox Discharge Planning Discharge home today Elias Looney MD Apr 19, 2017 10:38
--- NOTE | 2017-04-19 10:43 | HHI.PR ---
Subjective Subjective Notes Working with RN Kelly corrales at bedside Objective Vitals/I&O Vital Signs Date Time Temp Pulse Resp B/P (MAP) Pulse Ox O2 Delivery O2 Flow Rate FiO2 04/19/17 08:00 95.3 81 17 120/80 (93) 94 04/15/17 21:03 Nasal Cannula 2.00 Labs Laboratory Tests Test 04/18/17 16:05 04/19/17 07:33 Potassium Level 3.8 3.4 Blood Urea Nitrogen 18 Creatinine 0.66 Random Glucose 112 Calcium Level 9.2 Sodium Level 140 Chloride Level 105 Carbon Dioxide Level 28.0 Anion Gap 7 Estimat Glomerular Filtration Rate 93 Date/Time Source Procedure Growth Status 04/07/17 00:20 Blood Peripheral Aerobic Blood Culture - Final NO GROWTH IN 5 DAYS Complete 04/07/17 00:20 Blood Peripheral Anaerobic Blood Culture - Final NO GROWTH IN 5 DAYS Complete Radiology Last Impressions Pelvis Ultrasound 04/10/17 0000 Signed Impressions: Service Date/Time: Monday, April 10, 2017 21:27 - CONCLUSION: 1. Visualization of a ill-defined complex fluid collection in the central pelvis corresponding to the known diverticular abscess seen on CT. 2. Unremarkable right ovary. 3. Status post hysterectomy. 4. Nonvisualization of the left ovary with no evidence of an adnexal mass. Tim Quinones MD Abdomen/Pelvis CT 04/07/17 0000 Signed Impressions: Service Date/Time: Friday, April 07, 2017 16:27 - CONCLUSION: 1. Irregular diverticular abscess in the deep pelvic cavity and contiguous with the roof of the urinary bladder. A safe drainage path is not clearly visualized. Interventional radiology consultation is pending. 2. Umbilical hernia containing fat and a short segment of small bowel. No obstruction or induration. 3. Small to moderate hiatal hernia again noted. 4. Trace left base atelectasis. Jose Tavares MD Chest X-Ray 04/06/17 6160 Signed Impressions: Service Date/Time: Friday, April 07, 2017 00:11 - CONCLUSION: No acute abnormality is identified. Jose Martinez MD Cardiovascular: Regular Lungs: Clear Abdomen: Other (ileostomy pink; antoni removed; lap sites c/d/i; PRERNA with serous fluid ) Extremities: No edema A/P Problem List: (1) Ileostomy in place ICD Codes: Z93.2 - Ileostomy status Status: Acute (2) Diverticulitis ICD Codes: K57.92 - Diverticulitis of intestine, part unspecified, without perforation or abscess without bleeding Status: Acute (3) S/P ileostomy ICD Codes: Z93.2 - Ileostomy status Status: Acute Assessment and Plan 56 year old female with recurrent acute diverticulitis; failed outpatient treatment; s/p dx lap; ileostomy; drain placement -Regular diet -OOB and mobilize -Give one dose of potassium today -Continue PO antibiotics -Continue PO pain mediations -IS -Lovenox -PT -CM consult for [facility]---face to face complete -Will get an outpatient CT Apr 27 -Follow up with Dr. Mae on May 04 at 9:40AM - clear for DC Problem Qualifiers (1) Diverticulitis: Qualified Codes: K57.80 - Diverticulitis of intestine, part unspecified, with perforation and abscess without bleeding Haley Soto Apr 19, 2017 10:43
[2017-04-19 12:00] VITALS: BP 119/85; PULSE 123; RESP 17; TEMP 96.6; O2SAT 97
[2017-04-19] MEDS ORDERED: METR-1 PO (13:13)
[2017-04-19] MEDS ORDERED: CIPR-9 PO (13:13)
== END 2017-04-19 13:45 | disposition home health service (06) | DRG 330 ==
LOC: PHED 20:00 → PHEDA 04-07 01:03 → PH3A 04-07 02:16 → N07B 04-08 13:52
PROVIDERS: ADMIT Hospitalist; ATTEND Hospitalist
PROC: 0W9J40Z Drainage of Pelvic Cavity with Drainage Device, Percutaneous Endoscopic Approach (ICD-10-PCS; 2017-04-11)
PROC: 0DNN8ZZ Release Sigmoid Colon, Via Natural or Artificial Opening Endoscopic (ICD-10-PCS; 2017-04-11)
PROC: 3E1M38Z Irrigation of Peritoneal Cavity using Irrigating Substance, Percutaneous Approach (ICD-10-PCS; 2017-04-11)
PROC: 0D1B4Z4 Bypass Ileum to Cutaneous, Percutaneous Endoscopic Approach (ICD-10-PCS; principal; 2017-04-11 10:24)
DX: K57.20 Diverticulitis of large intestine with perforation and abscess without bleeding (principal); E66.9 Obesity, unspecified; K66.0 Peritoneal adhesions (postprocedural) (postinfection); N99.3 Prolapse of vaginal vault after hysterectomy; E03.9 Hypothyroidism, unspecified; K21.9 Gastro-esophageal reflux disease without esophagitis; E78.5 Hyperlipidemia, unspecified; E87.6 Hypokalemia; N83.209 Unspecified ovarian cyst, unspecified side; G47.00 Insomnia, unspecified; F12.90 Cannabis use, unspecified, uncomplicated; F41.9 Anxiety disorder, unspecified; F17.210 Nicotine dependence, cigarettes, uncomplicated; Z68.38 Body mass index [BMI] 38.0-38.9, adult; Z86.73 Personal history of transient ischemic attack (TIA), and cerebral infarction without residual deficits
CPT/HCPCS: 71010; 74177; 76830; 76856; 80048; 80053; 81001; 83605; 83690; 84132; 85025; 85027; 85610; 85730; 87040; 93005; 96365; 96375; J0131; J1100; J1650; J2270; J2370; J2405; J2543; J2710; J3010; J3480; J7030; J7120; Q9963; Q9967

== ENCOUNTER 2017-07-18 10:51 | Inpatient (IN) | payer OTHER, MEDICARE ==
[~2017-07-18] VITALS: Ht 147.3 cm; Wt 80.0 kg
[2017-07-18] MEDS: D5-NS + KCL 20 MEQ INJ 1,000 ML IV SCH (01:30)
[2017-07-18] MEDS: metroNIDAZOLE 500 MG INJ 100 ML IV SCH (01:35)
[~2017-07-18 10:51] MED LIST changes: +ALBUAER3 INH; +AMBI10TA PO; -DICL50TA3 PO; +NORC5TAB PO; +TRAM50TA PO
[2017-07-18] MEDS ORDERED: metroNIDAZOLE 500 MG INJ 100 ML IV ONE (11:25)
[2017-07-18] MEDS ORDERED: ALVIMOPAN 12 MG CAPSULE ONE (11:25)
[2017-07-18] MEDS ORDERED: ceFAZolin 2 GM PREMIX 50 ML ONE (11:25)
[2017-07-18] MEDS ORDERED: CHLORHEXIDINE GLUCONATE 2 % 1 PACK (2 CLOTHS) TOPICAL PRN (11:45)
[2017-07-18] MEDS ORDERED: POVIDONE IODINE 5% (ANTISEPSIS KIT) 4 APPLICATIONS EACH NARE PRN (11:45)
[2017-07-18] MEDS ORDERED: LACTATED RINGER'S 1000 ML IV PRN (11:45)
[2017-07-18] MEDS ORDERED: METOPROLOL TARTRATE 25 MG TAB PO PRN (11:45)
[2017-07-18] MEDS ORDERED: ALVIMOPAN 12 MG CAPSULE - On Call PO SCH (11:45)
[2017-07-18] MEDS ORDERED: SODIUM CHLORID 0.9% 500 ML IV PRN (11:45)
[2017-07-18] MEDS ORDERED: PHENYLEPH/NS 1000 MCG/10 ML SYR IV ONE (12:00)
[2017-07-18] MEDS ORDERED: DEXAMETHASONE SOD PHOS 4 MG/ML VIAL IV ONE (12:00)
[2017-07-18] MEDS ORDERED: PROPOFOL 200 MG/20 ML AMP IV ONE (12:00)
[2017-07-18] MEDS ORDERED: ceFAZolin INJ 1,000 MG VIAL IV ONE ×3 (12:00→21:45)
[2017-07-18] MEDS ORDERED: LIDOCAINE HCL 1% PF 5 ML SYRINGE OTHER ONE (12:00)
[2017-07-18] MEDS ORDERED: ESMOLOL HCL 100 MG/10 ML VIAL IV ONE (12:00)
[2017-07-18] MEDS ORDERED: ROCURONIUM INJ 50 MG/5 ML SYRINGE IV PUSH ONE (12:00)
[2017-07-18] MEDS ORDERED: ONDANSETRON HCL 4 MG/2 ML VIAL IV ONE (12:00)
[2017-07-18] MEDS ORDERED: STERILE WATER FOR INJECTION 20 ML VIAL IV ONE (12:00)
[2017-07-18] MEDS ORDERED: ceFAZolin 2 GM PREMIX 50 ML IV SCH (12:00)
[2017-07-18] MEDS ORDERED: VECURONIUM BROMIDE 20 MG VIAL IV ONE (12:00)
[2017-07-18] MEDS ORDERED: LABETALOL HCL 100 MG/20 ML VIAL IV ONE (12:00)
[2017-07-18] MEDS ORDERED: METRONIDAZOLE 500 MG/100 ML ISONTONIC SOLN IV SCH (12:00)
[2017-07-18] MEDS ORDERED: ePHEDrine/NS 25 MG/5 ML SYRINGE IV ONE (12:00)
[2017-07-18] MEDS ORDERED: NORMOSOL R INJ 2,000 ML IV ONE (12:00)
[2017-07-18 12:14] LABS: AUTOMATED NEUTROPHIL # 7.6 TH/MM3 (1.8-7.7); BASOPHIL # 0.1 TH/MM3 (0-0.2); BASOPHIL % 0.7 % (0.0-2.0); EOSINOPHIL # 0.1 TH/MM3 (0-0.4); HEMATOCRIT 41.9 % (35.0-46.0); HEMOGLOBIN 14.1 GM/DL (11.6-15.3); LYMPH % 16.8 % (9.0-44.0); LYMPHOCYTE # 1.7 TH/MM3 (1.0-4.8); MEAN CELL VOLUME 89.1 FL (80.0-100.0); MEAN CORPUSCULAR HEMOGLOBIN 29.9 PG (27.0-34.0); MEAN CORPUSCULAR HGB CONC 33.5 % (32.0-36.0); MEAN PLATELET VOLUME 9.5 FL (7.0-11.0); MONO % 5.7 % (0.0-8.0); MONOCYTE # 0.6 TH/MM3 (0-0.9); NEUT % 75.8 % (16.0-70.0); PLATELET COUNT 271 TH/MM3 (150-450); RED BLOOD COUNT 4.71 MIL/MM3 (4.00-5.30); RED CELL DISTRIBUTION WIDTH 15.6 % (11.6-17.2)
[2017-07-18] MEDS ORDERED: DO NOT ADM ANY ANTICOAGULANT DRUGS PRN (13:00)
[2017-07-18 13:04] LABS: BICARBONATE 23.1 MEQ/L (21.0-32.0); CALCIUM 9.4 MG/DL (8.5-10.1); CREATININE 0.75 MG/DL (0.50-1.00)
[2017-07-18] MEDS ORDERED: BUPIVACAINE/EPINEPHRINE 0.25% 50 ML VIAL ONE (13:35)
[2017-07-18] MEDS ORDERED: FAMOTIDINE 20 MG/2 ML VIAL ONE (13:40)
[2017-07-18] MEDS ORDERED: MIDAZOLAM HCL 2 MG/2 ML VIAL ONE (13:40)
[2017-07-18] MEDS ORDERED: GLUCAGON 1 MG/ML VIAL ONE (14:06)
[2017-07-18] MEDS ORDERED: SODIUM CHLORIDE 0.9% FLUSH 10 ML FLUSH IV FLUSH PRN (14:30)
[2017-07-18] MEDS: SODIUM CHLORIDE 0.9% FLUSH 10 ML FLUSH IV FLUSH SCH ×2 (14:30→21:00)
[2017-07-18] MEDS ORDERED: NALOXONE HCL 0.4 MG/ML AMP IV PUSH PRN (14:30)
[2017-07-18] MEDS ORDERED: Post-op Orders (for Pharmacy) XX ONE (14:30)
[2017-07-18] MEDS ORDERED: METOCLOPRAMIDE HCL 10 MG/2 ML VIAL IVS PRN (14:30)
[2017-07-18] MEDS: PCA - TOTAL MG MORPHINE DELIVERED PER SHIFT SCH ×2 (16:00→22:00)
[2017-07-18] MEDS ORDERED: SUGAMMADEX SODIUM 200 MG/2 ML VIAL IV PUSH ONE (19:56)
[2017-07-18] MEDS ORDERED: VECURONIUM BROMIDE 20 MG VIAL ONE (20:34)
[2017-07-18] MEDS: DOCUSATE SODIUM 100 MG CAP PO SCH (21:00)
[2017-07-18] MEDS ORDERED: ALVIMOPAN 12 MG CAPSULE PO SCH (21:00)
[2017-07-19] VITALS (15 sets, daily range): BP systolic 126–157; BP diastolic 77–98; PULSE 97–108; RESP 12–22; TEMP 98.6–99.3; O2SAT 98–100
--- NOTE | 2017-07-19 00:55 | HHI.PR ---
Immediate Post Op Note Procedure Date: Jul 19, 2017 Pre Op Diagnosis: hx of diverticular abscess, ileostomy Post Op Diagnosis: same, multiple intraabdominal adhesions, parastomal hernia Surgeon: Shaw Mae MD Embedded Nurse(s): Dr. Pedersen, Dr. Frank Procedure: robotic asst laparoscopic sigmoidectomy, lap GUSTAVO> 60 minutes, rigid proctosigmoidoscopy, Findings: adhesions, leak with anastomotic breakdown x2 no leak on final anastomosis Complications: none Specimen(s) removed: sigmoid colon Estimated blood loss: 300cc Anesthesia: General Drains: PRERNA IVF (3000) Patient to: PACU Patient Condition: Shaw Thompson MD Jul 19, 2017 00:55
[2017-07-19] MEDS ORDERED: PROPOFOL 1000 MG/100 ML INJ 100 ML ONE (01:23)
--- NOTE | 2017-07-19 01:25 | RADRPT ---
EXAM DATE/TIME: 07/19/2017 01:10 [place] COMPARISON: CHEST SINGLE AP, April 07, 2017, 0:11. INDICATIONS : E-T tube placement. MEDICAL HISTORY : Gastroesophageal reflux disease. Hiatal hernia. [place] SURGICAL HISTORY : Hysterectomy. Hernia repair ENCOUNTER: Initial ACUITY: 1 day PAIN SCORE: Non-responsive. LOCATION: Bilateral chest FINDINGS: A single view of the chest demonstrates the lungs to be symmetrically aerated without evidence of mas s, infiltrate or effusion. Mild cardiomegaly. No pulmonary vascular engorgement. An endotracheal tube 2 cm from the ge. Tip of the NG tube in the region of the body of the stomach. Osseous structure s are intact. CONCLUSION: No acute disease. Tin James Jr., MD on July 19, 2017 at 1:23 Board Certified Radiologist. This report was verified electronically.
[2017-07-19] MEDS ORDERED: POTASSIUM CHLOR 40 MEQ PREMIX 100 ML IV PRN ×2 (02:00)
[2017-07-19] MEDS ORDERED: MAGNESIUM OXIDE 400 MG TAB PO PRN (02:00)
[2017-07-19] MEDS ORDERED: POTASSIUM PHOSPHATE MONOBASIC 500 MG TAB PO/TUBE PRN (02:00)
[2017-07-19] MEDS ORDERED: POTASSIUM CHLOR 20 MEQ PREMIX 100 ML IV PRN ×2 (02:00)
[2017-07-19] MEDS ORDERED: SODIUM PHOSPHATE INJ 30 MMOL in SODIUM CHLOR 0.9% 250 ML INJ 240 ML IV PRN (02:00)
[2017-07-19] MEDS ORDERED: POTASSIUM PHOSPHATE MONOBASIC 500 MG TAB PO PRN (02:00)
[2017-07-19] MEDS ORDERED: PROPOFOL 1000 MG/100 ML INJ 100 ML IV PRN (02:00)
[2017-07-19] MEDS ORDERED: LACTATED RINGER'S 1000 ML INJ 1,000 ML IV ONE (02:00)
[2017-07-19] MEDS ORDERED: POTASSIUM CHLORIDE 25 MEQ EFFERVESCENT TAB PO PRN (02:00)
[2017-07-19] MEDS ORDERED: POTASSIUM PHOSPHATE INJ 30 MMOL in SODIUM CHLOR 0.9% 250 ML INJ 250 ML IV PRN (02:00)
--- NOTE | 2017-07-19 02:40 | PD.CONS ---
[facility] Service Critical Care Medicine Consult Requested By Dr. Mae Reason for Consult Critical care management following sigmoidectomy, respiratory failure Primary Care Physician Non-Staff History of Present Illness 57-year-old female with past medical history of diverticulitis in February 2017. She developed a diverticular abscess in April that failed IR drainage. She underwent laparoscopy and washout with diverting ileostomy and drain by Dr. Mae. Today she has returned for elective sigmoidectomy. Significant adhesions were encountered which resulted in prolonged 10 hour laparoscopic robotic-assisted surgery. Dr. Mea states colorectal anastomosis staple line leaked in OR x2. No leak was encountered on final anastomosis. Critical care medicine is consulted for resuscitation and ventilator management as patient will remain intubated following prolonged procedure. Intraoperatively received she received 3 L Crystalloid EBL was 300. Urine output was 500. In the last hour since arrival to PACU she has had 100 mL of urine output. Review of Systems ROS Limitations: Clinical Condition Past Family Social History Allergies: Coded Allergies: latex (Verified Allergy, Severe, Rash, 07/18/17) Past Medical History Hypothyroidism Hyperlipidemia Asthma GERD Diverticulitis Past Surgical History Hysterectomy Hiatal hernia repair Right hip surgery section Reported Medications Cipro 500 mg by mouth twice a day Next night is 5 mg by mouth 3 times a day Albuterol 2 puffs inhaled every 4 hours Comer 5/325 one tab by mouth every 4 hours as needed for pain Ativan 0.5 mg by mouth twice a day Ambien 10 mg by mouth daily at bedtime Omeprazole 40 mg by mouth daily Levothyroxin 125 mics per grams by mouth daily Family History Mother has diabetes Social History She smokes occasionally. Smokes marijuana and. Or illicit drug use. Physical Exam Vital Signs Vital Signs Date Time Temp Pulse Resp B/P (MAP) Pulse Ox O2 Delivery O2 Flow Rate FiO2 07/19/17 00:50 97.0 86 12 111/76 (88) 100 Mechanical Ventilator 50 07/18/17 22:00 12 07/18/17 16:00 12 07/18/17 11:28 98.8 91 20 106/73 (84) 98 Physical Exam GENERAL: Well-nourished, well-developed patient who is orotracheally intubated, sedated post pacu. SKIN: Warm and dry, well perfused. HEAD: Atraumatic. Normocephalic. EYES: Pupils equal and round. No scleral icterus. No injection or drainage. ENT: No nasal bleeding or discharge. Mucous membranes pink and moist. NECK: Trachea midline. No JVD. CARDIOVASCULAR: Regular rate and rhythm. No murmurs rubs or gallops. RESPIRATORY: No accessory muscle use. Clear to auscultation. Breath sounds equal bilaterally. GASTROINTESTINAL: Abdomen soft, mildly distended, hypoactive bowel sounds. PRERNA in left abdomen with bloody drainage, some serous. Low transverse Remedios dressing in place. Ileostomy right abdomen with pink mucosa. MUSCULOSKELETAL: Extremities without clubbing, cyanosis, or edema. No obvious deformities. NEUROLOGICAL: Eyes closed, pupils 4mm and reactive. No response to noxious stimuli in PACU s/p general anesthesia Laboratory Laboratory Tests Test 07/18/17 11:30 White Blood Count 10.0 Red Blood Count 4.71 Hemoglobin 14.1 Hematocrit 41.9 Mean Corpuscular Volume 89.1 Mean Corpuscular Hemoglobin 29.9 Mean Corpuscular Hemoglobin Concent 33.5 Red Cell Distribution Width 15.6 Platelet Count 271 Mean Platelet Volume 9.5 Neutrophils (%) (Auto) 75.8 Lymphocytes (%) (Auto) 16.8 Monocytes (%) (Auto) 5.7 Eosinophils (%) (Auto) 1.0 Basophils (%) (Auto) 0.7 Neutrophils # (Auto) 7.6 Lymphocytes # (Auto) 1.7 Monocytes # (Auto) 0.6 Eosinophils # (Auto) 0.1 Basophils # (Auto) 0.1 CBC Comment DIFF FINAL Differential Comment Blood Urea Nitrogen 19 Creatinine 0.75 Random Glucose 92 Calcium Level 9.4 Sodium Level 136 Potassium Level 4.2 Chloride Level 103 Carbon Dioxide Level 23.1 Anion Gap 10 Estimat Glomerular Filtration Rate 80 Result Diagram: 07/18/17 1130 07/18/17 1130 Assessment and Plan Problem List: (1) Respiratory failure, acute ICD Code: J96.00 - Acute respiratory failure, unspecified whether with hypoxia or hypercapnia Status: Acute (2) Ileostomy in place ICD Code: Z93.2 - Ileostomy status Status: Acute (3) Hypothyroidism ICD Code: E03.9 - Hypothyroidism, unspecified Status: Chronic (4) GERD (gastroesophageal reflux disease) ICD Code: K21.9 - Gastro-esophageal reflux disease without esophagitis Status: Chronic (5) S/P laparoscopic-assisted sigmoidectomy ICD Code: Z90.49 - Acquired absence of other specified parts of digestive tract Status: Acute Assessment and Plan NEURO: Postoperative pain Propofol as needed for sedation. Target RASS -2 Lortab as needed for pain. Fentanyl as needed for breakthrough pain RESP: Acute respiratory failure Asthma PRVC. Ventilator bundle. Spontaneous breathing trial in a.m. with extubation if tolerated. Chest x-ray with ET tube and NG tube in satisfactory position. Lungs clear Obtain ABG CV: Monitor hemodynamics Bolus 1 L LR now D5NS with 20 mEq of KCl per liter at 125 mL per hour GI: Diverticulitis complicated by abscess in April 2017 Ileostomy Status post laparoscopic robotic-assisted sigmoidectomy and anastomosis GERD Nothing by mouth NG tube to low intermittent suction. Management and diet advancement will get discretion of general surgery. Bowel regimen with Colace twice a day, Entereg, reglan FEN/RENAL: IV fluids as per above. Monitor electrolytes. Replace lites as indicated per ICU electrolyte replacement protocol. ID: On perioperative cefazolin and Flagyl HEME: Obtain postop CBC ENDO: Hypothyroidism Continue Synthroid 125 g by mouth daily PROPH: SCDs for DVT prophylaxis. Lovenox 40 milligrams subcutaneous daily for DVT prophylaxis, and initiate 3/15 if Hgb stable. Her tonic certainly grams IV daily for stress ulcer prophylaxis and history of GERD ACCESS: Peripheral IV providing adequate access at this time. Discussed with Dr. Mae, MANAGER [employer], ISC RN and charge. Level 3 Consult Dafne Ponce MD Jul 19, 2017 02:40
[2017-07-19 03:27] LABS: AUTOMATED NEUTROPHIL # 14.5 TH/MM3 (1.8-7.7); BASOPHIL % 0.1 % (0.0-2.0); HEMATOCRIT 40.3 % (35.0-46.0); HEMOGLOBIN 13.5 GM/DL (11.6-15.3); LYMPH % 5.4 % (9.0-44.0); LYMPHOCYTE # 0.9 TH/MM3 (1.0-4.8); MEAN CORPUSCULAR HEMOGLOBIN 29.5 PG (27.0-34.0); MEAN CORPUSCULAR HGB CONC 33.6 % (32.0-36.0); MEAN PLATELET VOLUME 9.1 FL (7.0-11.0); MONO % 6.3 % (0.0-8.0); NEUT % 88.2 % (16.0-70.0); PLATELET COUNT 294 TH/MM3 (150-450); RED BLOOD COUNT 4.59 MIL/MM3 (4.00-5.30); WHITE BLOOD COUNT 16.5 TH/MM3 (4.0-11.0)
[2017-07-19] MEDS: PCA - TOTAL MG MORPHINE DELIVERED PER SHIFT SCH ×3 (05:27→22:00)
[2017-07-19] MEDS: metroNIDAZOLE 500 MG INJ 100 ML IV SCH (06:00)
[2017-07-19 06:02] LABS: BICARBONATE 22.6 MEQ/L (21.0-32.0); CALCIUM 7.9 MG/DL (8.5-10.1); CREATININE 0.78 MG/DL (0.50-1.00); PHOSPHORUS 3.4 MG/DL (2.5-4.9)
[2017-07-19] MEDS: CHLORHEXIDINE 0.12% (ORAL KIT) 15 ML CUP MT SCH ×2 (07:38→20:00)
[2017-07-19] MEDS: ONDANSETRON HCL 4 MG/2 ML VIAL IV PUSH PRN ×2 (07:39→11:28)
[2017-07-19] MEDS: SODIUM CHLORIDE 0.9% FLUSH 10 ML FLUSH IV FLUSH SCH ×2 (09:00→21:00)
[2017-07-19] MEDS: DOCUSATE SODIUM 100 MG CAP PO SCH ×2 (09:00→21:31)
[2017-07-19] MEDS: ALVIMOPAN 12 MG CAPSULE - Post-op dosing PO SCH ×2 (09:00→21:31)
[2017-07-19] MEDS: MORPHINE SULFATE 30 MG/30 ML PCA IV SCH (11:30)
[2017-07-19] MEDS ORDERED: ENOXAPARIN SODIUM 40 MG/0.4 ML SYRINGE SQ SCH (12:00)
[2017-07-19] MEDS: PANTOPRAZOLE SODIUM 40 MG VIAL IV PUSH SCH (12:15)
[2017-07-19] MEDS: SCOPOLAMINE 1.5 MG PATCH T-DERMAL SCH (12:39)
[2017-07-19] MEDS: ENOXAPARIN SODIUM 40 MG/0.4 ML SYRINGE SQ SCH (12:39)
[2017-07-19] MEDS: D5-NS + KCL 20 MEQ INJ 1,000 ML IV SCH ×3 (12:45→22:00)
[2017-07-19] MEDS: METOCLOPRAMIDE HCL 10 MG/2 ML VIAL IV PUSH SCH ×2 (13:00→21:31)
--- NOTE | 2017-07-19 14:49 | HHI.PR ---
Subjective Subjective Notes Resting in bed Son at bedside "Can you adjust my pillow?" Objective Vitals/I&O Vital Signs Date Time Temp Pulse Resp B/P (MAP) Pulse Ox O2 Delivery O2 Flow Rate FiO2 07/19/17 12:00 102 07/19/17 12:00 98.9 19 144/83 (103) 98 07/19/17 08:00 Nasal Cannula 2.00 07/19/17 06:15 100 Labs Laboratory Tests Test 07/19/17 03:00 07/19/17 03:48 07/19/17 04:30 White Blood Count 16.5 Red Blood Count 4.59 Hemoglobin 13.5 Hematocrit 40.3 Mean Corpuscular Volume 88.0 Mean Corpuscular Hemoglobin 29.5 Mean Corpuscular Hemoglobin Concent 33.6 Red Cell Distribution Width 16.0 Platelet Count 294 Mean Platelet Volume 9.1 Neutrophils (%) (Auto) 88.2 Lymphocytes (%) (Auto) 5.4 Monocytes (%) (Auto) 6.3 Eosinophils (%) (Auto) 0.0 Basophils (%) (Auto) 0.1 Neutrophils # (Auto) 14.5 Lymphocytes # (Auto) 0.9 Monocytes # (Auto) 1.0 Eosinophils # (Auto) 0.0 Basophils # (Auto) 0.0 CBC Comment DIFF FINAL Differential Comment Nasal Screen MRSA (PCR) MRSA NOT DETECTED Blood Gas Puncture Site RT RADIAL Blood Gas Patient Temperature 98.6 Blood Gas HCO3 23 Blood Gas Base Excess -2.5 Blood Gas Oxygen Saturation 97 Arterial Blood pH 7.32 Arterial Blood Partial Pressure CO2 46 Arterial Blood Partial Pressure O2 128 Arterial Blood Oxygen Content 18.5 Arterial Blood Carboxyhemoglobin 1.1 Arterial Blood Methemoglobin 0.9 Blood Gas Hemoglobin 13.5 Oxygen Delivery Device VENTILATOR Blood Gas Ventilator Setting PRVC/AC Blood Gas Inspired Oxygen 40 Blood Urea Nitrogen 16 Creatinine 0.78 Random Glucose 245 Calcium Level 7.9 Phosphorus Level 3.4 Magnesium Level 2.0 Sodium Level 137 Potassium Level 5.4 Chloride Level 105 Carbon Dioxide Level 22.6 Anion Gap 9 Estimat Glomerular Filtration Rate 76 Cardiovascular: Regular Lungs: Clear Abdomen: Other (dressing c/d/i; ileostomy with pink stoma; SHIRLEY in place ) Extremities: No edema A/P Assessment and Plan 57 year old female POD1 robotic asst laparoscopic sigmoidectomy, lap GUSTAVO> 60 minutes, rigid proctosigmoidoscopy -NPO -Continue IVF -Pain control -Zofran and Reglan -Lovenox -OOB as tolerated -Patient stable from respiratory standpoint s/p self-extubation Attending Statement patient seen at bedside self extubated this am sats appropriate doing well keep in icu dvt ppx Attestation The exam, history, and the medical decision-making described in the above note were completed with the assistance of the mid-level provider. I reviewed and agree with the findings presented. I attest that I had a [id number] encounter with the patient on the same day, and personally performed and documented my assessment and findings in the medical record. Haley Soto/[employer] KINCAID Jul 19, 2017 14:49 Shaw Mae MD Jul 23, 2017 11:02
[2017-07-19 22:36] LABS: BICARBONATE 27.7 MEQ/L (21.0-32.0); CALCIUM 7.8 MG/DL (8.5-10.1); CREATININE 0.55 MG/DL (0.50-1.00)
[2017-07-20] VITALS (14 sets, daily range): BP systolic 106–146; BP diastolic 68–95; PULSE 90–114; RESP 14–20; TEMP 98.9–99.7; O2SAT 96–99
[2017-07-20] MEDS: METOCLOPRAMIDE HCL 10 MG/2 ML VIAL IV PUSH SCH ×3 (05:00→22:07)
[2017-07-20] MEDS: PCA - TOTAL MG MORPHINE DELIVERED PER SHIFT SCH ×3 (05:01→22:00)
[2017-07-20 05:08] LABS: AUTOMATED NEUTROPHIL # 12.8 TH/MM3 (1.8-7.7); BASOPHIL % 0.1 % (0.0-2.0); EOSINOPHIL % 0.1 % (0.0-4.0); HEMATOCRIT 36.9 % (35.0-46.0); HEMOGLOBIN 12.1 GM/DL (11.6-15.3); LYMPH % 7.3 % (9.0-44.0); LYMPHOCYTE # 1.1 TH/MM3 (1.0-4.8); MEAN CELL VOLUME 88.7 FL (80.0-100.0); MEAN CORPUSCULAR HEMOGLOBIN 29.1 PG (27.0-34.0); MEAN CORPUSCULAR HGB CONC 32.8 % (32.0-36.0); MEAN PLATELET VOLUME 8.7 FL (7.0-11.0); MONOCYTE # 1.1 TH/MM3 (0-0.9); NEUT % 85.5 % (16.0-70.0); PLATELET COUNT 207 TH/MM3 (150-450); RED BLOOD COUNT 4.16 MIL/MM3 (4.00-5.30); RED CELL DISTRIBUTION WIDTH 15.5 % (11.6-17.2)
[2017-07-20] MEDS: D5-NS + KCL 20 MEQ INJ 1,000 ML IV SCH ×4 (05:23→22:50)
[2017-07-20 05:39] LABS: ALBUMIN 2.4 GM/DL (3.4-5.0); AST (GOT) 20 U/L (15-37); BICARBONATE 27.7 MEQ/L (21.0-32.0); BLOOD UREA NITROGEN 5 MG/DL (7-18); CHLORIDE 111 MEQ/L (98-107); CREATININE 0.53 MG/DL (0.50-1.00); GLOMERULAR FILTRATION RATE 119 ML/MIN (>89); GLUCOSE,RANDOM 144 MG/DL (74-106); SODIUM (NA) 145 MEQ/L (136-145)
[2017-07-20 05:42] LABS: ALKALINE PHOSPHATASE 69 U/L (45-117); ALT (GPT) 12 U/L (10-53); TOTAL BILIRUBIN ADULT 0.5 MG/DL (0.2-1.0); TOTAL PROTEIN 6.1 GM/DL (6.4-8.2)
[2017-07-20] MEDS: CHLORHEXIDINE 0.12% (ORAL KIT) 15 ML CUP MT SCH ×2 (08:00→19:44)
[2017-07-20] MEDS: PANTOPRAZOLE SODIUM 40 MG VIAL IV PUSH SCH (08:36)
[2017-07-20] MEDS: DOCUSATE SODIUM 100 MG CAP PO SCH ×2 (08:37→22:07)
[2017-07-20] MEDS: SODIUM CHLORIDE 0.9% FLUSH 10 ML FLUSH IV FLUSH SCH ×2 (08:37→22:07)
[2017-07-20] MEDS: ALVIMOPAN 12 MG CAPSULE - Post-op dosing PO SCH ×2 (08:38→22:06)
[2017-07-20] MEDS: LEVOTHYROXINE SODIUM 125 MCG TAB PO SCH (08:38)
--- NOTE | 2017-07-20 10:00 | MP ---
cc: Shaw Mae MD DATE OF OPERATION: 07/12/2017 PREOPERATIVE DIAGNOSIS: History of diverticular abscess, complex diverticular disease, history of ileostomy. POSTOPERATIVE DIAGNOSIS: History of diverticular abscess, complex diverticular disease, history of ileostomy, multiple intra-abdominal adhesions, parastomal hernia. SURGEON: Dr. Shaw Mae CLASSROOM ASSISTANT: Dr. Ash Dumont, Dr. Aftab Frank PROCEDURES PERFORMED: 1. Robotic-assisted laparoscopic sigmoidectomy. 2. Laparoscopic lysis of adhesions, greater than 60 minutes. 3. Rigid proctosigmoidoscopy. ANESTHESIA: GETA. INTRAVENOUS FLUIDS: 3000 milliliters. ESTIMATED BLOOD LOSS 300 milliliters. DRAINS: 19-Filipino Rakesh placed in the pelvis. FINDINGS: Multiple adhesions, leak at anastomotic site x 2, with dehiscence of stapled EEA anastomosis x 2. No leak on final anastomosis reinforcement. Sizable parastomal hernia. COMPLICATIONS: None. SPECIMENS: Sigmoid colon. INDICATIONS FOR PROCEDURE: The patient is a 57-year-old female who presented in February with diverticular disease. She was treated initially with antibiotics nonoperatively and returned with diverticular abscess and complication of diverticular disease, warranting laparoscopic drainage due to inability for interventional radiology. Drain was placed. At that time, the colon was noted to be intimately adhered to the bladder, where the abscess. Ileostomy was performed. The patient improved. To allow cooling off of the acute process after this was done, the decision was made for planned sigmoidectomy. The patient underwent colonoscopy without complication and was consented for robotic assist sigmoidectomy with primary anastomosis. DETAILS OF PROCEDURE: The patient was taken to the operating suite, placed in the lithotomy position. She was prepped and draped in the usual fashion after induction of general endotracheal anesthesia. Brief timeout done, stating correct patient, procedure and surgical site. We were all in agreement with this. Attention first directed to the left upper quadrant, where a small stab, armida incision was made. Local anesthetic injected. The abdomen entered with a 5 mm Visiport safely and abdomen insufflated to 50 mm pneumoperitoneum. On inspection, the patient was noted to have multiple adhesions. Significant adhesions allowing initial difficult port placement. Therefore, a left mid quadrant 5 mm trocar was placed and commencement of lysis of the adhesions was done. This was done in order to clear the anterior abdominal wall, in order to facilitate appropriate port placement. The left mid quadrant port was upsized to an 8 mm robotic port. Following this, a second left upper quadrant port was placed for robotic arm, #8. Next, a periumbilical port was placed, a 12 mm. This was to facilitate camera placement. Next, a 5 mm assist port was placed in the right middle quadrant as well. Next, the right lower quadrant, ASIS was palpated and this was just placed lateral and inferior to the ileostomy, parastomal hernia. A 12 mm robotic port was placed. Further lysis of adhesions was done again to allow for adequate visualization of the pelvis and the sigmoid colon. Sigmoid colon didn't note to be acutely infected, however, it was significantly fibrotic, large and scarred down. The robot was then docked and commencement of the operation was done. Ileostomy was covered with 4 x 4 and Tegaderm prior to prepping. The sigmoid colon was grasped and retracted medially. The lateral attachments, the white line of Toldt and several adhesions were taken down, just proximal to the splenic flexure in order to allow adequate mobilization of the colon. Further, approach medially in order to create a window in the mesentery and began starting a transection of the mesentery. Once a window was made, the left ureter was identified and protected and the left colic vessels were taken down with the vessel sealer. A clip was placed for improved hemostasis. The mesentery to the colon was further transected. This was done with hook electric Bovie cautery, Monopolar robotic arm and vessel sealing device. We continued to march distal into the pelvis, again slowly mobilizing the colon. The patient had prior partial hysterectomy. Therefore, again, the colon was pretty stuck down in the pelvis and still remained relatively intimately adhered to the bladder. This was meticulously dissected off the bladder in order again to mobilize the colon and assist in removing it and resection. After appropriate mobilization and once we were at the rectosigmoid junction, at a point the distal sigmoid, a robotic 45 green load GI stapler was used to transect this distal portion of the colon. The stump noted to be relatively pink and viable. Next, the patient was approached in between her legs and a Pfannenstiel incision was done using a 15 blade, further dissection down with Bovie electrocautery, down to the fascia and muscles were spread. Once the peritoneum was entered, the sigmoid segment was brought into the wound bed. Prior to this, an Afshin wound protector was placed. The sigmoid colon, again, was mobilized and brought into the wound bed and a viable portion proximal was clamped and this portion was transected and the specimen sent for pathology. The colon noted to be somewhat small proximally in diameter, but was noted to be pink and viable. The 25 dilator was placed with some difficulty again due to the small diameter nature of the proximal colon. This was dilated. Next, the anvil was placed proximally and a pursestring device was placed, clamped and secured around the anvil. The fatty tissue was cleared off this, noting clean viable bowel. This proximal portion was then dunked back in the pelvis and a protector port was placed in order to reobtain pneumoperitoneum. Dr. Frank went distally to perform the rigid proctosigmoidoscopy and placed the EEA 25 stapler. A laparoscopic anvil grasper was used. The stapler spike was advanced and pierced through the distal stump. Attachment of the anvil to the device was done and secured in the usual fashion. Examination of the colon was done in order to note that it was not twisted and noted to be in somewhat anatomic position. Once the device was locked in place, it was fired, creating the circular stapler to anastomosis. This was removed with noting of adequate donuts. However, on visualization, it was noted not to be excessive tension on the anastomosis, however, the complete anterior line of the anastomosis was noted to be and not stapled. Given the fact this was transected, this was done with a laparoscopic Endo-BEBETO 45 green load to transect just past the opening in the staple line. The proximal portion was also transected and a second pursestring suture device and anvil were placed proximally. Again, a second attempt to facilitate the 25 EEA stapler anastomosis in the distal pelvis was done and then fired and clamped in the usual standard manner. Again, upon removal of the circular EEA, the staple line noted to have opened up again anteriorly. However, posterior segment was noted to be intact. At this point, the robot arms were undocked and the procedure continued laparoscopically. A 2-0 Polysorb Endo suture was used to approximate the anterior opened segment of the anastomosis. This was done in an interrupted fashion. Upon again second proctosigmoidoscopy to insufflate the colon wall, the proximal portion was clamped. Saline was placed in order to assess for bubbling. There was noted to be small bubbling on the lateral portion. This portion was oversewn with Endo suture. Once we were content with this, second saline test was done with insufflation, the proctoscope brought occlusion proximal and noted observation for bubbling, which there was no evidence of leak and no evidence of bubbling at this time. Again, the anastomosis did not appear to be under tension and noted to be anatomically aligned without twisting. Next, hemostasis was obtained. The abdomen was thoroughly irrigated. A brief exploration around the abdomen did not note any further bowel issues and hemostasis was noted. The parastomal hernia was noted. There are several adhesions there. Given the duration of the procedure and the complexity and the fact that we were not intending to place mesh for hernia repair at this time, this was left alone. Next, again, ureters identified, was noted to be intact, without injury. A 19-Filipino Rakesh drain was placed in the pelvis. The Pfannenstiel incision was closed in layers with #2 Prolene, 3-0 Vicryl and gideon. Sterile dressing was placed, drain stitch was a 2-0 nylon and the removal of the trocars and closure of the ports were done with gideon as well. The patient tolerated the procedure well. There were no intraoperative complications. All lap and instrument counts were correct at the end of the procedure. The patient remained intubated and was taken to ICU. MD BETH Mcleod/ISMA , 09:12 PM , 10:18 PM PAM
--- NOTE | 2017-07-20 11:38 | HHI.PR ---
Subjective Subjective Notes Resting in bed Reports nausea is better today Objective Vitals/I&O Vital Signs Date Time Temp Pulse Resp B/P (MAP) Pulse Ox O2 Delivery O2 Flow Rate FiO2 07/20/17 10:32 96 Nasal Cannula 2.00 07/20/17 08:00 99.1 102 14 146/95 (112) 07/19/17 06:15 100 Labs Laboratory Tests Test 07/19/17 21:31 07/20/17 04:20 Blood Urea Nitrogen 7 5 Creatinine 0.55 0.53 Random Glucose 153 144 Calcium Level 7.8 8.0 Sodium Level 144 145 Potassium Level 4.0 4.0 Chloride Level 109 111 Carbon Dioxide Level 27.7 27.7 Anion Gap 7 6 Estimat Glomerular Filtration Rate 114 119 White Blood Count 15.0 Red Blood Count 4.16 Hemoglobin 12.1 Hematocrit 36.9 Mean Corpuscular Volume 88.7 Mean Corpuscular Hemoglobin 29.1 Mean Corpuscular Hemoglobin Concent 32.8 Red Cell Distribution Width 15.5 Platelet Count 207 Mean Platelet Volume 8.7 Neutrophils (%) (Auto) 85.5 Lymphocytes (%) (Auto) 7.3 Monocytes (%) (Auto) 7.0 Eosinophils (%) (Auto) 0.1 Basophils (%) (Auto) 0.1 Neutrophils # (Auto) 12.8 Lymphocytes # (Auto) 1.1 Monocytes # (Auto) 1.1 Eosinophils # (Auto) 0.0 Basophils # (Auto) 0.0 CBC Comment DIFF FINAL Differential Comment Total Protein 6.1 Albumin 2.4 Alkaline Phosphatase 69 Aspartate Amino Transf (AST/SGOT) 20 Alanine Aminotransferase (ALT/SGPT) 12 Total Bilirubin 0.5 Cardiovascular: Regular Lungs: Clear Abdomen: Other (lap sites c/d/i; ileostomy is place with very minimal stool output; abdomen tender; SHIRLEY in place ) Extremities: Other (mild generalized edema ) A/P Assessment and Plan 57 year old female POD2 robotic asst laparoscopic sigmoidectomy, lap GUSTAVO> 60 minutes, rigid proctosigmoidoscopy -Sips of clear liquids okay -Continue IVF -Pain control -Zofran/Reglan/Scop patch -Lovenox -OOB as tolerated -PT eval and treat Attending Statement patient seen at bedside going slow having nausea tx with meds 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 I reviewed and agree with the findings presented. I attest that I had a [id number] encounter with the patient on the same day, and personally performed and documented my assessment and findings in the medical record. Haley Soto/First Mingo KINCAID Jul 20, 2017 11:38 Shaw Mae MD Jul 23, 2017 11:06
--- NOTE | 2017-07-20 12:11 | HHI.CCPN ---
Subjective Remarks/Hospital Course 57-year-old female with past medical history of diverticulitis in February 2017. She developed a diverticular abscess in April that failed IR drainage. She underwent laparoscopy and washout with diverting ileostomy and drain by Dr. Mae. Today she has returned for elective sigmoidectomy. Significant adhesions were encountered which resulted in prolonged 10 hour laparoscopic robotic-assisted surgery. Dr. Mae states colorectal anastomosis staple line leaked in OR x2. No leak was encountered on final anastomosis. Critical care medicine is consulted for resuscitation and ventilator management as patient will remain intubated following prolonged procedure. Intraoperatively received she received 3 L Crystalloid EBL was 300. Urine output was 500. In the last hour since arrival to PACU she has had 100 mL of urine output. 07/20: Well hydrated and well perfused. Mild edema. Breathing comfortably. Nausea improved. Objective Vital Signs Date Time Temp Pulse Resp B/P (MAP) Pulse Ox O2 Delivery O2 Flow Rate FiO2 07/20/17 10:32 96 Nasal Cannula 2.00 07/20/17 10:00 100 07/20/17 08:00 99.1 14 146/95 (112) 07/19/17 06:15 100 Intake and Output 07/20/17 07/20/17 07/21/17 08:00 16:00 00:00 Intake Total 60 ml Output Total 650 ml Balance -590 ml Result Diagram: 07/20/17 0420 07/20/17 0420 Objective Remarks GENERAL: Well-nourished, well-developed patient. SKIN: Warm and dry, well perfused. HEAD: Atraumatic. Normocephalic. EYES: Pupils equal and round. No scleral icterus. No injection or drainage. ENT: No nasal bleeding or discharge. Mucous membranes pink and moist. NECK: Trachea midline. Airway widely patent. CARDIOVASCULAR: Regular rate and rhythm. No murmurs rubs or gallops. NL S1S2, no JVD. RESPIRATORY: No accessory muscle use. Clear to auscultation. Breath sounds equal bilaterally. GASTROINTESTINAL: Abdomen soft, mildly distended, hypoactive bowel sounds. PRERNA in left abdomen with serosang drainage. Low transverse Remedios dressing in place. Ileostomy right abdomen with pink mucosa, minimal output. MUSCULOSKELETAL: Extremities without clubbing, cyanosis, or edema. No obvious deformities. Well perfused. NEUROLOGICAL: Alert, cooperative. A/P Assessment and Plan NEURO: Postoperative pain Propofol as needed for sedation. Target RASS 0 Lortab as needed for pain. Fentanyl as needed for breakthrough pain RESP: Acute respiratory failure Asthma IS q2h [place] CV: Monitor hemodynamics Bolus 1 L LR now D5NS with 20 mEq of KCl per liter at 75 mL per hour GI: Diverticulitis complicated by abscess in April 2017 Ileostomy Status post laparoscopic robotic-assisted sigmoidectomy and anastomosis GERD Nothing by mouth NG tube to low intermittent suction. Management and diet advancement will get discretion of general surgery. Bowel regimen with Colace twice a day, Entereg, reglan FEN/RENAL: IV fluids as per above. Monitor electrolytes. Replace lytes as indicated per ICU electrolyte replacement protocol. ID: On perioperative cefazolin and Flagyl HEME: Obtain postop CBC ENDO: Hypothyroidism Continue Synthroid 125 g by mouth daily PROPH: SCDs for DVT prophylaxis. Lovenox 40 milligrams subcutaneous daily for DVT prophylaxis, and initiate 3/15 if Hgb stable. ACCESS: Peripheral IV providing adequate access at this time. Overall impression: Stable respiratory and hemodynamic status. Jose L Starr MD Jul 20, 2017 12:11
[2017-07-20] MEDS: ENOXAPARIN SODIUM 40 MG/0.4 ML SYRINGE SQ SCH (12:25)
[2017-07-20] MEDS: ACETAMINOPHEN/HYDROcodone 325 MG/5 MG TAB PO PRN ×3 (14:16→22:07)
[2017-07-20] MEDS: ONDANSETRON HCL 4 MG/2 ML VIAL IV PUSH PRN ×2 (14:16→22:07)
[2017-07-20] MEDS ORDERED: ENALAPRILAT 2.5 MG/2 ML VIAL IV PUSH PRN (16:15)
[2017-07-21] VITALS (14 sets, daily range): BP systolic 94–137; BP diastolic 55–78; PULSE 78–92; RESP 11–21; TEMP 97.9–99.1; O2SAT 97–100
[2017-07-21] MEDS: D5-NS + KCL 20 MEQ INJ 1,000 ML IV SCH ×3 (05:51→21:00)
[2017-07-21] MEDS: ONDANSETRON HCL 4 MG/2 ML VIAL IV PUSH PRN ×3 (05:51→18:11)
[2017-07-21] MEDS: METOCLOPRAMIDE HCL 10 MG/2 ML VIAL IV PUSH SCH ×2 (05:51→13:42)
[2017-07-21] MEDS: PCA - TOTAL MG MORPHINE DELIVERED PER SHIFT SCH ×3 (06:00→22:00)
[2017-07-21] MEDS: MORPHINE SULFATE 30 MG/30 ML PCA IV SCH (06:17)
[2017-07-21] MEDS: CHLORHEXIDINE 0.12% (ORAL KIT) 15 ML CUP MT SCH ×2 (08:00→20:00)
[2017-07-21] MEDS: PANTOPRAZOLE SODIUM 40 MG VIAL IV PUSH SCH (09:00)
[2017-07-21] MEDS: DOCUSATE SODIUM 100 MG CAP PO SCH (09:48)
[2017-07-21] MEDS: SODIUM CHLORIDE 0.9% FLUSH 10 ML FLUSH IV FLUSH SCH ×2 (09:48→21:00)
[2017-07-21] MEDS: ALVIMOPAN 12 MG CAPSULE - Post-op dosing PO SCH (09:49)
[2017-07-21] MEDS: ACETAMINOPHEN/HYDROcodone 325 MG/5 MG TAB PO PRN ×3 (09:49→18:12)
[2017-07-21] MEDS: LEVOTHYROXINE SODIUM 125 MCG TAB PO SCH (09:49)
[2017-07-21] MEDS: ENOXAPARIN SODIUM 40 MG/0.4 ML SYRINGE SQ SCH (13:42)
--- NOTE | 2017-07-21 15:04 | HHI.CCPN ---
Subjective Remarks/Hospital Course 57-year-old female with past medical history of diverticulitis in February 2017. She developed a diverticular abscess in April that failed IR drainage. She underwent laparoscopy and washout with diverting ileostomy and drain by Dr. Mae. Today she has returned for elective sigmoidectomy. Significant adhesions were encountered which resulted in prolonged 10 hour laparoscopic robotic-assisted surgery. Dr. Mae states colorectal anastomosis staple line leaked in OR x2. No leak was encountered on final anastomosis. Critical care medicine is consulted for resuscitation and ventilator management as patient will remain intubated following prolonged procedure. Intraoperatively received she received 3 L Crystalloid EBL was 300. Urine output was 500. In the last hour since arrival to PACU she has had 100 mL of urine output. 07/20: Well hydrated and well perfused. Mild edema. Breathing comfortably. Nausea improved. 07/21: Sitting up in chair, breathing comfortably. Only complaint is that the broth is too salty. No abdominal complaints. Objective Vital Signs Date Time Temp Pulse Resp B/P (MAP) Pulse Ox O2 Delivery O2 Flow Rate FiO2 07/21/17 10:49 22 07/21/17 07:00 97 Nasal Cannula 2.00 07/21/17 06:00 79 07/21/17 04:00 98.2 102/66 (78) 07/19/17 06:15 100 Intake and Output 07/21/17 07/21/17 07/22/17 08:00 16:00 00:00 Intake Total 1240 ml Output Total 580 ml Balance 660 ml Result Diagram: 07/20/17 0420 07/20/17 0420 Objective Remarks GENERAL: Well-nourished, well-developed patient. SKIN: Warm and dry, well perfused. HEAD: Atraumatic. Normocephalic. EYES: Pupils equal and round. No scleral icterus. No injection or drainage. ENT: No nasal bleeding or discharge. Mucous membranes pink and moist. NECK: Trachea midline. Airway widely patent. No stridor or obstruction. CARDIOVASCULAR: Regular rate and rhythm. No murmurs rubs or gallops. NL S1S2, no JVD. RESPIRATORY: No accessory muscle use. Clear to auscultation. Breath sounds equal bilaterally. GASTROINTESTINAL: Abdomen soft, mildly distended, hypoactive bowel sounds. PRERNA in left abdomen with serosang drainage. Low transverse Remedios dressing in place. Ileostomy right abdomen with pink mucosa, minimal output. MUSCULOSKELETAL: Extremities without clubbing, cyanosis, or edema. No obvious deformities. Well perfused. NEUROLOGICAL: Alert, cooperative. Moves 4 limbs to 5/5 strength. Swallows without difficulty. A/P Assessment and Plan NEURO: Postoperative pain Propofol as needed for sedation. Target RASS 0 Lortab as needed for pain. Fentanyl as needed for breakthrough pain RESP: Acute respiratory failure Asthma IS q2h [place] CV: Monitor hemodynamics Bolus 1 L LR now D5NS with 20 mEq of KCl per liter at 75 mL per hour -> convert to PO intake. GI: Diverticulitis complicated by abscess in April 2017 Ileostomy Status post laparoscopic robotic-assisted sigmoidectomy and anastomosis GERD Nothing by mouth NG tube to low intermittent suction. Management and diet advancement will get discretion of general surgery. Bowel regimen with Colace twice a day, Entereg, reglan FEN/RENAL: IV fluids as per above. Monitor electrolytes. Replace lytes as indicated per ICU electrolyte replacement protocol. ID: On perioperative cefazolin and Flagyl HEME: Obtain postop CBC ENDO: Hypothyroidism Continue Synthroid 125 g by mouth daily PROPH: SCDs for DVT prophylaxis. Lovenox 40 milligrams subcutaneous daily for DVT prophylaxis, and initiate 3/15 if Hgb stable. ACCESS: Peripheral IV providing adequate access at this time. Overall impression: Stable respiratory and hemodynamic status. No intestinal symptoms or complaints. She looks great today. Jose L Starr MD Jul 21, 2017 15:04
--- NOTE | 2017-07-21 19:54 | HHI.PR ---
Subjective Subjective Notes Pain better; nausea better; tolerating clears Objective Vitals/I&O Vital Signs Date Time Temp Pulse Resp B/P (MAP) Pulse Ox O2 Delivery O2 Flow Rate FiO2 07/21/17 19:16 16 07/21/17 18:00 80 07/21/17 07:00 97 Nasal Cannula 2.00 07/21/17 04:00 98.2 102/66 (78) 07/19/17 06:15 100 Lungs: Clear Abdomen: Non-distended Narrative Exam Wounds all clean and dry; gideon intact without erythema A/P Assessment and Plan Assessment and Plan 57 year old female POD#3 robotic asst laparoscopic sigmoidectomy, lap GUSTAVO> 60 minutes, rigid proctosigmoidoscopy -Sips of clear liquids tolerating well -Continue IVF -Pain control -Zofran/Reglan/Scop patch -Lovenox -OOB as tolerated -Keep in ISC today Tim Isaacs MD Jul 21, 2017 19:54
[2017-07-22] VITALS (12 sets, daily range): BP systolic 106–165; BP diastolic 64–83; PULSE 84–100; RESP 11–25; TEMP 98.4–99.5; O2SAT 93–97
[2017-07-22] MEDS: DOCUSATE SODIUM 100 MG CAP PO SCH ×3 (01:06→21:31)
[2017-07-22] MEDS: ALVIMOPAN 12 MG CAPSULE - Post-op dosing PO SCH ×3 (01:06→21:31)
[2017-07-22] MEDS: METOCLOPRAMIDE HCL 10 MG/2 ML VIAL IV PUSH SCH ×4 (01:07→21:32)
[2017-07-22] MEDS: LEVOTHYROXINE SODIUM 125 MCG TAB PO SCH (05:53)
[2017-07-22] MEDS: D5-NS + KCL 20 MEQ INJ 1,000 ML IV SCH ×2 (05:54→16:00)
[2017-07-22] MEDS: PCA - TOTAL MG MORPHINE DELIVERED PER SHIFT SCH ×3 (06:00→22:00)
[2017-07-22] MEDS: ACETAMINOPHEN/HYDROcodone 325 MG/5 MG TAB PO PRN ×5 (06:05→22:30)
[2017-07-22 07:10] LABS: AUTOMATED NEUTROPHIL # 8.5 TH/MM3 (1.8-7.7); BASOPHIL % 0.2 % (0.0-2.0); EOSINOPHIL # 0.1 TH/MM3 (0-0.4); EOSINOPHIL % 1.3 % (0.0-4.0); HEMOGLOBIN 10.4 GM/DL (11.6-15.3); LYMPH % 12.9 % (9.0-44.0); LYMPHOCYTE # 1.4 TH/MM3 (1.0-4.8); MEAN CELL VOLUME 89.8 FL (80.0-100.0); MEAN CORPUSCULAR HEMOGLOBIN 30.1 PG (27.0-34.0); MEAN CORPUSCULAR HGB CONC 33.5 % (32.0-36.0); MEAN PLATELET VOLUME 8.5 FL (7.0-11.0); MONO % 8.6 % (0.0-8.0); MONOCYTE # 0.9 TH/MM3 (0-0.9); PLATELET COUNT 164 TH/MM3 (150-450); RED BLOOD COUNT 3.45 MIL/MM3 (4.00-5.30); RED CELL DISTRIBUTION WIDTH 15.6 % (11.6-17.2)
[2017-07-22] MEDS: CHLORHEXIDINE 0.12% (ORAL KIT) 15 ML CUP MT SCH ×2 (08:00→20:00)
[2017-07-22] MEDS: SODIUM CHLORIDE 0.9% FLUSH 10 ML FLUSH IV FLUSH SCH ×2 (09:00→21:31)
[2017-07-22] MEDS: SCOPOLAMINE 1.5 MG PATCH T-DERMAL SCH (10:41)
[2017-07-22] MEDS: REMOVE OLD SCOPOLAMINE PATCH T-DERMAL SCH (10:41)
[2017-07-22] MEDS: ONDANSETRON HCL 4 MG/2 ML VIAL IV PUSH PRN (10:42)
[2017-07-22] MEDS: PANTOPRAZOLE SODIUM 40 MG VIAL IV PUSH SCH (10:42)
[2017-07-22] MEDS: ENOXAPARIN SODIUM 40 MG/0.4 ML SYRINGE SQ SCH (10:44)
--- NOTE | 2017-07-22 11:44 | HHI.PR ---
Subjective Subjective Notes no acute issues, pain better, oob, no fevers Objective Vitals/I&O Vital Signs Date Time Temp Pulse Resp B/P (MAP) Pulse Ox O2 Delivery O2 Flow Rate FiO2 07/22/17 10:42 19 07/22/17 06:00 94 Room Air 07/22/17 06:00 96 07/22/17 04:00 99.5 129/83 (98) 07/21/17 19:00 2.00 07/19/17 06:15 100 Labs Laboratory Tests Test 07/22/17 05:54 White Blood Count 11.0 Red Blood Count 3.45 Hemoglobin 10.4 Hematocrit 31.0 Mean Corpuscular Volume 89.8 Mean Corpuscular Hemoglobin 30.1 Mean Corpuscular Hemoglobin Concent 33.5 Red Cell Distribution Width 15.6 Platelet Count 164 Mean Platelet Volume 8.5 Neutrophils (%) (Auto) 77.0 Lymphocytes (%) (Auto) 12.9 Monocytes (%) (Auto) 8.6 Eosinophils (%) (Auto) 1.3 Basophils (%) (Auto) 0.2 Neutrophils # (Auto) 8.5 Lymphocytes # (Auto) 1.4 Monocytes # (Auto) 0.9 Eosinophils # (Auto) 0.1 Basophils # (Auto) 0.0 CBC Comment DIFF FINAL Differential Comment Lungs: Clear Abdomen: Other (soft, incisional tenderness, benton, ivette sxn serosang, ostomy with gas and stool) A/P Assessment and Plan 57 year old female POD#4 robotic asst laparoscopic sigmoidectomy, lap GUSTAVO> 60 minutes, rigid proctosigmoidoscopy -full liq +shakes -Continue IVF -Pain control -Zofran/Reglan/Scop patch -Lovenox -OOB as tolerated -transfer to floor - IS spirometery and deep breathing - removed quinones tomorrow, keep today for strict Is and Os hSaw Mae MD Jul 22, 2017 11:44
--- NOTE | 2017-07-22 13:01 | HHI.CCPN ---
Subjective Remarks/Hospital Course 57-year-old female with past medical history of diverticulitis in February 2017. She developed a diverticular abscess in April that failed IR drainage. She underwent laparoscopy and washout with diverting ileostomy and drain by Dr. Mae. Today she has returned for elective sigmoidectomy. Significant adhesions were encountered which resulted in prolonged 10 hour laparoscopic robotic-assisted surgery. Dr. Mae states colorectal anastomosis staple line leaked in OR x2. No leak was encountered on final anastomosis. Critical care medicine is consulted for resuscitation and ventilator management as patient will remain intubated following prolonged procedure. Intraoperatively received she received 3 L Crystalloid EBL was 300. Urine output was 500. In the last hour since arrival to PACU she has had 100 mL of urine output. 07/20: Well hydrated and well perfused. Mild edema. Breathing comfortably. Nausea improved. 07/21: Sitting up in chair, breathing comfortably. Only complaint is that the broth is too salty. No abdominal complaints. 07/22: Up in chair, breathing comfortably. No GI complaints. Objective Vital Signs Date Time Temp Pulse Resp B/P (MAP) Pulse Ox O2 Delivery O2 Flow Rate FiO2 07/22/17 10:42 19 07/22/17 06:00 94 Room Air 07/22/17 06:00 96 07/22/17 04:00 99.5 129/83 (98) 07/21/17 19:00 2.00 07/19/17 06:15 100 Intake and Output 07/22/17 07/22/17 07/23/17 08:00 16:00 00:00 Intake Total 360 ml Output Total 555 ml Balance -195 ml Result Diagram: 07/22/17 0554 07/20/17 0420 Objective Remarks GENERAL: Well-nourished, well-developed patient. SKIN: Warm and dry, well perfused. HEAD: Atraumatic. Normocephalic. EYES: Pupils equal and round. No scleral icterus. No injection or drainage. ENT: No nasal bleeding or discharge. Mucous membranes pink and moist. NECK: Trachea midline. Airway widely patent. No stridor or obstruction. CARDIOVASCULAR: Regular rate and rhythm. No murmurs rubs or gallops. NL S1S2, no JVD. RESPIRATORY:Clear to auscultation. Breath sounds equal bilaterally. Comfortable pattern. Effective cough. GASTROINTESTINAL: Abdomen soft, mildly distended, hypoactive bowel sounds. Low transverse Remedios dressing in place. Ileostomy right abdomen with pink mucosa MUSCULOSKELETAL: Extremities without clubbing, cyanosis, or edema. No obvious deformities. Well perfused. NEUROLOGICAL: Alert, cooperative. Moves 4 limbs to 5/5 strength. Swallows without difficulty. O X 3 and cooperative. A/P Assessment and Plan NEURO: Postoperative pain Propofol as needed for sedation. Target RASS 0 Lortab as needed for pain. Fentanyl as needed for breakthrough pain RESP: Acute respiratory failure Asthma IS q2h WA CV: Monitor hemodynamics Bolus 1 L LR now D5NS with 20 mEq of KCl per liter at 75 mL per hour -> convert to PO intake. GI: Diverticulitis complicated by abscess in April 2017 Ileostomy Status post laparoscopic robotic-assisted sigmoidectomy and anastomosis GERD Nothing by mouth NG tube to low intermittent suction. Management and diet advancement will get discretion of general surgery. Bowel regimen with Colace twice a day, Entereg, reglan FEN/RENAL: IV fluids as per above. Monitor electrolytes. Replace lytes as indicated per ICU electrolyte replacement protocol. ID: On perioperative cefazolin and Flagyl HEME: Obtain postop CBC ENDO: Hypothyroidism Continue Synthroid 125 g by mouth daily PROPH: SCDs for DVT prophylaxis. Lovenox 40 milligrams subcutaneous daily for DVT prophylaxis, and initiate 3/15 if Hgb stable. ACCESS: Peripheral IV providing adequate access at this time. Overall impression: Stable respiratory and hemodynamic status. No intestinal symptoms or complaints. Will sign off. Jose L Starr MD Jul 22, 2017 13:01
[2017-07-22] MEDS: MORPHINE SULFATE 30 MG/30 ML PCA IV SCH (18:16)
[2017-07-23] VITALS (12 sets, daily range): BP systolic 108–136; BP diastolic 67–96; PULSE 61–100; RESP 14–25; TEMP 98.8–99.1; O2SAT 92–99
[2017-07-23] MEDS: METOCLOPRAMIDE HCL 10 MG/2 ML VIAL IV PUSH SCH ×3 (05:07→22:00)
[2017-07-23] MEDS: PCA - TOTAL MG MORPHINE DELIVERED PER SHIFT SCH ×3 (06:00→22:00)
[2017-07-23] MEDS: CHLORHEXIDINE 0.12% (ORAL KIT) 15 ML CUP MT SCH ×2 (08:00→20:00)
[2017-07-23] MEDS: ONDANSETRON HCL 4 MG/2 ML VIAL IV PUSH PRN ×2 (09:29→20:33)
[2017-07-23] MEDS: ALVIMOPAN 12 MG CAPSULE - Post-op dosing PO SCH ×2 (09:29→20:33)
[2017-07-23] MEDS: DOCUSATE SODIUM 100 MG CAP PO SCH ×2 (09:29→20:32)
[2017-07-23] MEDS: SODIUM CHLORIDE 0.9% FLUSH 10 ML FLUSH IV FLUSH SCH ×2 (09:30→20:32)
[2017-07-23] MEDS: PANTOPRAZOLE SODIUM 40 MG VIAL IV PUSH SCH (09:30)
[2017-07-23] MEDS: ACETAMINOPHEN/HYDROcodone 325 MG/5 MG TAB PO PRN ×3 (09:30→20:33)
[2017-07-23] MEDS: LEVOTHYROXINE SODIUM 125 MCG TAB PO SCH (09:30)
[2017-07-23] MEDS: D5-NS + KCL 20 MEQ INJ 1,000 ML IV SCH ×4 (09:31→20:34)
[2017-07-23] MEDS: ENOXAPARIN SODIUM 40 MG/0.4 ML SYRINGE SQ SCH (12:42)
--- NOTE | 2017-07-23 16:20 | HHI.PR ---
cc: Shaw Mae MD Subjective Subjective Notes Seen this AM about 1000 More pain this AM Up to chair Objective Vitals/I&O Vital Signs Date Time Temp Pulse Resp B/P (MAP) Pulse Ox O2 Delivery O2 Flow Rate FiO2 07/23/17 14:00 16 07/23/17 12:00 99.1 92 127/67 (87) 07/23/17 08:00 95 07/23/17 07:00 Room Air 07/21/17 19:00 2.00 Labs Laboratory Tests Test 07/23/17 16:00 Cardiovascular: Regular Lungs: Clear Abdomen: Other (SHIRLEY in place; IVETTE with SS drainage; lap sites c/d/i; ileostomy with minimal stool output ) A/P Assessment and Plan 57 year old female POD3 robotic asst laparoscopic sigmoidectomy, lap GUSTAVO> 60 minutes, rigid proctosigmoidoscopy -Repeat labs today; if increase in WBC--- will plan to repeat CT abd/pelvis -Continue full liquids for now -Continue IVF -Pain control -Zofran/Reglan/Scop patch -Lovenox -OOB as tolerated -PT eval and treat Attending Statement patient seen at bedside recheck labs if increase wbc may need reCT continue pain control oob ivette sxn Attestation The exam, history, and the medical decision-making described in the above note were completed with the assistance of the mid-level provider. I reviewed and agree with the findings presented. I attest that I had a [id number] encounter with the patient on the same day, and personally performed and documented my assessment and findings in the medical record. Haley SotoP/Sumo Wrestler SANJIV Jul 23, 2017 16:20 Shaw Mae MD Jul 26, 2017 15:57
[2017-07-23 16:24] LABS: AUTOMATED NEUTROPHIL # 8.8 TH/MM3 (1.8-7.7); BASOPHIL # 0.1 TH/MM3 (0-0.2); BASOPHIL % 0.5 % (0.0-2.0); EOSINOPHIL # 0.3 TH/MM3 (0-0.4); HEMATOCRIT 37.4 % (35.0-46.0); LYMPHOCYTE # 2.7 TH/MM3 (1.0-4.8); MEAN CELL VOLUME 89.8 FL (80.0-100.0); MEAN CORPUSCULAR HEMOGLOBIN 28.8 PG (27.0-34.0); MEAN CORPUSCULAR HGB CONC 32.1 % (32.0-36.0); MEAN PLATELET VOLUME 8.8 FL (7.0-11.0); MONO % 8.5 % (0.0-8.0); MONOCYTE # 1.1 TH/MM3 (0-0.9); PLATELET COUNT 256 TH/MM3 (150-450); RED BLOOD COUNT 4.16 MIL/MM3 (4.00-5.30); RED CELL DISTRIBUTION WIDTH 15.3 % (11.6-17.2)
[2017-07-23 16:44] LABS: ALBUMIN 2.2 GM/DL (3.4-5.0); ALT (GPT) 17 U/L (10-53); AST (GOT) 23 U/L (15-37); BICARBONATE 26.9 MEQ/L (21.0-32.0); BLOOD UREA NITROGEN 4 MG/DL (7-18); CALCIUM 8.2 MG/DL (8.5-10.1); CHLORIDE 105 MEQ/L (98-107); GLOMERULAR FILTRATION RATE 127 ML/MIN (>89); GLUCOSE,RANDOM 89 MG/DL (74-106); SODIUM (NA) 138 MEQ/L (136-145)
[2017-07-23 16:46] LABS: ALKALINE PHOSPHATASE 90 U/L (45-117); TOTAL BILIRUBIN ADULT 0.4 MG/DL (0.2-1.0); TOTAL PROTEIN 6.6 GM/DL (6.4-8.2)
[2017-07-23] MEDS: MORPHINE SULFATE 30 MG/30 ML PCA IV SCH (23:00)
[2017-07-24] VITALS (10 sets, daily range): BP systolic 114–122; BP diastolic 66–82; PULSE 78–98; RESP 14–19; TEMP 97.2–99.3; O2SAT 96–97
[2017-07-24] MEDS: ACETAMINOPHEN/HYDROcodone 325 MG/5 MG TAB PO PRN ×4 (00:08→19:27)
[2017-07-24] MEDS: D5-NS + KCL 20 MEQ INJ 1,000 ML IV SCH ×2 (04:33→10:05)
[2017-07-24 05:33] LABS: AUTOMATED NEUTROPHIL # 6.1 TH/MM3 (1.8-7.7); BASOPHIL % 0.5 % (0.0-2.0); EOSINOPHIL # 0.2 TH/MM3 (0-0.4); EOSINOPHIL % 2.5 % (0.0-4.0); HEMATOCRIT 29.8 % (35.0-46.0); HEMOGLOBIN 9.8 GM/DL (11.6-15.3); LYMPH % 21.2 % (9.0-44.0); MEAN CELL VOLUME 90.3 FL (80.0-100.0); MEAN CORPUSCULAR HEMOGLOBIN 29.8 PG (27.0-34.0); MEAN PLATELET VOLUME 8.2 FL (7.0-11.0); MONO % 11.3 % (0.0-8.0); MONOCYTE # 1.1 TH/MM3 (0-0.9); NEUT % 64.5 % (16.0-70.0); PLATELET COUNT 206 TH/MM3 (150-450); RED CELL DISTRIBUTION WIDTH 15.4 % (11.6-17.2); WHITE BLOOD COUNT 9.5 TH/MM3 (4.0-11.0)
[2017-07-24 05:57] LABS: ALBUMIN 1.9 GM/DL (3.4-5.0); AST (GOT) 16 U/L (15-37); BICARBONATE 29.1 MEQ/L (21.0-32.0); BLOOD UREA NITROGEN 4 MG/DL (7-18); CHLORIDE 107 MEQ/L (98-107); CREATININE 0.46 MG/DL (0.50-1.00); GLOMERULAR FILTRATION RATE 140 ML/MIN (>89); GLUCOSE,RANDOM 98 MG/DL (74-106); SODIUM (NA) 142 MEQ/L (136-145)
[2017-07-24] MEDS: PCA - TOTAL MG MORPHINE DELIVERED PER SHIFT SCH ×3 (06:00→21:35)
[2017-07-24] MEDS: LEVOTHYROXINE SODIUM 125 MCG TAB PO SCH (06:00)
[2017-07-24] MEDS: METOCLOPRAMIDE HCL 10 MG/2 ML VIAL IV PUSH SCH ×3 (06:00→21:36)
[2017-07-24 06:01] LABS: ALKALINE PHOSPHATASE 76 U/L (45-117); ALT (GPT) 17 U/L (10-53); TOTAL BILIRUBIN ADULT 0.3 MG/DL (0.2-1.0); TOTAL PROTEIN 5.7 GM/DL (6.4-8.2)
[2017-07-24] MEDS: CHLORHEXIDINE 0.12% (ORAL KIT) 15 ML CUP MT SCH ×2 (08:00→20:00)
[2017-07-24] MEDS: ONDANSETRON HCL 4 MG/2 ML VIAL IV PUSH PRN ×3 (10:05→19:28)
[2017-07-24] MEDS: PANTOPRAZOLE SODIUM 40 MG VIAL IV PUSH SCH (10:06)
[2017-07-24] MEDS: SODIUM CHLORIDE 0.9% FLUSH 10 ML FLUSH IV FLUSH SCH ×2 (10:07→21:00)
[2017-07-24] MEDS: ALVIMOPAN 12 MG CAPSULE - Post-op dosing PO SCH ×2 (10:07→21:34)
[2017-07-24] MEDS: DOCUSATE SODIUM 100 MG CAP PO SCH ×2 (10:07→21:34)
[2017-07-24] MEDS: ENOXAPARIN SODIUM 40 MG/0.4 ML SYRINGE SQ SCH (12:48)
--- NOTE | 2017-07-24 15:49 | HHI.PR ---
Subjective Subjective Notes Feeling much better Pain better controlled today Objective Vitals/I&O Vital Signs Date Time Temp Pulse Resp B/P (MAP) Pulse Ox O2 Delivery O2 Flow Rate FiO2 07/24/17 15:42 15 07/24/17 06:00 94 07/24/17 04:00 98.3 118/78 (91) 97 07/23/17 19:00 Room Air 07/21/17 19:00 2.00 Labs Laboratory Tests Test 07/23/17 16:00 07/24/17 04:41 White Blood Count 13.0 9.5 Red Blood Count 4.16 3.30 Hemoglobin 12.0 9.8 Hematocrit 37.4 29.8 Mean Corpuscular Volume 89.8 90.3 Mean Corpuscular Hemoglobin 28.8 29.8 Mean Corpuscular Hemoglobin Concent 32.1 33.0 Red Cell Distribution Width 15.3 15.4 Platelet Count 256 206 Mean Platelet Volume 8.8 8.2 Neutrophils (%) (Auto) 68.0 64.5 Lymphocytes (%) (Auto) 21.0 21.2 Monocytes (%) (Auto) 8.5 11.3 Eosinophils (%) (Auto) 2.0 2.5 Basophils (%) (Auto) 0.5 0.5 Neutrophils # (Auto) 8.8 6.1 Lymphocytes # (Auto) 2.7 2.0 Monocytes # (Auto) 1.1 1.1 Eosinophils # (Auto) 0.3 0.2 Basophils # (Auto) 0.1 0.0 CBC Comment DIFF FINAL DIFF FINAL Differential Comment Blood Urea Nitrogen 4 4 Creatinine 0.50 0.46 Random Glucose 89 98 Total Protein 6.6 5.7 Albumin 2.2 1.9 Calcium Level 8.2 8.0 Alkaline Phosphatase 90 76 Aspartate Amino Transf (AST/SGOT) 23 16 Alanine Aminotransferase (ALT/SGPT) 17 17 Total Bilirubin 0.4 0.3 Sodium Level 138 142 Potassium Level 4.0 4.1 Chloride Level 105 107 Carbon Dioxide Level 26.9 29.1 Anion Gap 6 6 Estimat Glomerular Filtration Rate 127 140 Cardiovascular: Regular Lungs: Clear Abdomen: Other (SHIRLEY in place; PRERNA with SS drainage; ileostomy with stool; mild tenderness to palpation ) Extremities: No edema A/P Assessment and Plan 57 year old female POD4 robotic asst laparoscopic sigmoidectomy, lap GUSTAVO> 60 minutes, rigid proctosigmoidoscopy -WBC normal; afebrile -Repeat CBC tomorrow -Advance to regular soft diet -Decrease IVF -Pain control -Zofran/Reglan/Scop patch -Lovenox -OOB as tolerated -PT eval and treat -Transfer to 7N Attending Statement patient seen at bedside doing better pain better ok for soft diet and transfer to floor Attestation The exam, history, and the medical decision-making described in the above note were completed with the assistance of the mid-level provider. I reviewed and agree with the findings presented. I attest that I had a [id number] encounter with the patient on the same day, and personally performed and documented my assessment and findings in the medical record. Haley Soto/First Mingo KINCAID Jul 24, 2017 15:49 Shaw Mae MD Jul 29, 2017 06:24
[2017-07-24] MEDS: ZOLPIDEM TARTRATE 10 MG TAB PO PRN (23:21)
[2017-07-25] VITALS (8 sets, daily range): BP systolic 127–141; BP diastolic 72–89; PULSE 76–94; RESP 16–18; TEMP 97–99.6; O2SAT 93–98
[2017-07-25] MEDS: ACETAMINOPHEN/HYDROcodone 325 MG/5 MG TAB PO PRN ×3 (00:07→19:35)
[2017-07-25] MEDS: ONDANSETRON HCL 4 MG/2 ML VIAL IV PUSH PRN (00:08)
[2017-07-25] MEDS: METOCLOPRAMIDE HCL 10 MG/2 ML VIAL IV PUSH SCH ×3 (04:40→21:27)
[2017-07-25] MEDS: PCA - TOTAL MG MORPHINE DELIVERED PER SHIFT SCH ×3 (06:00→21:27)
[2017-07-25] MEDS: LEVOTHYROXINE SODIUM 125 MCG TAB PO SCH (06:13)
[2017-07-25] MEDS: MORPHINE SULFATE 30 MG/30 ML PCA IV SCH (07:40)
[2017-07-25] MEDS: CHLORHEXIDINE 0.12% (ORAL KIT) 15 ML CUP MT SCH ×2 (08:00→19:45)
[2017-07-25] MEDS: DOCUSATE SODIUM 100 MG CAP PO SCH ×2 (09:00→21:26)
[2017-07-25] MEDS: PANTOPRAZOLE SODIUM 40 MG VIAL IV PUSH SCH (09:00)
[2017-07-25] MEDS: SODIUM CHLORIDE 0.9% FLUSH 10 ML FLUSH IV FLUSH SCH ×2 (09:00→21:00)
[2017-07-25] MEDS: ALVIMOPAN 12 MG CAPSULE - Post-op dosing PO SCH ×2 (09:00→21:27)
[2017-07-25 11:54] LABS: AUTOMATED NEUTROPHIL # 8.1 TH/MM3 (1.8-7.7); BASOPHIL % 0.2 % (0.0-2.0); EOSINOPHIL # 0.2 TH/MM3 (0-0.4); EOSINOPHIL % 1.5 % (0.0-4.0); HEMATOCRIT 32.3 % (35.0-46.0); HEMOGLOBIN 10.8 GM/DL (11.6-15.3); LYMPH % 16.7 % (9.0-44.0); LYMPHOCYTE # 1.9 TH/MM3 (1.0-4.8); MEAN CELL VOLUME 89.6 FL (80.0-100.0); MEAN CORPUSCULAR HEMOGLOBIN 29.8 PG (27.0-34.0); MEAN CORPUSCULAR HGB CONC 33.3 % (32.0-36.0); MONO % 8.5 % (0.0-8.0); MONOCYTE # 0.9 TH/MM3 (0-0.9); NEUT % 73.1 % (16.0-70.0); PLATELET COUNT 270 TH/MM3 (150-450); RED BLOOD COUNT 3.61 MIL/MM3 (4.00-5.30); RED CELL DISTRIBUTION WIDTH 15.3 % (11.6-17.2); WHITE BLOOD COUNT 11.1 TH/MM3 (4.0-11.0)
[2017-07-25] MEDS: D5-NS + KCL 20 MEQ INJ 1,000 ML IV SCH ×2 (12:00→19:44)
[2017-07-25] MEDS: ENOXAPARIN SODIUM 40 MG/0.4 ML SYRINGE SQ SCH (12:00)
[2017-07-25] MEDS: SCOPOLAMINE 1.5 MG PATCH T-DERMAL SCH ×2 (12:00→16:32)
[2017-07-25] MEDS: REMOVE OLD SCOPOLAMINE PATCH T-DERMAL SCH (12:00)
[2017-07-25 12:16] LABS: ALBUMIN 2.3 GM/DL (3.4-5.0); ALT (GPT) 22 U/L (10-53); AST (GOT) 29 U/L (15-37); BICARBONATE 28.2 MEQ/L (21.0-32.0); BLOOD UREA NITROGEN 4 MG/DL (7-18); CALCIUM 8.7 MG/DL (8.5-10.1); CHLORIDE 102 MEQ/L (98-107); CREATININE 0.53 MG/DL (0.50-1.00); GLOMERULAR FILTRATION RATE 119 ML/MIN (>89); GLUCOSE,RANDOM 83 MG/DL (74-106); SODIUM (NA) 140 MEQ/L (136-145)
[2017-07-25 12:19] LABS: ALKALINE PHOSPHATASE 96 U/L (45-117); TOTAL BILIRUBIN ADULT 0.4 MG/DL (0.2-1.0); TOTAL PROTEIN 6.8 GM/DL (6.4-8.2)
--- NOTE | 2017-07-25 15:58 | HHI.PR ---
cc: Shaw Mae MD Subjective Subjective Notes Up walking around Feeling good today Tolerated her meals but is taking it slow Pain much better today Objective Vitals/I&O Vital Signs Date Time Temp Pulse Resp B/P (MAP) Pulse Ox O2 Delivery O2 Flow Rate FiO2 07/25/17 12:44 Room Air 07/25/17 12:00 98.6 93 17 133/82 (99) 96 07/21/17 19:00 2.00 Labs Laboratory Tests Test 07/25/17 10:53 White Blood Count 11.1 Red Blood Count 3.61 Hemoglobin 10.8 Hematocrit 32.3 Mean Corpuscular Volume 89.6 Mean Corpuscular Hemoglobin 29.8 Mean Corpuscular Hemoglobin Concent 33.3 Red Cell Distribution Width 15.3 Platelet Count 270 Mean Platelet Volume 8.0 Neutrophils (%) (Auto) 73.1 Lymphocytes (%) (Auto) 16.7 Monocytes (%) (Auto) 8.5 Eosinophils (%) (Auto) 1.5 Basophils (%) (Auto) 0.2 Neutrophils # (Auto) 8.1 Lymphocytes # (Auto) 1.9 Monocytes # (Auto) 0.9 Eosinophils # (Auto) 0.2 Basophils # (Auto) 0.0 CBC Comment DIFF FINAL Differential Comment Blood Urea Nitrogen 4 Creatinine 0.53 Random Glucose 83 Total Protein 6.8 Albumin 2.3 Calcium Level 8.7 Alkaline Phosphatase 96 Aspartate Amino Transf (AST/SGOT) 29 Alanine Aminotransferase (ALT/SGPT) 22 Total Bilirubin 0.4 Sodium Level 140 Potassium Level 3.4 Chloride Level 102 Carbon Dioxide Level 28.2 Anion Gap 10 Estimat Glomerular Filtration Rate 119 Cardiovascular: Regular Lungs: Clear Abdomen: Other (incisions all c/d/i; SHIRLEY removed and dry dressing applied; PRERNA with serous fluid; abdomen soft; minimally tender ) Extremities: No edema A/P Assessment and Plan 57 year old female POD5 robotic asst laparoscopic sigmoidectomy, lap GUSTAVO> 60 minutes, rigid proctosigmoidoscopy -WBC increased just a little; afebrile -Tolerating regular soft diet -DC IVF -Pain control---[place]---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 I reviewed and agree with the findings presented. I attest that I had a [id number] encounter with the patient on the same day, and personally performed and documented my assessment and findings in the medical record. Haley Soto/First Mingo KINCAID Jul 25, 2017 15:58 Shaw Mae MD Jul 29, 2017 20:24
--- NOTE | 2017-07-25 15:59 | HHI.FF ---
Face to Face Verification Diagnosis: (1) Diverticulitis (2) S/P ileostomy (3) S/P laparoscopic-assisted sigmoidectomy Physical Therapy Order: Evaluate and Treat, Improve ambulation, Strength and gait training Instructions: No restrictions Home Health Nursing Order: Wound care and dressing changes Nursing assessment with vital signs Instructions: Continue ileostomy care and teaching I have seen patient Genesis James on 07/25/17. My clinical findings support the need for the requested home health care services because: Limited ability to care for self High risk of falls I certify that my clinical findings support that this patient is homebound because: Post-op weakness Haley SotoP/[facility] CORPORATE COMMUNICATIONS SPECIALIST Jul 25, 2017 15:59
[2017-07-25] MEDS ORDERED: BEDSIDE COMMODE1 MI1 (16:00)
[2017-07-25] MEDS: ZOLPIDEM TARTRATE 10 MG TAB PO PRN (21:29)
[2017-07-26] VITALS: BP 123/74; PULSE 84; RESP 20; TEMP 98.2; O2SAT 94
[2017-07-26 04:00] VITALS: BP 138/88; PULSE 93; RESP 18; TEMP 98.1; O2SAT 94
[2017-07-26] MEDS: ACETAMINOPHEN/HYDROcodone 325 MG/5 MG TAB PO PRN ×4 (05:38→22:36)
[2017-07-26] MEDS: METOCLOPRAMIDE HCL 10 MG/2 ML VIAL IV PUSH SCH (05:39)
[2017-07-26] MEDS: LEVOTHYROXINE SODIUM 125 MCG TAB PO SCH (05:39)
[2017-07-26] MEDS: PCA - TOTAL MG MORPHINE DELIVERED PER SHIFT SCH (05:41)
[2017-07-26 08:00] VITALS: BP 142/81; PULSE 81; RESP 18; TEMP 97.4; O2SAT 94
[2017-07-26] MEDS: CHLORHEXIDINE 0.12% (ORAL KIT) 15 ML CUP MT SCH (08:00)
[2017-07-26] MEDS: SODIUM CHLORIDE 0.9% FLUSH 10 ML FLUSH IV FLUSH SCH ×2 (09:00→21:08)
[2017-07-26] MEDS: DOCUSATE SODIUM 100 MG CAP PO SCH ×2 (09:12→21:09)
[2017-07-26] MEDS: PANTOPRAZOLE SODIUM 40 MG VIAL IV PUSH SCH (09:12)
[2017-07-26] MEDS ORDERED: POTASSIUM CHLORIDE 10 MEQ CONTROLLED RELEASE TAB PO ONE (09:15)
[2017-07-26 12:00] VITALS: BP 144/82; PULSE 97; RESP 17; TEMP 97.5; O2SAT 95
[2017-07-26] MEDS: ENOXAPARIN SODIUM 40 MG/0.4 ML SYRINGE SQ SCH (12:22)
[2017-07-26] MEDS: ONDANSETRON HCL 4 MG/2 ML VIAL IV PUSH PRN (12:23)
--- NOTE | 2017-07-26 13:01 | HHI.PR ---
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 I reviewed and agree with the findings presented. I attest that I had a [id number] encounter with the patient on the same day, and personally performed and documented my assessment and findings in the medical record. Haley Soto/First Mingo KINCAID Jul 26, 2017 13:01 Shaw Mae MD Jul 29, 2017 06:39
[2017-07-26 16:00] VITALS: BP 138/75; PULSE 73; RESP 16; TEMP 98.7; O2SAT 99
[2017-07-26 20:00] VITALS: BP 142/85; PULSE 82; RESP 17; TEMP 97.4; O2SAT 98
[2017-07-26] MEDS: ZOLPIDEM TARTRATE 10 MG TAB PO PRN (21:10)
[2017-07-27] VITALS: BP 140/82; PULSE 80; RESP 17; TEMP 97.9; O2SAT 94
[2017-07-27] MEDS: LEVOTHYROXINE SODIUM 125 MCG TAB PO SCH (06:07)
[2017-07-27] MEDS: ACETAMINOPHEN/HYDROcodone 325 MG/5 MG TAB PO PRN ×3 (06:10→14:37)
[2017-07-27 08:00] VITALS: BP 114/72; PULSE 76; RESP 19; TEMP 97.5; O2SAT 96
[2017-07-27] MEDS: DOCUSATE SODIUM 100 MG CAP PO SCH (08:56)
[2017-07-27] MEDS: SODIUM CHLORIDE 0.9% FLUSH 10 ML FLUSH IV FLUSH SCH (08:59)
[2017-07-27] MEDS ORDERED: PANTOPRAZOLE SOD 40 MG DELAYED RELEASE TAB PO SCH (09:00)
--- NOTE | 2017-07-27 10:05 | HHI.DS ---
Discharge Summary Admission Date Jul 18, 2017 at 10:51 Discharge Date: Jul 27, 2017 Admitting Diagnosis Brief History 57 year old female POD7 robotic asst laparoscopic sigmoidectomy, lap GUSTAVO> 60 minutes, rigid proctosigmoidoscopy CBC/BMP: 07/25/17 1053 07/25/17 1053 Significant Findings Laboratory Tests Test 07/25/17 10:53 White Blood Count 11.1 TH/MM3 (4.0-11.0) Red Blood Count 3.61 MIL/MM3 (4.00-5.30) Hemoglobin 10.8 GM/DL (11.6-15.3) Hematocrit 32.3 % (35.0-46.0) Neutrophils (%) (Auto) 73.1 % (16.0-70.0) Monocytes (%) (Auto) 8.5 % (0.0-8.0) Neutrophils # (Auto) 8.1 TH/MM3 (1.8-7.7) Blood Urea Nitrogen 4 MG/DL (7-18) Albumin 2.3 GM/DL (3.4-5.0) Potassium Level 3.4 MEQ/L (3.5-5.1) PE at Discharge Ambulating in room Cardio: RRR Resp: CTAB Abd: Wounds all clean and dry; gideon intact without erythema; ileostomy with stool; minimal abdominal pain Hospital Course This is a 57 year old female POD7 robotic asst laparoscopic sigmoidectomy, lap GUSTAVO> 60 minutes, rigid proctosigmoidoscopy. The patient is able to tolerate a regular diet. The patient's pain was controlled using oral pain medications. She is able to ambulate. She will follow up Sunday in the office. HHC was arranged. Pt Condition on Discharge: Good Discharge Disposition: Disch w/ Home Health Serv Discharge Instructions DIET: Follow Instructions for: As Tolerated, No Restrictions Activities you can perform: See Additionl Instruction Other Activity Instructions: Continue ostomy care HHC to visit with patient Avoid heavy pushing pulling or lifting Haley Soto/First Mingo KINCAID Jul 27, 2017 10:04
[2017-07-27 12:00] VITALS: BP 110/66; PULSE 72; RESP 20; TEMP 97.2; O2SAT 96
[2017-07-27] MEDS: ENOXAPARIN SODIUM 40 MG/0.4 ML SYRINGE SQ SCH (12:00)
== END 2017-07-27 14:58 | disposition home health service (06) | DRG 329 ==
LOC: HSDI 10:51 → N03B 07-19 02:34 → N07B 07-24 16:19
PROVIDERS: ADMIT Surgery; ATTEND Surgery
PROC: 0TNB4ZZ Release Bladder, Percutaneous Endoscopic Approach (ICD-10-PCS; 2017-07-18)
PROC: 0DNN4ZZ Release Sigmoid Colon, Percutaneous Endoscopic Approach (ICD-10-PCS; 2017-07-18)
PROC: 8E0W4CZ Robotic Assisted Procedure of Trunk Region, Percutaneous Endoscopic Approach (ICD-10-PCS; 2017-07-18)
PROC: 0DJD8ZZ Inspection of Lower Intestinal Tract, Via Natural or Artificial Opening Endoscopic (ICD-10-PCS; 2017-07-18)
PROC: 0BH17EZ Insertion of Endotracheal Airway into Trachea, Via Natural or Artificial Opening (ICD-10-PCS; 2017-07-18)
PROC: 5A1935Z Respiratory Ventilation, Less than 24 Consecutive Hours (ICD-10-PCS; 2017-07-18)
PROC: 0DBN0ZZ Excision of Sigmoid Colon, Open Approach (ICD-10-PCS; principal; 2017-07-18 13:48)
DX: K57.32 Diverticulitis of large intestine without perforation or abscess without bleeding (principal); J96.00 Acute respiratory failure, unspecified whether with hypoxia or hypercapnia; K43.5 Parastomal hernia without obstruction or gangrene; K66.0 Peritoneal adhesions (postprocedural) (postinfection); Z93.2 Ileostomy status; E03.9 Hypothyroidism, unspecified; E78.5 Hyperlipidemia, unspecified; J45.909 Unspecified asthma, uncomplicated; K21.9 Gastro-esophageal reflux disease without esophagitis; F17.200 Nicotine dependence, unspecified, uncomplicated
CPT/HCPCS: 31500; 36600; 71045; 76937; 80048; 80053; 82805; 83735; 84100; 85025; 86850; 86900; 86901; 87641; 88307; 94002; 94150; C9113; J0690; J1100; J1610; J1650; J2250; J2270; J2370; J2405; J2765; J3010; J3480; J7120

== ENCOUNTER 2017-10-16 12:12 | Inpatient (IN) | payer OTHER, MEDICARE ==
[~2017-10-16] VITALS: Ht 147.3 cm; Wt 77.8 kg
[~2017-10-16 12:12] MED LIST changes: +BEDSIDE COMMODE1 MI1; -CIPR-9 PO; +DEXAMETHASONE SOD PHOS 4 MG/ML VIAL IV ONE; +GLYCOPYRROLATE 1 MG/5 ML SYRINGE IV PUSH ONE; +KETOROLAC TROMETHAMINE 30 MG/ML (IVP) VIAL IV PUSH ONE; +LIDOCAINE HCL 1% PF 5 ML SYRINGE OTHER ONE; -METR1TAB76 PO; +MULT-65 PO; +NEOSTIGMINE 5 MG/5 ML SYRINGE IV PUSH ONE; +NORMOSOL R INJ 1,000 ML IV ONE; +ONDANSETRON HCL 4 MG/2 ML VIAL IV PUSH ONE; +PHENYLEPH/NS 1000 MCG/10 ML SYR IV ONE; +PROPOFOL 200 MG/20 ML AMP IV ONE; +ROCURONIUM INJ 50 MG/5 ML SYRINGE IV PUSH ONE; +SENE8.6T PO; +SODIUM CHLOR 0.9% 250 ML INJ 250 ML IV ONE; -TRAM50TA PO; +TRAZ50TA12 PO; +VITA500T4 PO
[2017-10-16] MEDS ORDERED: ACETAMINOPHEN 1000 MG/100 ML 100 ML IV ONE (12:39)
[2017-10-16] MEDS ORDERED: LIDOCAINE HCL 2% 20 ML VIAL ONE (12:39)
[2017-10-16] MEDS ORDERED: DEXMEDETOMIDINE HCL 200 MCG/2 ML VIAL ONE ×2 (12:40→16:12)
[2017-10-16] MEDS ORDERED: KETAMINE HCL 50 MG/5 ML SYRINGE ONE (12:40)
[2017-10-16] MEDS ORDERED: LACTATED RINGER'S 1000 ML IV PRN (12:45)
[2017-10-16] MEDS ORDERED: CHLORHEXIDINE GLUCONATE 2 % 1 PACK (2 CLOTHS) TOPICAL PRN (12:45)
[2017-10-16] MEDS ORDERED: SODIUM CHLORID 0.9% 500 ML IV PRN (12:45)
[2017-10-16] MEDS ORDERED: ALVIMOPAN 12 MG CAPSULE - On Call PO SCH (12:45)
[2017-10-16] MEDS ORDERED: POVIDONE IODINE 5% (ANTISEPSIS KIT) 4 APPLICATIONS EACH NARE PRN (12:45)
[2017-10-16] MEDS ORDERED: METOPROLOL TARTRATE 25 MG TAB PO PRN (12:45)
[2017-10-16] MEDS ORDERED: ceFAZolin 2 GM/DEX PREMIX 50 ML IV SCH (13:00)
[2017-10-16] MEDS ORDERED: METRONIDAZOLE 500 MG/100 ML ISONTONIC SOLN IV SCH (13:00)
[2017-10-16 13:28] LABS: AUTOMATED NEUTROPHIL # 3.8 TH/MM3 (1.8-7.7); BASOPHIL % 0.6 % (0.0-2.0); EOSINOPHIL # 0.1 TH/MM3 (0-0.4); EOSINOPHIL % 1.9 % (0.0-4.0); HEMOGLOBIN 12.6 GM/DL (11.6-15.3); LYMPH % 29.8 % (9.0-44.0); LYMPHOCYTE # 1.9 TH/MM3 (1.0-4.8); MEAN CELL VOLUME 86.7 FL (80.0-100.0); MEAN CORPUSCULAR HEMOGLOBIN 28.8 PG (27.0-34.0); MEAN CORPUSCULAR HGB CONC 33.2 % (32.0-36.0); MEAN PLATELET VOLUME 8.5 FL (7.0-11.0); MONOCYTE # 0.5 TH/MM3 (0-0.9); NEUT % 59.7 % (16.0-70.0); PLATELET COUNT 255 TH/MM3 (150-450); RED BLOOD COUNT 4.38 MIL/MM3 (4.00-5.30); WHITE BLOOD COUNT 6.4 TH/MM3 (4.0-11.0)
[2017-10-16 13:49] LABS: ALBUMIN 3.3 GM/DL (3.4-5.0); ALT (GPT) 17 U/L (10-53); AST (GOT) 17 U/L (15-37); BICARBONATE 25.8 MEQ/L (21.0-32.0); BLOOD UREA NITROGEN 13 MG/DL (7-18); CALCIUM 8.7 MG/DL (8.5-10.1); CHLORIDE 106 MEQ/L (98-107); CREATININE 0.64 MG/DL (0.50-1.00); GLOMERULAR FILTRATION RATE 96 ML/MIN (>89); GLUCOSE,RANDOM 86 MG/DL (74-106); SODIUM (NA) 140 MEQ/L (136-145)
--- NOTE | 2017-10-16 13:49 | HHI.PR ---
Immediate Post Op Note Procedure Date: Oct 16, 2017 Pre Op Diagnosis: diverticulitis, ileostomy, parastomal hernia Post Op Diagnosis: same Surgeon: Shaw Mae MD Vertical Contour Band Saw Operator(s): see or sheet Procedure: ileostomy reversal, repair parastomal hernia, lysis of adhesion >60 minutes Findings: adhesions, large hernia Complications: none Specimen(s) removed: none Estimated blood loss: 15cc Anesthesia: General Patient to: PACU Patient Condition: Good Shaw Mae MD Oct 16, 2017 13:49
[2017-10-16 13:52] LABS: ALKALINE PHOSPHATASE 106 U/L (45-117); TOTAL BILIRUBIN ADULT 0.8 MG/DL (0.2-1.0); TOTAL PROTEIN 7.9 GM/DL (6.4-8.2)
[2017-10-16] MEDS ORDERED: SUGAMMADEX SODIUM 200 MG/2 ML VIAL IV PUSH ONE (16:12)
[2017-10-16] MEDS ORDERED: KETOROLAC TROMETHAMINE 30 MG/ML (IVP) VIAL IVP PRN (16:30)
[2017-10-16] MEDS ORDERED: SODIUM CHLORIDE 0.9% FLUSH 10 ML FLUSH IV FLUSH PRN (16:30)
[2017-10-16] MEDS ORDERED: NALOXONE HCL 0.4 MG/ML AMP IV PUSH PRN (16:30)
[2017-10-16] MEDS ORDERED: diphenhydrAMINE HCL 50 MG/ML VIAL IV PUSH PRN (16:30)
[2017-10-16] MEDS ORDERED: Post-op Orders (for Pharmacy) XX ONE (16:30)
[2017-10-16] MEDS ORDERED: oxyCODONE/ACETAMINOPHEN 5 MG/325 MG TAB PO PRN (16:30)
[2017-10-16] MEDS ORDERED: DO NOT ADM ANY ANTICOAGULANT DRUGS PRN (16:49)
[2017-10-16] MEDS ORDERED: MIDAZOLAM HCL 2 MG/2 ML VIAL ONE (16:56)
[2017-10-16] MEDS ORDERED: *morphine SULFATE 10 MG/ML PERIprocedure ONLY ONE ×2 (17:06→17:30)
[2017-10-16] MEDS ORDERED: ONDANSETRON HCL 4 MG/2 ML VIAL ONE (17:31)
[2017-10-16] MEDS ORDERED: MORPHINE SULFATE 30 MG/30 ML PCA ONE (17:55)
[2017-10-16] MEDS ORDERED: D5-NS + KCL 20 MEQ INJ 1,000 ML ONE (17:55)
[2017-10-16] MEDS ORDERED: ONDANSETRON ODT 4 MG TAB PO PRN (18:00)
[2017-10-16] MEDS: D5-NS + KCL 20 MEQ INJ 1,000 ML IV SCH (18:00)
[2017-10-16 20:30] VITALS: BP 109/57; PULSE 61; RESP 12; TEMP 97.2; O2SAT 95
[2017-10-16] MEDS: DOCUSATE SODIUM 100 MG CAP PO SCH (21:00)
[2017-10-16] MEDS: SODIUM CHLORIDE 0.9% FLUSH 10 ML FLUSH IV FLUSH SCH (21:00)
--- NOTE | 2017-10-16 21:38 | MP ---
cc: Shaw Mae MD, Lars S MD DATE OF OPERATION: 10/16/2017 PREOPERATIVE DIAGNOSIS: History of diverticulitis, status post sigmoidectomy with a diverting ileostomy, parastomal hernia. POSTOPERATIVE DIAGNOSIS: History of diverticulitis, status post sigmoidectomy with a diverting ileostomy, parastomal hernia. PROCEDURE PERFORMED: Open ileostomy reversal, repair of parastomal hernia, lysis of adhesions greater than 60 minutes. SURGEON: Shaw Mae MD COACH OPERATOR: See OR sheet. ANESTHESIA: GETA. IV FLUIDS: See anesthesia sheet. ESTIMATED BLOOD LOSS: 30 mL DRAINS: 10-[place]izen [place] round Rakesh drain. COMPLICATIONS: None. WOUND CLASSIFICATION: Clean/contaminated. FINDINGS: Large parastomal hernia. Good hemostasis. INDICATIONS FOR PROCEDURE: The patient is a 57-year-old female who presents with history of diverticulitis. The patient had initial workup of complication of abscess and intense inflammatory reaction status post laparoscopy with diverting ileostomy and draining. She subsequently underwent laparoscopic sigmoidectomy with primary anastomosis. It was an extensive procedure performed. Ileostomy remained in place. The patient noted to have a parastomal hernia and significant intra-abdominal adhesions as well. Decision was made for reversal of ileostomy. DETAILS OF PROCEDURE: The patient was taken to the operating suite, placed in supine position. She was prepped and draped in usual sterile fashion after induction of general endotracheal anesthesia. Brief timeout done stating correct patient, procedure, surgical site. All were in agreement with this. Attention first directed to the ileostomy site where the stoma site was closed with 0 silk. The patient prepped and draped fully in the usual sterile fashion. A 15-blade was used to incise the ileostomy. Further dissection was done with Bovie electrocautery. The hernia was noted to be somewhat complex with multiple loops of small bowel containing along with a portion of cecum and appendix. These structures were mobilized. Adhesions were lysed with some difficulty and a tedious lysis of adhesions. Once the bowel was appropriately mobilized and an appropriate length was obtained, the ileostomy segment was transected using a blue load 55 BEBETO stapler. Stay stitch was placed. Small enterotomies were made. A through and through layer was done with a BEBETO 55 stapler. Babcocks were used and then a TA was used blue load to transect in completion of the small bowel resection with primary anastomosis. Lembert sutures were done with 2-0 silk sutures. The small mesenteric defect was closed. A crotch stitch was placed with 2-0 silk. The bowel was then reduced back into the abdomen. Clear fascial planes were identified. Hernia sac was removed. A 0 Vicryl was used to close the peritoneal layer. Irrigation done, hemostasis obtained. The fascia was closed with a #1 Prolene [id number] interrupted. This was followed by a running 0 PDS. Next, a 10-[place] round Rakesh drain was placed through stab incision and secured with 2-0 nylon. Following this, some space was closed to [place]'s fascia with 3-0 Vicryl sutures. Murray were then placed. A benton dressing was placed. The patient tolerated the procedure well. All lap and instrument counts were correct at the end of the procedure. The patient was extubated and taken stable to PACU. No intraoperative complication. MD BETH Mlceod/ , 08:55 PM , 09:37 PM PAM
[2017-10-16] MEDS: metroNIDAZOLE 500 MG INJ 100 ML IV SCH (22:55)
[2017-10-17] VITALS: BP 116/79; PULSE 65; RESP 14; TEMP 97.3; O2SAT 95
[2017-10-17] MEDS: D5-NS + KCL 20 MEQ INJ 1,000 ML IV SCH ×4 (02:50→17:17)
[2017-10-17] MEDS: metroNIDAZOLE 500 MG INJ 100 ML IV SCH ×2 (05:03→16:25)
[2017-10-17] MEDS: PCA - TOTAL MG MORPHINE DELIVERED PER SHIFT SCH ×3 (06:00→22:00)
[2017-10-17 08:00] VITALS: BP 123/67; PULSE 77; RESP 17; TEMP 98.2; O2SAT 96
[2017-10-17] MEDS: SCOPOLAMINE 1.5 MG PATCH T-DERMAL SCH (08:36)
[2017-10-17] MEDS: SODIUM CHLORIDE 0.9% FLUSH 10 ML FLUSH IV FLUSH SCH ×2 (08:38→20:26)
[2017-10-17 09:41] LABS: AUTOMATED NEUTROPHIL # 7.6 TH/MM3 (1.8-7.7); BASOPHIL % 0.1 % (0.0-2.0); HEMATOCRIT 33.6 % (35.0-46.0); LYMPH % 12.5 % (9.0-44.0); LYMPHOCYTE # 1.2 TH/MM3 (1.0-4.8); MEAN CELL VOLUME 87.8 FL (80.0-100.0); MEAN CORPUSCULAR HEMOGLOBIN 28.8 PG (27.0-34.0); MEAN CORPUSCULAR HGB CONC 32.8 % (32.0-36.0); MEAN PLATELET VOLUME 8.3 FL (7.0-11.0); MONO % 9.9 % (0.0-8.0); NEUT % 77.5 % (16.0-70.0); PLATELET COUNT 235 TH/MM3 (150-450); RED BLOOD COUNT 3.82 MIL/MM3 (4.00-5.30); RED CELL DISTRIBUTION WIDTH 14.2 % (11.6-17.2); WHITE BLOOD COUNT 9.8 TH/MM3 (4.0-11.0)
[2017-10-17] MEDS: ALVIMOPAN 12 MG CAPSULE - Post-op dosing PO SCH ×2 (09:55→20:22)
[2017-10-17] MEDS: DOCUSATE SODIUM 100 MG CAP PO SCH ×2 (09:55→20:22)
[2017-10-17 10:05] LABS: BICARBONATE 24.2 MEQ/L (21.0-32.0); CALCIUM 8.2 MG/DL (8.5-10.1); CREATININE 0.66 MG/DL (0.50-1.00)
[2017-10-17 12:00] VITALS: BP 111/64; PULSE 68; RESP 16; TEMP 97.8; O2SAT 96
--- NOTE | 2017-10-17 15:01 | HHI.PR ---
Subjective Subjective Notes nausea this am, c/o pain oob to BR Objective Vitals/I&O Vital Signs Date Time Temp Pulse Resp B/P (MAP) Pulse Ox O2 Delivery O2 Flow Rate FiO2 10/17/17 12:00 97.8 68 16 111/64 (80) 96 10/16/17 19:15 Nasal Cannula 2 Labs Laboratory Tests Test 10/17/17 09:04 White Blood Count 9.8 Red Blood Count 3.82 Hemoglobin 11.0 Hematocrit 33.6 Mean Corpuscular Volume 87.8 Mean Corpuscular Hemoglobin 28.8 Mean Corpuscular Hemoglobin Concent 32.8 Red Cell Distribution Width 14.2 Platelet Count 235 Mean Platelet Volume 8.3 Neutrophils (%) (Auto) 77.5 Lymphocytes (%) (Auto) 12.5 Monocytes (%) (Auto) 9.9 Eosinophils (%) (Auto) 0.0 Basophils (%) (Auto) 0.1 Neutrophils # (Auto) 7.6 Lymphocytes # (Auto) 1.2 Monocytes # (Auto) 1.0 Eosinophils # (Auto) 0.0 Basophils # (Auto) 0.0 CBC Comment DIFF FINAL Differential Comment Blood Urea Nitrogen 12 Creatinine 0.66 Random Glucose 124 Calcium Level 8.2 Sodium Level 143 Potassium Level 4.1 Chloride Level 111 Carbon Dioxide Level 24.2 Anion Gap 8 Estimat Glomerular Filtration Rate 92 Cardiovascular: Regular Lungs: Clear Abdomen: Other (incisional tenderness, ivette serosang, benton good sxn) A/P Assessment and Plan POD 1 ileostomy take down, GUSTAVO, repair of parastomal hernia PLAN inc nausea meds pain control keep ferry hand one more day start dvt ppx oob ivette sxn Shaw Mae MD Oct 17, 2017 15:01
[2017-10-17 16:00] VITALS: BP 126/78; PULSE 77; RESP 17; TEMP 97.9; O2SAT 97
[2017-10-17 16:17] VITALS: O2SAT 96
[2017-10-17] MEDS: ENOXAPARIN SODIUM 40 MG/0.4 ML SYRINGE SQ SCH (16:25)
[2017-10-17 20:00] VITALS: BP 149/89; PULSE 91; RESP 20; TEMP 98; O2SAT 97
[2017-10-17] MEDS: PROMETHAZINE HCL 12.5 MG SUPP RECTAL PRN (20:21)
[2017-10-18] VITALS: BP 170/98; PULSE 106; RESP 20; TEMP 98.7; O2SAT 95
[2017-10-18] MEDS: PROMETHAZINE HCL 12.5 MG SUPP RECTAL PRN ×3 (01:38→20:34)
[2017-10-18] MEDS: D5-NS + KCL 20 MEQ INJ 1,000 ML IV SCH ×4 (01:55→23:54)
[2017-10-18] MEDS: ONDANSETRON ODT 4 MG TAB SL PRN ×2 (05:29→17:59)
[2017-10-18] MEDS: PCA - TOTAL MG MORPHINE DELIVERED PER SHIFT SCH ×3 (06:00→20:40)
[2017-10-18 08:00] VITALS: BP 166/97; PULSE 97; RESP 18; TEMP 97.6; O2SAT 95
[2017-10-18] MEDS: SODIUM CHLORIDE 0.9% FLUSH 10 ML FLUSH IV FLUSH SCH ×2 (08:27→20:40)
[2017-10-18] MEDS: DOCUSATE SODIUM 100 MG CAP PO SCH ×2 (08:44→20:34)
[2017-10-18] MEDS: ALVIMOPAN 12 MG CAPSULE - Post-op dosing PO SCH ×2 (08:44→20:34)
[2017-10-18 12:00] VITALS: BP_SYST 167; BP_SYST 170; BP_DIAS 102; BP_DIAS 104; PULSE 86; PULSE 94; RESP 18; TEMP 98.9; TEMP 99.4; O2SAT 95; O2SAT 96
--- NOTE | 2017-10-18 14:04 | RADRPT ---
EXAM DATE: 10/18/2017 1:56 PM EDT AGE/SEX: 57 years / Female INDICATIONS: Nausea and vomiting post ileostomy reversal 3 days ago CLINICAL DATA: This is the patient's initial encounter. Patient reports that signs and symptoms have been present for 3 days and indicates a pain score of 0/10. MEDICAL/SURGICAL HISTORY: . hiatal hernia. asthma. . colon resection, ileostomy reversal. c-se ction. parastomal hernia COMPARISON: C, CHEST SINGLE AP, 07/19/2017. . FINDINGS: The abdominal bowel gas pattern is unremarkable except for dense collection of what appears to be ba rium in the right upper quadrant. There is no evidence of pathologic distention or mass effect. No abnormal masses, calcifications, or organomegaly is seen. The osseous structures are unremarkable . Small radiopaque catheter remains evident in the right lower quadrant. Postsurgical changes following right acetabular reconstruction are noted. CONCLUSION: No evidence of significant ileus Density material in the right upper quadrant of the abdomen presumably representing barium within the colon. Radiopaque catheter in the right lower quadrant. Electronically signed by: Jeffrey Cameron MD 10/18/2017 2:03 PM EDT
--- NOTE | 2017-10-18 14:44 | HHI.PR ---
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
[2017-10-18] MEDS: ENOXAPARIN SODIUM 40 MG/0.4 ML SYRINGE SQ SCH (15:23)
[2017-10-18] MEDS: METOCLOPRAMIDE HCL 10 MG/2 ML VIAL IV SCH ×2 (15:23→23:51)
[2017-10-18 16:00] VITALS: BP 170/102; PULSE 86; RESP 18; TEMP 99.4; O2SAT 96
[2017-10-18 20:00] VITALS: BP 159/96; PULSE 90; RESP 18; TEMP 99.4; O2SAT 94
[2017-10-19] VITALS: BP 155/100; PULSE 94; RESP 18; TEMP 98.6; O2SAT 94
[2017-10-19 04:00] VITALS: BP 163/92; PULSE 89; RESP 18; TEMP 99; O2SAT 94
[2017-10-19] MEDS: ONDANSETRON ODT 4 MG TAB SL PRN ×2 (05:09→14:03)
[2017-10-19] MEDS: METOCLOPRAMIDE HCL 10 MG/2 ML VIAL IV SCH ×3 (05:09→21:26)
[2017-10-19] MEDS: PCA - TOTAL MG MORPHINE DELIVERED PER SHIFT SCH ×3 (06:00→21:32)
--- NOTE | 2017-10-19 07:35 | HHI.PR ---
Subjective Subjective Notes pain better, still with nausea, dry heaves, no bowel fxn Objective Vitals/I&O Vital Signs Date Time Temp Pulse Resp B/P (MAP) Pulse Ox O2 Delivery O2 Flow Rate FiO2 10/19/17 06:00 20 10/19/17 04:00 99.0 89 163/92 (115) 94 10/17/17 16:17 21 10/16/17 19:15 Nasal Cannula 2 Cardiovascular: Regular Lungs: Clear Abdomen: Other (incision with benton, ivette serosang, incisional tenderness) A/P Assessment and Plan s/p ileostomy take down, GUSTAVO, repair of parastomal hernia PLAN inc nausea meds, add marinol, ppi, lactulose d/c data capture specialist start dvt ppx oob ivette sxn d/c drain encourage oShaw Rosenberg MD Oct 19, 2017 07:34
[2017-10-19] MEDS ORDERED: LACTULOSE SYRUP 20 GM/30 ML CUP PO ONE (07:45)
[2017-10-19 08:00] VITALS: BP 152/95; PULSE 91; RESP 17; TEMP 98.1; O2SAT 92
[2017-10-19] MEDS: SODIUM CHLORIDE 0.9% FLUSH 10 ML FLUSH IV FLUSH SCH ×2 (09:00→21:00)
[2017-10-19] MEDS: PANTOPRAZOLE SODIUM 40 MG VIAL IV PUSH SCH ×2 (10:17→21:23)
[2017-10-19] MEDS: D5-NS + KCL 20 MEQ INJ 1,000 ML IV SCH ×2 (10:17→17:36)
[2017-10-19] MEDS: ALVIMOPAN 12 MG CAPSULE - Post-op dosing PO SCH ×2 (10:18→21:23)
[2017-10-19] MEDS: DOCUSATE SODIUM 100 MG CAP PO SCH ×2 (10:18→21:23)
[2017-10-19 12:00] VITALS: BP 165/102; PULSE 87; RESP 17; TEMP 98; O2SAT 94
[2017-10-19] MEDS: DRONABINOL 5 MG CAP PO SCH ×2 (13:48→17:35)
[2017-10-19 16:00] VITALS: BP 151/101; PULSE 83; RESP 17; TEMP 98.4; O2SAT 95
[2017-10-19] MEDS: ENOXAPARIN SODIUM 40 MG/0.4 ML SYRINGE SQ SCH (17:36)
[2017-10-19 20:00] VITALS: BP 154/86; PULSE 80; RESP 18; TEMP 98.4; O2SAT 97
[2017-10-20] VITALS: BP 170/105; PULSE 90; RESP 18; TEMP 97.4; O2SAT 97
[2017-10-20] MEDS: D5-NS + KCL 20 MEQ INJ 1,000 ML IV SCH ×3 (01:54→18:28)
[2017-10-20 04:00] VITALS: BP 142/97; PULSE 89; RESP 17; TEMP 98.4; O2SAT 97
[2017-10-20] MEDS: METOCLOPRAMIDE HCL 10 MG/2 ML VIAL IV SCH ×3 (05:47→23:24)
[2017-10-20] MEDS: MORPHINE SULFATE 30 MG/30 ML PCA IV SCH (05:53)
[2017-10-20] MEDS: PCA - TOTAL MG MORPHINE DELIVERED PER SHIFT SCH ×3 (06:00→19:54)
[2017-10-20] MEDS: PANTOPRAZOLE SODIUM 40 MG VIAL IV PUSH SCH ×2 (07:58→19:51)
[2017-10-20] MEDS: SODIUM CHLORIDE 0.9% FLUSH 10 ML FLUSH IV FLUSH SCH ×2 (07:59→19:51)
[2017-10-20] MEDS: ALVIMOPAN 12 MG CAPSULE - Post-op dosing PO SCH ×2 (07:59→19:51)
[2017-10-20] MEDS: DOCUSATE SODIUM 100 MG CAP PO SCH ×2 (07:59→19:51)
[2017-10-20 08:00] VITALS: BP 137/81; PULSE 70; RESP 16; TEMP 97.4; O2SAT 95
[2017-10-20] MEDS: REMOVE OLD SCOPOLAMINE PATCH T-DERMAL SCH (08:05)
[2017-10-20] MEDS: SCOPOLAMINE 1.5 MG PATCH T-DERMAL SCH (08:05)
[2017-10-20] MEDS: ONDANSETRON ODT 4 MG TAB SL PRN ×2 (10:00→18:38)
[2017-10-20] MEDS: DRONABINOL 5 MG CAP PO SCH ×2 (11:00→15:32)
[2017-10-20 12:00] VITALS: BP 139/81; PULSE 78; RESP 18; TEMP 98; O2SAT 95
[2017-10-20] MEDS: ENOXAPARIN SODIUM 40 MG/0.4 ML SYRINGE SQ SCH (15:32)
[2017-10-20 16:00] VITALS: BP 127/81; PULSE 77; RESP 18; TEMP 98.3; O2SAT 96
--- NOTE | 2017-10-20 16:23 | HHI.PR ---
Subjective Subjective Notes feels well, wants to eat regular food, passing flatus Objective Vitals/I&O Vital Signs Date Time Temp Pulse Resp B/P (MAP) Pulse Ox O2 Delivery O2 Flow Rate FiO2 10/20/17 14:00 14 10/20/17 12:00 98.0 78 139/81 (100) 95 10/17/17 16:17 21 10/16/17 19:15 Nasal Cannula 2 Cardiovascular: Regular Lungs: Clear Abdomen: Non-distended, Post-op tenderness Narrative Exam inc c/d/i A/P Assessment and Plan 57yo female s/p ileostomy take down, GUSTAVO, repair of parastomal hernia -OOB -tolerating clears, advance -decrease IVF -pain controlled Jason Cardoza MD Oct 20, 2017 16:23
[2017-10-20 20:00] VITALS: BP 119/77; PULSE 83; RESP 17; TEMP 98.1; O2SAT 95
[2017-10-21] VITALS: BP 134/79; PULSE 78; RESP 17; TEMP 98.1; O2SAT 94
[2017-10-21] MEDS: ZOLPIDEM TARTRATE 10 MG TAB PO PRN ×2 (00:05→22:19)
[2017-10-21 04:00] VITALS: BP 128/78; PULSE 74; RESP 17; TEMP 97.9; O2SAT 97
[2017-10-21] MEDS: D5-NS + KCL 20 MEQ INJ 1,000 ML IV SCH ×2 (06:11→15:07)
[2017-10-21] MEDS: PCA - TOTAL MG MORPHINE DELIVERED PER SHIFT SCH ×3 (06:12→22:00)
[2017-10-21] MEDS: METOCLOPRAMIDE HCL 10 MG/2 ML VIAL IV SCH ×3 (06:12→22:19)
[2017-10-21] MEDS: PANTOPRAZOLE SODIUM 40 MG VIAL IV PUSH SCH ×2 (07:47→20:49)
[2017-10-21 08:00] VITALS: BP 120/74; PULSE 73; RESP 18; TEMP 97.7; O2SAT 97
[2017-10-21] MEDS: SODIUM CHLORIDE 0.9% FLUSH 10 ML FLUSH IV FLUSH SCH ×2 (09:00→20:48)
[2017-10-21] MEDS: DOCUSATE SODIUM 100 MG CAP PO SCH ×2 (09:00→20:48)
[2017-10-21] MEDS: ALVIMOPAN 12 MG CAPSULE - Post-op dosing PO SCH ×2 (09:00→20:48)
[2017-10-21 12:00] VITALS: BP 124/85; PULSE 82; RESP 18; TEMP 98.2; O2SAT 98
--- NOTE | 2017-10-21 12:21 | HHI.PR ---
Subjective Subjective Notes Patient says she feels better every day. She is sitting up looking out the window at the [place]. She is eating and drinking passing gas and having bowel function. Her pain is well controlled. She is still using the RATING CLERK. Objective Vitals/I&O Vital Signs Date Time Temp Pulse Resp B/P (MAP) Pulse Ox O2 Delivery O2 Flow Rate FiO2 10/21/17 08:00 97.7 73 18 120/74 (89) 97 10/17/17 16:17 21 Cardiovascular: Regular Lungs: Clear Abdomen: Non-distended, Other (PIC O dressing intact with small amount of dried light green drainage. No abdominal tenderness to palpation. Few normal bowel sounds present.) A/P Assessment and Plan Postop ileostomy takedown. Resolution of postoperative nausea. Patient's bowel and bladder function appear to have returned normally. She requests the RATING CLERK be kept available to her for another day. Continue current care. Pedro Livingston MD Oct 21, 2017 12:21
[2017-10-21] MEDS: DRONABINOL 5 MG CAP PO SCH ×2 (12:23→16:11)
[2017-10-21 16:00] VITALS: BP 119/78; PULSE 88; RESP 16; TEMP 98.1; O2SAT 95
[2017-10-21] MEDS: ENOXAPARIN SODIUM 40 MG/0.4 ML SYRINGE SQ SCH (16:11)
[2017-10-21] MEDS: ONDANSETRON ODT 4 MG TAB SL PRN (16:14)
[2017-10-21 20:00] VITALS: BP 116/74; PULSE 76; RESP 18; TEMP 98.4; O2SAT 95
[2017-10-22] VITALS: BP 134/78; PULSE 83; RESP 18; TEMP 97.6; O2SAT 95
[2017-10-22] MEDS: D5-NS + KCL 20 MEQ INJ 1,000 ML IV SCH ×3 (02:15→21:26)
[2017-10-22] MEDS: MORPHINE SULFATE 30 MG/30 ML PCA IV SCH (04:11)
[2017-10-22] MEDS: PCA - TOTAL MG MORPHINE DELIVERED PER SHIFT SCH (06:00)
[2017-10-22] MEDS: METOCLOPRAMIDE HCL 10 MG/2 ML VIAL IV SCH ×3 (06:37→21:26)
--- NOTE | 2017-10-22 07:28 | HHI.PR ---
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
[2017-10-22] MEDS ORDERED: MORPHINE SULFATE 4 MG/ML INJ IM PRN (07:30)
[2017-10-22 08:00] VITALS: BP 131/81; PULSE 81; RESP 16; TEMP 97.8; O2SAT 95
[2017-10-22] MEDS: SODIUM CHLORIDE 0.9% FLUSH 10 ML FLUSH IV FLUSH SCH ×2 (08:03→20:07)
[2017-10-22] MEDS: ALVIMOPAN 12 MG CAPSULE - Post-op dosing PO SCH ×2 (08:03→20:07)
[2017-10-22] MEDS: PANTOPRAZOLE SODIUM 40 MG VIAL IV PUSH SCH ×2 (08:03→20:07)
[2017-10-22] MEDS: DOCUSATE SODIUM 100 MG CAP PO SCH ×2 (08:03→20:07)
[2017-10-22] MEDS: ONDANSETRON ODT 4 MG TAB SL PRN (09:42)
[2017-10-22 12:00] VITALS: BP 130/78; PULSE 77; RESP 16; TEMP 98; O2SAT 98
[2017-10-22] MEDS: DRONABINOL 5 MG CAP PO SCH ×2 (14:51→18:07)
[2017-10-22 16:00] VITALS: BP 154/96; PULSE 81; RESP 16; TEMP 98.3; O2SAT 97
[2017-10-22] MEDS: ENOXAPARIN SODIUM 40 MG/0.4 ML SYRINGE SQ SCH (16:00)
[2017-10-22 20:00] VITALS: BP 147/78; PULSE 80; RESP 17; TEMP 98.3; O2SAT 94
[2017-10-22] MEDS: ZOLPIDEM TARTRATE 10 MG TAB PO PRN (21:26)
[2017-10-22] MEDS: oxyCODONE/ACETAMINOPHEN 5 MG/325 MG TAB PO PRN (21:32)
[2017-10-23] VITALS: BP 128/74; PULSE 76; RESP 17; TEMP 97; O2SAT 95
[2017-10-23] MEDS: METOCLOPRAMIDE HCL 10 MG/2 ML VIAL IV SCH ×2 (05:48→14:11)
[2017-10-23] MEDS: oxyCODONE/ACETAMINOPHEN 5 MG/325 MG TAB PO PRN ×2 (05:48→12:27)
[2017-10-23 08:00] VITALS: BP 124/75; PULSE 77; RESP 16; TEMP 98.2; O2SAT 97
[2017-10-23] MEDS: SODIUM CHLORIDE 0.9% FLUSH 10 ML FLUSH IV FLUSH SCH (08:59)
[2017-10-23] MEDS: PANTOPRAZOLE SODIUM 40 MG VIAL IV PUSH SCH (08:59)
[2017-10-23] MEDS: DOCUSATE SODIUM 100 MG CAP PO SCH (09:00)
[2017-10-23] MEDS: ALVIMOPAN 12 MG CAPSULE - Post-op dosing PO SCH (09:00)
[2017-10-23] MEDS: SCOPOLAMINE 1.5 MG PATCH T-DERMAL SCH (09:01)
[2017-10-23] MEDS: D5-NS + KCL 20 MEQ INJ 1,000 ML IV SCH (09:02)
[2017-10-23] MEDS: REMOVE OLD SCOPOLAMINE PATCH T-DERMAL SCH (09:02)
--- NOTE | 2017-10-23 09:05 | HHI.FF ---
Face to Face Verification Diagnosis: (1) Status post reversal of ileostomy (2) Diverticulitis Home Health Nursing Order: Medication education-adverse effect Wound care and dressing changes Nursing assessment with vital signs Instructions: SHIRLEY dressing in place Prior PRERNA ---dry dressing daily I have seen patient Genesis James on 10/23/17. My clinical findings support the need for the requested home health care services because: Limited ability to care for self High risk of falls I certify that my clinical findings support that this patient is homebound because: Post-op weakness Haley Soto/Transit Coach Operator WRITER EDITOR Oct 23, 2017 09:05
--- NOTE | 2017-10-23 09:30 | HHI.PR ---
Subjective Subjective Notes patient doing much better, tolerating po, having bms Objective Vitals/I&O Vital Signs Date Time Temp Pulse Resp B/P (MAP) Pulse Ox O2 Delivery O2 Flow Rate FiO2 10/23/17 08:00 98.2 77 16 124/75 (91) 97 Cardiovascular: Regular Lungs: Clear Abdomen: Other A/P Assessment and Plan s/p ileostomy take down, GUSTAVO, repair of parastomal hernia PLAN po pain meds dvt ppx dry dressing to gideon encourage oob d/c home today, will plan to for transportation arrangements Shaw Mae MD Oct 23, 2017 09:30
--- NOTE | 2017-10-23 10:05 | HHI.DS ---
Discharge Summary Admission Date Oct 16, 2017 at 12:12 Discharge Date: Oct 23, 2017 Admitting Diagnosis Brief History 57 year old female s/p ileostomy take down, GUSTAVO, repair of parastomal hernia PE at Discharge Alert and awake Cardio: RRR Resp: CTAB Abd: SHIRLEY removed Hospital Course This is a 57 year old female s/p ileostomy take down, GUSTAVO, repair of parastomal hernia. The patient's pain was controlled using oral pain medications. She was able to tolerate a regular diet. C has been set up for the patient. She will follow up in the office. Pt Condition on Discharge: Good Discharge Disposition: Disch w/ Home Health Serv Discharge Instructions DIET: Follow Instructions for: As Tolerated, No Restrictions Activities you can perform: See Additionl Instruction Other Activity Instructions: Okay to shower ---pat incisions dry No bath tubs; swimming pool; [place] Haley Soto/First Mingo KINCAID Oct 23, 2017 10:05
[2017-10-23] MEDS: DRONABINOL 5 MG CAP PO SCH ×2 (12:28→14:58)
[2017-10-23] MEDS: ENOXAPARIN SODIUM 40 MG/0.4 ML SYRINGE SQ SCH (14:58)
== END 2017-10-23 15:00 | disposition home health service (06) | DRG 331 ==
LOC: HSDI 12:12 → N07A 19:40
PROVIDERS: ADMIT Surgery; ATTEND Surgery
PROC: 0WQF0ZZ Repair Abdominal Wall, Open Approach (ICD-10-PCS; 2017-10-16)
PROC: 0DNW0ZZ Release Peritoneum, Open Approach (ICD-10-PCS; 2017-10-16)
PROC: 0DBB0ZZ Excision of Ileum, Open Approach (ICD-10-PCS; principal; 2017-10-16 13:38)
DX: K43.5 Parastomal hernia without obstruction or gangrene (principal); Z43.2 Encounter for attention to ileostomy; E66.9 Obesity, unspecified; K66.0 Peritoneal adhesions (postprocedural) (postinfection); R11.0 Nausea; K21.9 Gastro-esophageal reflux disease without esophagitis; M19.90 Unspecified osteoarthritis, unspecified site; Z68.35 Body mass index [BMI] 35.0-35.9, adult; Z91.040 Latex allergy status
CPT/HCPCS: 74018; 80048; 80053; 85025; 88304; 88307; 94150; C9113; J0131; J0690; J1100; J1650; J1885; J2250; J2270; J2370; J2405; J2710; J2765; J3010; J3480; J7050; J7120